=== PATIENT | male | born 1940 | race Caucasian/White ===

== ENCOUNTER 2018-07-31 12:07 | Emergency (ER) | payer MEDICARE, MEDICAID, SELFPAY ==
[2018-07-31 12:08] VITALS: BP 94/57; PULSE 74; RESP 18; TEMP 36.8; O2SAT 95; BMI 22.5
[2018-07-31 12:51] LABS: Bacteria 0 SEEN /hpf (None Seen); Mucous, Urine 0 SEEN /hpf (<or=2+); Red Blood Cells-Urine 0 SEEN /hpf (0-5); Squamous Epithelial Cells - UA 0 SEEN /hpf (0-5); White Blood Cells 0 SEEN /hpf (0-5)
[2018-07-31 12:56] LABS: Color, Urine Yellow (Yellow); Glucose, Dipstick Normal (Normal); Ketone-Dipstick Negative (Negative); Leukocyte Esterase-Dipstick Negative /ul (Negative); Nitrite-Dipstick Negative (Negative); Occult Blood-Urine Negative /ul (Negative); Protein-Dipstick Negative (Negative); Specific Gravity, Urine 1.015 (1.002-1.030); Urine Bilirubin Dipstick Negative (Negative); Urine Clarity Clear (Clear); Urine Urobilinogen Normal (Normal); Urine pH 6.5 (5.0 - 8.0)
[2018-07-31 13:08] LABS: Absolute Lymphocyte Count 0.74 X10^3/ul (0.83-4.51); Absolute Neutrophil Count 8.4 X10^3/uL (2.0-7.7); Basophil# 0.01 X10^3/uL; Basophil% 0.1 % (0-1); Eosinophil# 0.02 X10^3/uL; Eosinophils% 0.2 % (0-5); Hemoglobin 13.3 g/dl (13.0-16.5); Lymphocyte # 0.74 X10^3/ul (4.0); Lymphocyte % 7.5 % (19-41); Mean Corp Hgb Conc 31.7 g/gl (32-36); Mean Corpuscular Hgb 29.4 pg (27.0-32.0); Mean Corpuscular Volume 92.7 fL (80-94); Mean Platelet Vol. 8.6 fl (6.2-12.0); Monocyte# 0.67 X10^3/uL; Monocyte% 6.8 % (0-10); Neutrophil # 8.43 X10^3/uL (2.7-7.7); Platelet Count 140 K/mm3 (150-450); RBC Distribution Width CV 13.4 % (11.6-14.6); RBC Distribution Width SD 45.4 fl (35.1-43.9); Red Blood Count 4.53 M/mm3 (4.6-6.2); White Blood Count 9.9 K/mm3 (4.4-11.0)
[2018-07-31 13:09] LABS: POSITIVE COUNT NO; POSITIVE DIFFERENTIAL NO; POSITIVE MORPHOLOGY NO
[2018-07-31 13:18] LABS: Anion Gap 7 (5-15); BUN 21 mg/dL (7-18); BUN/Creat Ratio 27.6 RATIO (10-20); Calcium,Total 8.6 mg/dL (8.5-10.1); Chloride 108 mmol/L (98-107); Creatinine, Serum 0.76 mg/dL (0.70-1.30); EST Glomerular Filtration Rate 105 mL/min (>60); Est Glom Filt Rate - Afr Amer 127 mL/min (>60); Estimated Creatinine Clearance 58.71 ml/min; Glucose 101 mg/dL (74-106); Potassium 3.3 mmol/L (3.5-5.1); Sodium Level 143 mmol/L (136-145)
--- NOTE | 2018-07-31 14:17 | ED.DCSUM_ITS ---
- ER Visit Summary Date of Service: 07/31/18 Chief Complaint: Urinary retention History of Present Illness: The patient is a 77 M resents with urinary retention that became worse again today. Patient was seen at a different hospital last night and had a straight cath placed. Patient has not been able to urinate since the catheter was placed and removed. Patient has a history of dementia and is a poor historian. Patient was referred to Dr. Lal for follow-up.. Physical Examination: Vital signs are stable. Patient is afebrile. Patient is in no acute distress. Oral mucosa is pink and moist. Neck is supple. Trachea is midline. There is no JVD noted. Heart was regular rate and rhythm. Lungs are clear and equal bilateral. Abdomen is soft. There is some mild suprapubic tenderness. There is some distention of the urinary bladder. There is no rebound or guarding noted. Cranial nerves II through XII are grossly intact. There are no focal motor or sensory deficits noted. The remaining physical exam is within normal limits. Test Results: Urinalysis does not show any evidence of urinary tract infection. CBC and basic metabolic profile was essentially within normal limits. Emergency Department Course and Treatment: Mullen catheter was placed and 750 cc of urine was returned. Mullen catheter was left in place. Patient was given a leg bag. Patient was instructed to follow-up with Dr. Lal in 2-3 days. Patient and family understood and were agreeable with the plan. All questions were answered. Disposition: Discharged to extended care facility Impression: Urinary retention This note was generated with [employer] dictation software. It may contain incorrect words, spelling, and punctuation that were not noted in review of the chart prior to signing ED Disposition - Plan for ED Patient: Disposition: Nursing Home Facility Chief Complaint: Complaint Diagnosis: Urinary retention Instructions: ED Retention Urinary Male Referrals: Emanuel Nelson MD [Primary Care Provider] -
--- OUTSIDE RECORDS SUMMARY | 2018-10-05 09:49 | XMS RPT_ITS ---
:1940 Author Organization [facility] Care Team Providers Name Role Phone JAZMINE ROUSSEAU Attending Unavailable FABRIZIO BURT, DR. DILLON Mccauley Primary Care Unavailable SANJAY BURT, DR. CARRANZA Attending Unavailable FABRIZIO BURT, DR. DILLON Mccauley Primary Care Unavailable FABRIZIO BURT, DR. DILLON Mccauley Primary Care Unavailable NATALIE BURT MD. EVANGELINA Davis Consulting Unavailable MD. EVANGELINA ESTRADA MD. Admitting Unavailable MD. EVANGELINA ESTRADA MD. Attending Unavailable Luigi Curry Attending Unavailable DILLON NELSON Primary Care Unavailable DILLON NELSON Primary Care Unavailable Marcia Arciniega Attending Unavailable DILLON NELSON Primary Care Unavailable Marcia Arciniega Attending Unavailable PROBLEMS PROBLEMS No Problem Records FoundPROCEDURES PROCEDURES No Procedure Records FoundRESULTS RESULTS EMERGENCY DEPARTMENT Observed: 08/09/2018 Status: F Source: [place] 5:08 PM [facility] [place] [place] [facility] Medical Records Department [address] [place] [address] Emergency Department Summary 08/09/18 1511 MR#: [id number] Acct: [id number] Name: BASIL MACKAY Rep #: [id number] : 1940 77 From: Marcia Arciniega MD PCP: Dillon Nelson MD Status: DEP ER - ER Visit Summary Date of Service: 08/09/18 Chief Complaint: Mullen problems History of Present Illness: The patient is a 77 M sent in from [facility] because his Mullen is not draining. Patient was seen in the ER on August 05 for Mullen not draining and then by nurse practitioner for Dr. Lal yesterday. Patient is to continue Cipro. Plan is to have the Mullen removed Sunday morning and then follow-up in the office on Sunday afternoon. Patient was noted to not have the Mullen draining today. ECF reports that they could flush fluid in but not get any return. states the patient's been sleeping more and she is concerned there is more going on. Physical Examination: Vital signs unremarkable. Patient sleeping comfortably. Head neck examination reveals no trauma. Heart is regular rate and rhythm with a 3/6 murmur. Lung sounds are clear. Abdomen is soft and nontender. examination reveals white bloody urine in the leg bag. Mullen had already been advanced and flushed per nursing prior to my eval. Test Results: CBC was normal white count with 12.3 hemoglobin. Chemistry studies significant only for a BUN of 32. Urinalysis reveals 250 of blood and 25-50 RBCs. 10-25 white cells with 1+ bacteria. CT flank shows marked enlargement of the prostate with indentation at the base of the bladder. The catheter is in the bladder and bladder is empty. There is a small noncalcified nodule in the left lower lobe. Emergency Department Course and Treatment: After seeing the patient I spoke with our ER nurse. She states when she went in to see the patient the Mullen seemed to be advanced out further than it should be. It sounds that the patient does get up and walk a lot and they have not been using the secure calf to his leg. With ambulating the Mullen is getting pulled out somewhat. They can then flushed fluid into the catheter, but because the balloon is dislodged it closes over the end of the tube and does not allow anything to be drawn back. When given report back to ECF nurse is sure to advise staff at the [facility] they must use the secure cath and make sure there is no stress on the catheter. Treatment Plan: [] Disposition: Discharge Impression: Mullen dislodgment, resolved This note was generated with [employer] dictation software. It may contain incorrect words, spelling, and punctuation that were not noted in review of the chart prior to signing ED Disposition - Plan for ED Patient: Chief Complaint: Mullen C/O Referrals: Dillon Nelson MD [Primary Care Provider] - What to do if you have Problems For any increased pain, shortness of breath, bleeding, nausea or vomiting, chest pain, or any unexpected problems, contact your Primary Care Provider. Call [facility] ([phone]) or report to the closest Emergency Room. Call 911 if necessary. 08/09/18 1708 <Electronically signed by Marcia Arcinigea MD> Date Marcia Arciniega MD Cosigner Signature (If Indicated): Date CC: Dillon Nelson MD DISCHARGE INSTRUCTION Observed: 08/09/2018 Status: F Source: [place] 3:17 PM [facility] [place] [facility] Medical Records Department [address] [place] [address] Discharge Instruction 08/09/18 1516 MR#: [id number] Acct: [id number] Name: BASIL MACKAY Rep #: [id number] : 1940 77 From: Marcia Arciniega MD PCP: Dillon Nelson MD Status: REG ER ED Disposition - Plan for ED Patient: Disposition: Home or Assisted Living Chief Complaint: Mullen C/O Instructions: ED Catheter Care Mullen Referrals: Saurav Lal MD [STAFF PHYSICIAN] - Keep Teddy appointment What to do if you have Problems For any increased pain, shortness of breath, bleeding, nausea or vomiting, chest pain, or any unexpected problems, contact your Primary Care Provider. Call [facility] ([phone]) or report to the closest Emergency Room. Call 911 if necessary. 08/09/18 1517 <Electronically signed by Marcia Arciniega MD> Date Marcia Arciniega MD Cosigner Signature (If Indicated): Date CC: Dillon Nelson MD URINALYSIS, COMPLETE Collected: 08/09/2018 Status: F Source: [place] 1:40 PM [facility] [place] Order Comment: COLOR OF URINE MAY AFFECT DIPSTICK RESULTS. How was Urine Obtained? CATHETER SPECIMEN TYPE CODE TESTS RESULT OUT OF RANGE REFERENCE UNITS LAB L400.3000 Yellow COLOR Normal Brown LAB L400.3050 Clear Normal CLARITY Cloudy LAB L400.3200 Normal mg/dl Normal GLUCOSE, UR Normal LAB L400.3300 Negative mg/dL Normal BILIRUBIN URINE Negative LAB L400.3400 Negative mg/dl High 5 KETONE UR LAB L400.3465 1.002-1.030 Normal SP.GR. DIPSTX 1.015 LAB L400.3550 5.0 - 8.0 pH UR Normal 6.5 LAB L400.3600 Negative mg/dl High PROT DIPSTX 100 LAB L400.3700 Normal mg/dl Normal UROBILI Normal LAB L400.3750 Negative Normal NITRITE UR Negative LAB L400.3780 Negative /ul High OCCULT BLOOD-UR 250 LAB L400.3800 Negative /ul High LEUK ESTERASE 100 LAB L400.4050 0-5 /hpf WBC Normal 10-25 SEEN LAB L400.4100 0-5 /hpf Normal RBC-UA 25-50 SEEN LAB L400.4150 0-5 /hpf SQUAM Normal EPI 0-5 SEEN LAB L400.4300 None Seen /hpf 1+ Normal BACTERIA LAB L400.4350 <or=2+ /hpf 0 Normal MUCUS, URINE SEEN Performed By: #### L400.0001 #### [facility] [place], [address] CBC W/DIFF, AUTOMATED Collected: 08/09/2018 Status: F Source: [place] 1:40 PM [facility] [place] TYPE CODE TESTS RESULT OUT OF RANGE REFERENCE UNITS LAB L100.1000 4.4-11.0 K/mm3 Normal WBC 9.4 LAB L100.1200 4.6-6.2 M/mm3 Low RBC 4.30 LAB L100.1300 13.0-16.5 g/dl Low HGB 12.3 LAB L100.1400 40-54 % Low HCT 39.9 LAB L100.1500 80-94 fL Normal MCV 92.8 LAB L100.1600 27.0-32.0 pg Normal MCH 28.6 LAB L100.1700 32-36 g/gl Low MCHC 30.8 LAB L100.1810 11.6-14.6 % Normal RDW CV 13.1 LAB L100.1820 35.1-43.9 fl High RDW SD 44.0 LAB L100.1900 150-450 K/mm3 Normal PLT 204 LAB L100.2000 6.2-12.0 fl Normal MPV 8.3 LAB L100.2100 47-70 % High NEUT% 86.6 LAB L100.2200 19-41 % Low LY% 6.5 LAB L100.2300 0-10 % Normal MONO% 5.5 LAB L100.2400 0-5 % Normal EO% 0.3 LAB L100.2500 0-1 % Normal BASO% 0.2 LAB L100.2550 0.0-0.9 % Normal IM GRAN % 0.900 Result Comment: IG% - Immature Granulocytes (promyelocytes, myelocytes and metamyelocytes) > 1% indicates that a LEFT SHIFT is Present. LAB L100.2620 2.0-7.7 X10 3/uL High Absolute Neut 8.1 LAB L100.2720 0.83-4.51 X10 3/ul Low Absolute Lymph 0.61 Performed By: #### L100.0100 #### [facility] [address] [place], [place], [address] BASIC METABOLIC Collected: 08/09/2018 Status: F Source: [place] PROFILE (BMP) 1:40 PM [facility] [place] TYPE CODE TESTS RESULT OUT OF RANGE REFERENCE UNITS LAB L501.0100 74-106 mg/dL Normal GLU 98 Result Comment: Please note revised GLUCOSE reference range effective 2017. LAB L501.1000 7-18 mg/dL High BUN 32 LAB L501.1100 0.70-1.30 mg/dL Normal CREAT,SERUM 0.82 Result Comment: The validity of the calculated GFR AND GFRAA in patients over 70 years has not been determined. Clinical correlation is essential. LAB L501.1110 >60 mL/min Normal EST GFR 96 Result Comment: Non- GFR Calc LAB L501.1115 >60 mL/min Normal EST GFR - AA 117 Result Comment: GFR Calc LAB L501.1255 ml/min Normal Estimated CRCL 73.05 LAB L501.1300 10-20 RATIO High BUN/CRE 39.1 LAB L501.2200 8.5-10 mg/dL Normal .1 CA 8.9 LAB L501.5300 136-14 mmol/L Normal 5 NA 143 LAB L501.5600 3.5-5. mmol/L Normal 1 K 4.0 LAB L501.5900 98-107 mmol/L High CL 109 LAB L501.6100 21.0-3 mmol/L Normal 2.0 CO2 26.0 LAB L501.6200 5-15 Normal GAP 8 Performed By: #### L500.2500 #### [facility] [address] [place], [place], [address] ABDOMEN/PELVIS WITHOUT Observed: 08/09/2018 Status: F Source: [place] CONT 1:25 PM [facility] [place] [facility] Imaging Services [address] [place] [address] Abdomen/Pelvis without Cont MR#: [id number] Acct: [id number] Name: BASIL MACKAY Rep #: [id number] : 1940 M 77 From: J Carlos Oliva MD PCP: Dillon Nelson MD Status: REG ER Study: Abdomen/Pelvis without Cont Date of Exam: 08/09/18 Exam# [id number] Ordering Dr: Marcia Arciniega MD STUDY: CT ABDOMEN AND PELVIS WITHOUT CONTRAST REASON FOR EXAM: Male, 77 years old. Urinary retention. Unable to drain by a Mullen catheter. RADIATION DOSAGE (If Supplied By Facility): CTDIvol = ( 7.73 ) mGy, DLP = ( 442.45 ) mGycm TECHNIQUE: Transaxial images were obtained from the dome of the diaphragm to the symphysis pubis without oral contrast, and without intravenous contrast. Sagittal and coronal images were reconstructed. Individualized dose optimization techniques were used for this CT. COMPARISON: None. FINDINGS: Mild degree of increased markings at the lung bases suggestive of linear atelectasis and/or scarring. Focal bronchiectasis and soft tissue density in the posterior segment of the left lower lobe most likely secondary to scarring. There is a 7.5 mm x 7.4 mm noncalcified nodule in the posterior medial segment of the left lower lobe. Coronary artery calcification. Normal liver. Normal gallbladder and extrahepatic biliary system. Normal spleen. Normal pancreas. Normal bilateral adrenal glands. Tiny bilateral nonobstructive intrarenal calculi. Normal visualized stomach. Normal small intestine. There are multiple colonic diverticula consistent with diverticulosis. The appendix is visualized and appears normal. There is diffuse atherosclerotic calcification of the abdominal aorta, without a demonstrated aneurysm. Normal inferior vena cava. Normal retroperitoneum. A Mullen catheter is seen within the urinary bladder. Thickening of the bladder wall. The urinary bladder is empty. There is marked degree of the enlargement of the prostate measuring 8 cm x 6.7 cm. This causes indentation at the bladder base. Normal abdominal wall. There are mild degenerative changes of the visualized lumbar spine. CT/Abdomen/Pelvis without Cont IMPRESSION: Marked enlargement of the prostate with indentation at the bladder base. A Mullen catheter is seen within the urinary bladder. Urinary bladder is empty. Sigmoid diverticulosis. 7.5 mm x 7.4 mm noncalcified nodule in the posteromedial segment of the left lower lobe. Findings suggestive of a scarring with bronchiectasis in the posterior medial segment of the left lower lobe. Electronically Signed: J Carlos Oliva MD at 14:36 EST , Service support , CC: Dillon Nelson MD; Marcia Arciniega MD Rn Radiology: Signed EMERGENCY DEPARTMENT Observed: 08/05/2018 Status: F Source: [place] SUMMARY 10:11 PM [facility] [place] [facility] Medical Records Department [address] [place] [address] Emergency Department Summary 08/05/18 1646 MR#: [id number] Acct: [id number] Name: BASIL MACKAY Rep #: [id number] : 1940 77 From: Marcia Arciniega MD PCP: Dillon Nelson MD Status: DEP ER - ER Visit Summary Date of Service: 08/05/18 Chief Complaint: Urinary retention History of Present Illness: The patient is a 77 M with history of Alzheimer dementia. He had Mullen catheter placed on July 31 for urinary retention. Reportedly it was not draining at the F this morning and they removed it, but were unable to place a new catheter. Patient currently is on Flomax 0.8 mg daily. is concerned about lack of sterile technique when they were attempted to place catheter and is concerned that he has an infection. Physical Examination: Vital signs unremarkable. Patient sitting upright in bed no acute distress. Heart is regular rate and rhythm. Lung sounds are clear. Abdomen is soft and nontender. Mullen catheter is in place. No blood at the meatus. Test Results: Urinalysis does reveal 10-25 white cells, greater than 100 RBCs, 4+ bacteria. Urine culture is sent. Emergency Department Course and Treatment: Mullen catheter was placed just prior to my evaluation. Dark yellow urine was draining. 1400 cc of urine was noted as output. When I went back to update on the urinalysis findings, she stated that the patient had had a moist sounding cough for the past couple of days. Portal chest x-ray is obtained and does not reveal focal infiltrate. Patient will be treated with a 3- day course of Cipro. Treatment Plan: [] Disposition: Discharge Impression: 1. Urinary retention status post Mullen placement 2. Cystitis This note was generated with [employer] software. It may contain incorrect words, spelling, and punctuation that were not noted in review of the chart prior to signing ED Disposition - Plan for ED Patient: Chief Complaint: Complaint Referrals: Dillon Nelson MD [Primary Care Provider] - What to do if you have Problems For any increased pain, shortness of breath, bleeding, nausea or vomiting, chest pain, or any unexpected problems, contact your Primary Care Provider. Call [facility] ([phone]) or report to the closest Emergency Room. Call 911 if necessary. 08/05/18 2211 <Electronically signed by Marcia Arciniega MD> Date Marcia Arciniega MD Cosigner Signature (If Indicated): Date CC: Dillon Nelson MD DISCHARGE INSTRUCTION Observed: 08/05/2018 Status: F Source: [place] 5:52 PM [facility] [place] [facility] Medical Records Department [address] [place] [address] Discharge Instruction 08/05/18 1751 MR#: [id number] Acct: [id number] Name: BASIL MACKAY Rep #: [id number] : 1940 77 From: Marcia Arciniega MD PCP: Dillon Nelson MD Status: REG ER ED Disposition - Plan for ED Patient: Disposition: Home or Assisted Living Chief Complaint: Complaint Instructions: ED UTI Cystitis Male, ED Retention Urinary Male Prescriptions: Ciprofloxacin [Cipro] 500 mg PO BID #6 tablet Referrals: Dillon Nelson MD [Primary Care Provider] - 3-5 Days What to do if you have Problems For any increased pain, shortness of breath, bleeding, nausea or vomiting, chest pain, or any unexpected problems, contact your Primary Care Provider. Call [facility] ([phone]) or report to the closest Emergency Room. Call 911 if necessary. 08/05/18 1752 <Electronically signed by Marcia Arciniega MD> Date Marcia Arciniega MD Cosigner Signature (If Indicated): Date CC: Dillon Nelson MD CHEST 1 VIEW Observed: 08/05/2018 Status: F Source: [place] (PORTABLE) 5:42 PM [facility] [place] [facility] Imaging Services [address] [place] [id number] Chest 1 View (Portable) MR#: [id number] Acct: [id number] Name: BASIL MACKAY Rep #: [id number] : 1940 M 77 From: [facility] PCP: Dillon Nelson MD Status: REG ER Study: Chest 1 View (Portable) Date of Exam: 08/05/18 Exam# [id number] Ordering Dr: Marcia Arciniega MD STUDY: X-RAY CHEST REASON FOR EXAM: Male, 77 years old. Urinary retention TECHNIQUE: Single AP portable view of the chest. COMPARISON: None. FINDINGS: The lungs are clear and expanded. There is no demonstrated pleural abnormality. Normal size heart. Normal mediastinum and audelia. Normal visualized pulmonary arteries. Normal visualized aortic arch and descending thoracic aorta. Normal visualized thoracic spine. Normal visualized ribs, clavicles, and shoulders. There is no demonstrated abnormality of the visualized soft tissue structures of the upper abdomen. RAD/Chest 1 View (Portable) IMPRESSION: Normal x-ray examination of the chest. Electronically Signed: Raj MirandaDO at 17:56 EST Tel , Service support , CC: Dillon Nelson MD; Marcia Arciniega MD Rn Radiology: Signed URINALYSIS, COMPLETE Collected: 08/05/2018 Status: F Source: [place] 4:40 PM [facility] Order Comment: How was Urine Obtained? RAILWAYS ASSISTANT TO SPECIFY TYPE CODE TESTS RESULT OUT OF RANGE REFERENCE UNITS LAB L400.3000 Yellow COLOR Normal Yellow LAB L400.3050 Clear Normal CLARITY Cloudy LAB L400.3200 Normal mg/dl Normal GLUCOSE, UR Normal LAB L400.3300 Negative mg/dL Normal BILIRUBIN URINE Negative LAB L400.3400 Negative mg/dl High 5 KETONE UR LAB L400.3465 1.002-1.030 Normal SP.GR. DIPSTX 1.010 LAB L400.3550 5.0 - 8.0 pH UR Normal 8.0 LAB L400.3600 Negative mg/dl High PROT 30 DIPSTX LAB L400.3700 Normal mg/dl High 1 UROBILI LAB L400.3750 Negative Normal NITRITE UR Negative LAB L400.3780 Negative /ul High OCCULT BLOOD-UR 250 LAB L400.3800 Negative /ul High LEUK 25 ESTERASE LAB L400.4050 0-5 /hpf WBC Normal 10-25 SEEN LAB L400.4100 0-5 /hpf > Normal RBC-UA 100 SEEN LAB L400.4150 0-5 /hpf SQUAM 0 Normal EPI SEEN LAB L400.4300 None Seen /hpf 4+ Normal BACTERIA LAB L400.4350 <or=2+ /hpf 1+ Normal MUCUS, URINE LAB L400.4900 3+ Normal AMORPHOUS Performed By: #### L400.0001 #### [facility] [address] [place], [address] Observed: 08/05/2018 Status: F Source: [place] CULTURE, URINE 4:40 PM [facility] Urine Culture There are no CLSI standards for interpretation of this Drug/Organism combination. ORGANISM 1: Aerococcus viridans. Clawson Count >100,000 Performed By: #### M100.0650 #### [facility] [address] [place], [address] EMERGENCY DEPARTMENT Observed: 07/31/2018 Status: F Source: [place] SUMMARY 2:18 PM [facility] Medical Records Department [address] [place] [address] Emergency Department Summary 07/31/18 1413 MR#: [id number] Acct: [id number] Name: BASIL MACKAY Rep #: [id number] : 1940 77 From: Luigi Curry DO PCP: Dillon Nelson MD Status: REG ER - ER Visit Summary Date of Service: 07/31/18 Chief Complaint: Urinary retention History of Present Illness: The patient is a 77 M resents with urinary retention that became worse again today. Patient was seen at a different hospital last night and had a straight cath placed. Patient has not been able to urinate since the catheter was placed and removed. Patient has a history of dementia and is a poor historian. Patient was referred to Dr. Lal for follow-up.. Physical Examination: Vital signs are stable. Patient is afebrile. Patient is in no acute distress. Oral mucosa is pink and moist. Neck is supple. Trachea is midline. There is no JVD noted. Heart was regular rate and rhythm. Lungs are clear and equal bilateral. Abdomen is soft. There is some mild suprapubic tenderness. There is some distention of the urinary bladder. There is no rebound or guarding noted. Cranial nerves II through XII are grossly intact. There are no focal motor or sensory deficits noted. The remaining physical exam is within normal limits. Test Results: Urinalysis does not show any evidence of urinary tract infection. CBC and basic metabolic profile was essentially within normal limits. Emergency Department Course and Treatment: Mullen catheter was placed and 750 cc of urine was returned. Mullen catheter was left in place. Patient was given a leg bag. Patient was instructed to follow-up with Dr. Lal in 2-3 days. Patient and family understood and were agreeable with the plan. All questions were answered. Disposition: Discharged to extended care facility Impression: Urinary retention This note was generated with [employer] dictation software. It may contain incorrect words, spelling, and punctuation that were not noted in review of the chart prior to signing ED Disposition - Plan for ED Patient: Disposition: Halfway Facility Chief Complaint: Complaint Diagnosis: Urinary retention Instructions: ED Retention Urinary Male Referrals: Dillon Nelson MD [Primary Care Provider] - What to do if you have Problems For any increased pain, shortness of breath, bleeding, nausea or vomiting, chest pain, or any unexpected problems, contact your Primary Care Provider. Call [facility] ([phone]) or report to the closest Emergency Room. Call 911 if necessary. 07/31/18 1418 <Electronically signed by Luigi Curry DO> Date Luigi Curry DO Cosigner Signature (If Indicated): Date CC: Dillon Nelson MD CBC W/DIFF, AUTOMATED Collected: 07/31/2018 Status: F Source: [place] 12:58 PM [facility] [place] TYPE CODE TESTS RESULT OUT OF RANGE REFERENCE UNITS LAB L100.1000 4.4-11.0 K/mm3 Normal WBC 9.9 LAB L100.1200 4.6-6.2 M/mm3 Low RBC 4.53 LAB L100.1300 13.0-16.5 g/dl Normal HGB 13.3 LAB L100.1400 40-54 % Normal HCT 42.0 LAB L100.1500 80-94 fL Normal MCV 92.7 LAB L100.1600 27.0-32.0 pg Normal MCH 29.4 LAB L100.1700 32-36 g/gl Low MCHC 31.7 LAB L100.1810 11.6-14.6 % Normal RDW CV 13.4 LAB L100.1820 35.1-43.9 fl High RDW SD 45.4 LAB L100.1900 150-450 K/mm3 Low PLT 140 LAB L100.2000 6.2-12.0 fl Normal MPV 8.6 LAB L100.2100 47-70 % High NEUT% 85.0 LAB L100.2200 19-41 % Low LY% 7.5 LAB L100.2300 0-10 % Normal MONO% 6.8 LAB L100.2400 0-5 % Normal EO% 0.2 LAB L100.2500 0-1 % Normal BASO% 0.1 LAB L100.2550 0.0-0.9 % Normal IM GRAN % 0.400 Result Comment: IG% - Immature Granulocytes (promyelocytes, myelocytes and metamyelocytes) > 1% indicates that a LEFT SHIFT is Present. LAB L100.2620 2.0-7.7 X10 3/uL High Absolute Neut 8.4 LAB L100.2720 0.83-4.51 X10 3/ul Low Absolute Lymph 0.74 Performed By: #### L100.0100 #### [facility] [address] [place], [address] BASIC METABOLIC Collected: 07/31/2018 Status: F Source: [place] PROFILE (BMP) 12:58 PM [facility] [place] TYPE CODE TESTS RESULT OUT OF RANGE REFERENCE UNITS LAB L501.0100 74-106 mg/dL Normal GLU 101 Result Comment: Fasting Glucose result from 100 to 125 mg/dL suggests IMPAIRED HOMEOSTASIS per A.D.A. criteria. Please note revised GLUCOSE reference range effective 2017. LAB L501.1000 7-18 mg/dL High BUN 21 LAB L501.1100 0.70-1.30 mg/dL Normal CREAT,SERUM 0.76 Result Comment: The validity of the calculated GFR AND GFRAA in patients over 70 years has not been determined. Clinical correlation is essential. LAB L501.1110 >60 mL/min Normal EST GFR 105 Result Comment: Non- GFR Calc LAB L501.1115 >60 mL/min Normal EST GFR - AA 127 Result Comment: GFR Calc LAB L501.1255 ml/min Normal Estimated CRCL 58.71 LAB L501.1300 10-20 RATIO High BUN/CRE 27.6 LAB L501.2200 8.5-10 mg/dL Normal .1 CA 8.6 LAB L501.5300 136-14 mmol/L Normal 5 NA 143 LAB L501.5600 3.5-5. mmol/L Low 1 K 3.3 LAB L501.5900 98-107 mmol/L High CL 108 LAB L501.6100 21.0-3 mmol/L Normal 2.0 CO2 28.0 LAB L501.6200 5-15 Normal GAP 7 Performed By: #### L500.2500 #### [facility] [address] [place], [address] URINALYSIS, COMPLETE Collected: 07/31/2018 Status: F Source: [place] 12:46 PM [facility] [place] Order Comment: Has pt arrived? Y How was Urine Obtained? CATHETER SPECIMEN TYPE CODE TESTS RESULT OUT OF RANGE REFERENCE UNITS LAB L400.3000 Yellow COLOR Normal Yellow LAB L400.3050 Clear Normal CLARITY Clear LAB L400.3200 Normal mg/dl Normal GLUCOSE, UR Normal LAB L400.3300 Negative mg/dL Normal BILIRUBIN URINE Negative LAB L400.3400 Negative mg/dl Normal KETONE UR Negative LAB L400.3465 1.002-1.030 Normal SP.GR. DIPSTX 1.015 LAB L400.3550 5.0 - 8.0 pH UR Normal 6.5 LAB L400.3600 Negative mg/dl PROT Normal DIPSTX Negative LAB L400.3700 Normal mg/dl Normal UROBILI Normal LAB L400.3750 Negative Normal NITRITE UR Negative LAB L400.3780 Negative /ul Normal OCCULT BLOOD-UR Negative LAB L400.3800 Negative /ul LEUK Normal ESTERASE Negative LAB L400.4050 0-5 /hpf WBC 0 Normal SEEN LAB L400.4100 0-5 /hpf 0 Normal RBC-UA SEEN LAB L400.4150 0-5 /hpf SQUAM 0 Normal EPI SEEN LAB L400.4300 None Seen /hpf 0 Normal BACTERIA SEEN LAB L400.4350 <or=2+ /hpf 0 Normal MUCUS, URINE SEEN Performed By: #### L400.0001 #### [facility] [address] [place], [address] Observed: 04/11/2018 Status: F Source: [facility] 5:31 PM [facility] REPOSITORY . MICRO - Microbiology PROCEDURE: Urine Culture [*1] SOURCE: Urine BODY SITE: COLLECTED DATE/TIME: 04/11/2018 17:31 EDT RECEIVED DATE/TIME: 04/12/2018 15:37 EDT START DATE/TIME: 04/12/2018 15:37 EDT FREE TEXT SOURCE: FINAL REPORTS Final Report [] Verified Date/Time/Personnel: 04/15/2018 09:59 EDT >100,000 organisms per mL Staphylococcus epidermidis PRELIMINARY REPORTS Preliminary Report [] Verified Date/Time/Personnel: 04/14/2018 07:34 EDT >100,000 organisms per mL Staphylococcus coagulase negative Final identification and CANDACE to follow. Preliminary Report [] Verified Date/Time/Personnel: 04/13/2018 12:15 EDT Culture results pending. SUSCEPTIBILITY RESULTS Staphylococcus epidermidis Antibiotic CANDACE Dilutn CANDCAE Interp Ampicillin <=2 Beta Lactamase Positive Nitrofurantoin <=32 Susceptible Oxacillin <=0.25 Susceptible Penicillin 2 Beta Lactamase Positive Trimethoprim/ <=0.5/9.5 Susceptible Sulfa Vancomycin 2 Susceptible Performing Locations *1: This test was performed at: [facility], [address] [place] [address], [address] [place] [address] Performed By: #### CUR #### [place] [address] XR CHEST 2 VIEWS Observed: 04/11/2018 Status: F Source: [facility] 5:04 PM [facility] REPOSITORY ORIGINAL XR CHEST 2 VIEWS CLINICAL STATEMENT: Altered mental status. COMPARISON: None FINDINGS: The cardiac and mediastinal contours are within normal limits. Atherosclerotic calcification is seen at the aortic arch. No pulmonary vascular congestion, focal consolidation, pleural effusion , or pneumothorax is identified. Streaky opacities in the lung bases favor airspace disease/atelectasis, most pronounced in the medial LEFT lower lobe. No acute osseous mallet. IMPRESSION: Mild bibasilar airspace disease or atelectasis, most pronounced in the LEFT lower lobe. I have personally reviewed the images of this examination and agree with the resident's findings and interpretation Interpreted By: Grabiel Tariq MD Preliminary Report By: Reinaldo Self MD Electronically Signed By: Grabiel Tariq MD Dictated Date: 04/11/2018 5:25:19 PM Prelim Date: 04/11/2018 5:27:02 PM Sign Date: 04/11/2018 5:46:30 PM CBC Collected: 04/11/2018 Status: F Source: [facility] 4:46 PM [facility] REPOSITORY TYPE CODE TESTS RESULT OUT OF REFERENCE UNITS RANGE LAB WBC(LOINC) 4.60-10.80 10 3/mcL WBC 8.10 LAB RBCCT(LOINC 4.04-6.13 10 6/mcL ) RBC 4.63 LAB HGB(LOINC) 14.0-18.0 G/dL Low Hgb 13.4 LAB HCT(LOINC) 42.0-52.0 % Low Hct 40.5 LAB MCV(LOINC) 80.0-94.0 fL MCV 87.4 LAB MCH(LOINC) 27.0-31.2 pg MCH 29.0 LAB MCHC(LOINC) 31.8-35.4 G/dL MCHC 33.2 LAB RDW(LOINC) 11.5-14.5 % RDW 12.5 LAB PLT(LOINC) 130-400 10 3/mcL Platelet 192 LAB MPV(LOINC) 7.4-10.4 fL Low MPV 6.2 Performed By: #### CBC, ADIFF, ANEU #### [address] [address] #### TROP, CMP, GFR #### [address] [address] .AUTO DIFF Collected: 04/11/2018 Status: F Source: [facility] 4:46 PM [facility] REPOSITORY TYPE CODE TESTS RESULT OUT OF REFERENCE UNITS RANGE LAB DAVIS(LOINC) 37.0-80.0 % High Neutrophil % 80.3 LAB LYM(LOINC) 10.0-50.0 % Lymphocyte % 12.3 LAB MON(LOINC) 1.7-13.0 % Monocyte % 5.7 LAB EO(LOINC) 0.0-7.0 % Eosinophil % 1.0 LAB BAS(LOINC) 0.0-2.5 % Basophil % 0.7 LAB ABLYM(LOIN 0.77-3.85 10 3/mcL C) Lymphocyte, 1.00 Absolute LAB SUE(LOINC 0.15-1.00 10 3/mcL ) Monocyte, 0.50 Absolute LAB AEOS(LOINC 0.00-0.40 10 3/mcL ) Eosinophil, 0.10 Absolute LAB ABAS(LOINC 0.00-0.19 10 3/mcL ) Basophil, 0.10 Absolute Performed By: #### CBC, ADIFF, ANEU #### [address] [address] #### TROP, CMP, GFR #### [address] [address] .NEUABS Collected: 04/11/2018 Status: F Source: [facility] 4:46 [facility] REPOSITORY TYPE CODE TESTS RESULT OUT OF REFERENCE UNITS RANGE LAB ANEU(LOINC) 2.85-6.16 10 3/mcL High Neutrophil, 6.50 Absolute Performed By: #### CBC, ADIFF, ANEU #### [address] [address] #### TROP, CMP, GFR #### [address] [address] TROP Collected: 04/11/2018 Status: F Source: [facility] 4:46 [facility] REPOSITORY TYPE CODE TESTS RESULT OUT OF REFERENCE UNITS RANGE LAB TROP(LOINC) 0.000-0.040 ng/mL Troponin <0.020 Result Comment: Troponin I reference range: 0.00-0.040 ng/mL Negative and non-diagnostic. >0.040 ng/mL Consistent with cardiac damage, increased clinical risk and possibility of myocardial infarction. Serial measurements, a rise & fall in test results, clinical history, appropriate symptoms and/or ECG changes may help assess possibility of OR. *Other non-acute coronary syndrome conditions such as CHF, myocarditis, pulmonary emboli, sepsis and cardiac surgery could result in myocardial damage and increased troponin levels. Performed By: #### CBC, ADIFF, ANEU #### [address] [address] #### TROP, CMP, GFR #### [place] [address] CMP Collected: 04/11/2018 Status: F Source: [facility] 4:46 PM [facility] REPOSITORY TYPE CODE TESTS RESULT OUT OF REFERENCE UNITS RANGE LAB GLU(LOINC) 83-110 mg/dL Glucose Level 106 LAB NA(LOINC) 136-145 mmol/L Sodium Level 141 LAB K(LOINC) 3.5-5.1 mmol/L Potassium Level 3.9 LAB CL(LOINC) 98-107 mmol/L Chloride 102 LAB CO2(LOINC) 23-31 mmol/L CO2 30 LAB EBAL(LOINC mEq/L ) Electrolyte Balance 9.0 LAB BUN(LOINC) 7-18 mg/dL BUN High 31 LAB CRE(LOINC) 0.70-1.30 mg/dL Creatinine Lvl (s) 0.99 LAB BC(LOINC) 7-27 ratio High BUN/Creatinine 31 Ratio LAB CA(LOINC) 8.4-10.2 mg/dL Calcium Lvl 9.5 LAB PROT(LOINC 6.4-8.2 G/dL ) Total Protein 7.4 LAB ALB(LOINC) 3.4-4.8 G/dL Low Albumin Level 3.3 LAB GLB(LOINC) G/dL Globulin 4.1 LAB AG(LOINC) 1.1-2.5 ratio Low A/G Ratio 0.8 LAB BILT(LOINC 0.2-1.0 mg/dL ) Bili Total 0.7 LAB AP(LOINC) 40-135 U/L Alk Phos 58 LAB AST(LOINC) 10-40 U/L AST/SGOT 14 LAB ALT(LOINC) 10-35 U/L ALT/SGPT 22 Performed By: #### CBC, ADIFF, ANEU #### [address] [address] #### TROP, CMP, GFR #### [place] [address] .GFR Collected: 04/11/2018 Status: F Source: [facility] 4:46 PM [facility] REPOSITORY TYPE CODE TESTS RESULT OUT OF REFERENCE UNITS RANGE LAB GFRAA(LOINC ml/min/1.73 ) sqm GFR 88 [place] Result Comment: GFR Population mean for , Non- Americans Ages 20-29 = 116 mL/min/1.73 sq.m. Ages 30-39 = 107 mL/min/1.73 sq.m. Ages 40-49 = 99 mL/min/1.73 sq.m. Ages 50-59 = 93 mL/min/1.73 sq.m. Ages 60-69 = 85 mL/min/1.73 sq.m. Ages 70+ = 75 mL/min/1.73 sq.m. Chronic Kidney Disease: Less than 60 mL/min/1.73 square meters End Stage Renal Disease: Less than 15 mL/min/1.73 square meters LAB GFRNO(LOINC) ml/min/1.73sqm GFR Non- 73 Result Comment: GFR Population mean for , Non- Americans Ages 20-29 = 116 mL/min/1.73 sq.m. Ages 30-39 = 107 mL/min/1.73 sq.m. Ages 40-49 = 99 mL/min/1.73 sq.m. Ages 50-59 = 93 mL/min/1.73 sq.m. Ages 60-69 = 85 mL/min/1.73 sq.m. Ages 70+ = 75 mL/min/1.73 sq.m. Chronic Kidney Disease: Less than 60 mL/min/1.73 square meters End Stage Renal Disease: Less than 15 mL/min/1.73 square meters Performed By: #### CBC, ADIFF, ANEU #### [address] [address] #### TROP, CMP, GFR #### [address] [address] UA Collected: 04/11/2018 Status: F Source: [facility] 4:46 PM [facility] REPOSITORY TYPE CODE TESTS RESULT OUT OF RANGE REFERENCE UNITS LAB SPCUA(YANIRA NC) UA Specimen Type Void LAB CLRUA(YANIRA NC) UA Color Yellow LAB APPUA(YANIRA Clear NC) UA Appear Clear LAB SGUA(LOIN C) UA Spec Unknown Grav >=1.030 LAB GLUA(LOIN Negative mg/dL C) UA Glucose Negative LAB BILUA(YANIRA Negative NC) UA Bili Negative LAB KETUA(YANIRA Negative mg/dL NC) UA Ketones Negative LAB BLDUA(YANIRA Negative NC) UA Blood Unknown Small LAB PHUA(LOIN C) UA pH 6.0 LAB PROUA(YANIRA Negative mg/dL NC) UA Protein 30 LAB UROUA(YANIRA E.U./dL NC) UA Urobilinogen 0.2 LAB NITUA(YANIRA Negative NC) UA Nitrite Unknown Positive LAB LEUUA(YANIRA Negative NC) UA Leuk Est Negative Performed By: #### UA, UAMICAO #### [place] [id number] .URINALYSIS MICROSCOPIC Collected: 04/11/2018 Status: F Source: [facility] P2i) 4:46 PM [facility] REPOSITORY TYPE CODE TESTS RESULT OUT OF RANGE REFERENCE UNITS LAB WBCUA(LOIN None Seen /hpf C) UA WBC None Seen LAB RBCUA(LOIN None Seen /hpf C) Unknown UA RBC 10-15 LAB EPIUA(LOIN None Seen /hpf C) Unknown UA Squam Epithelial 0-5 LAB BACUA(LOIN /hpf C) Unknown UA Bacteria 2+ Performed By: #### UA, UAMICAO #### [address] [address] UA Collected: 03/25/2018 Status: F Source: [facility] 3:22 AM [facility] REPOSITORY TYPE CODE TESTS RESULT OUT OF RANGE REFERENCE UNITS LAB SPCUA(YANIRA NC) UA Specimen Type Clean Catch LAB CLRUA(YANIRA NC) UA Color Yellow LAB APPUA(YANIRA Clear NC) UA Appear Clear LAB SGUA(LOIN C) UA Spec Unknown Grav 1.010 LAB GLUA(LOIN Negative mg/dL C) UA Glucose Negative LAB BILUA(YANIRA Negative NC) UA Bili Negative LAB KETUA(YANIRA Negative mg/dL NC) UA Ketones Unknown 5 LAB BLDUA(YANIRA Negative NC) UA Blood Negative LAB PHUA(LOIN C) UA pH 6.0 LAB PROUA(YANIRA Negative mg/dL NC) UA Protein Negative LAB UROUA(YANIRA E.U./dL NC) UA Urobilinogen 0.2 LAB NITUA(YANIRA Negative NC) UA Nitrite Negative LAB LEUUA(YANIRA Negative NC) UA Leuk Est Negative Performed By: #### UA, UAMICAO #### [place] [id number] .URINALYSIS MICROSCOPIC Collected: 03/25/2018 Status: F Source: [facility] ([place]) 3:22 AM [facility] REPOS[facility] TYPE CODE TESTS RESULT OUT OF REFERENCE UNITS RANGE LAB WBCUA(LOIN None Seen /hpf C) UA WBC None Seen LAB RBCUA(LOIN None Seen /hpf C) UA RBC None Seen LAB EPIUA(LOIN None Seen /hpf C) UA Squam Epithelial None Seen Performed By: #### UA, UAMICAO #### [place] [address] [place], [place] [address] ALLERGIES ALLERGIES DATE TYPE / CODE NAME / CODE REACTION SEVERITY SOURCE 08/05/2018 Drug Penicillins/ Unknown Unknown [facility] Allergy/4160 [id number]( Hospital [address](SNOMED XNORM) Repository CT) ENCOUNTERS ENCOUNTERS ADMIT/DISCHARGE ACCOUNT NUMBER ADMITTING ENCOUNTER LOCATION SOURCE CLASS 08/09/2018/08/09/19 [id number] Emergency [address] ding:ED Repository 08/05/2018/08/05/19 [id number] Emergency [address] ding:ED Repository 07/31/2018/07/31/19 [id number] Emergency [address] ding:ED Repository 04/11/2018/04/12/20 [id number] NATALIE JANSEN., Ambulatory BBuilding:MS Domenica Pleitez MD. EVANGELINA Davis URRoom: Health [address]221Bed: [facility] Repository 03/25/2018/03/25/20 [id number] Emergency BBuilding:ER Domenica [address] [facility] Repository 03/25/2018/03/25/20 [id number] Emergency BBuilding:PRITI Metzger [address] [facility] Repository PAYERS PAYERS ENCOUNTER GUARANTOR PAYER SUBSCRIBER SOURCE 08/09/2018 BASIL Ricci Primary BASIL Gifford [id number] Charity Insurance:MEDICARE RODGERSDOB: [facility] BPolic [id number] Hospital [place] Number: Repository [facility] [id number] [place], [place] Date:2018-08-09 [id number]: () 08/09/2018 Secondary BASIL Ricci [place] Insurance:MEDICAIDPol RODGERSDOB: Community icy Number: [id number] [facility] [id number] Repository Date:2018-08-09 08/09/2018 Tertiary NOT GIVENUNK [place] Insurance:SELF PAY [facility]: Effective Repository Date:2018-08-09 08/05/2018 BASIL [id number] Primary BASIL DIMAS, Insurance:MEDICARE RODGERSDOB: [facility] [address]Nzf: (330) PART A [facility] [id number] Hospital [phone] () Number: Repository [id number] Date:2018-08-05 08/05/2018 Secondary BASIL Keiry [place] Insurance:MEDICAIDPol RODGERSDOB: [facility] icy Number: [id number] Hospital [id number] Repository Date:2018-08-05 08/05/2018 Tertiary NOT GIVENUNK [place] Insurance:SELF PAY [facility] Number: Effective Repository Date:2018-08-05 07/31/2018 BASIL Ricci [id number] Primary BASIL [facility] S [facility], Insurance:MEDICARE RODGERSDOB: [facility] [address]Afc: (330) PART A [facility] [id number] Hospital [phone] () Number: Repository [id number] Date:2018-07-31 07/31/2018 Secondary BASIL Keiry [place] Insurance:MEDICAIDPol RODGERSDOB: [facility] icy Number: [id number] Hospital [id number] Repository Date:2018-07-31 07/31/2018 Tertiary NOT GIVENUNK [place] Insurance:SELF PAY [facility] Number: Effective Repository Date:2018-07-31 04/11/2018 BASIL Ricci Primary [facility]: Insurance:MEDICARE RODGERSDOB: [facility] [id number] S PART BPolicy Number: [id number] Repository [place] [id number] [address] [place] [address]Fwz: (330) Date:2018-04-11 [place], [place] [phone] (HP)Tel: [id number] [phone]: ([phone]) Name:[place] [address] () Administrators LLCPO (HP)Tel: (000) [address] [address]Dnzpvrlbn, 000-0000 ([place]) [place] [address]VB: 04/11/[address] [facility] Insurance:FIRST RODGERSDOB: [facility] [id number] Repository Number: Donnell ARROYO [id number] [place], [place] Date:2018-04-11 [id number]: [id number] [phone] Name:MOLDER OFFBEARER Box ()Tel: [phone]) [phone] 000-0000 ([place]) [place] [address]CT: 03/25/2018 [facility] RODGERSDOB: Insurance:MEDICARE RODGERSDOB: [facility] S PART BPolicy Number: [id number] Repository [place], [id number] [place] [address]Onk: ([phone]) Date:2018-03-25 - [place], [place] [phone] (HP)Tel: [phone] [phone]: ([phone]) Name:[facility] [id number] () Administrators LLCPO (HP)Tel: (000) [address] [address]Dyzquxoyw, 000-0000 ([place]) [place] [address]YR: 03/25/[address] [facility] Insurance:FIRST RODGERSDOB: [facility] [id number] Repository Number: Donnell ARROYO [id number] [place], [place] Date:2018-03-25 - [address]Tmo: [phone] [phone] Name:MOLDER OFFBEARER Box (HP)Tel: (000) [facility], 000-0000 ([place]) [place] [address]SW: 03/25/2018 [facility] Primary [facility] RODGERSDOB: Insurance:MEDICARE RODGERSDOB: [facility] S PART B INSCOPolicy [id number] Repository [place] D[place], Number: Donnell MONTERO [phone]: [phone] [id number] [place], [place] [phone] (HP)Tel: Date:2018-03-25 [address]Ivj: [phone] [id number] [phone] (WP) Name:PCGS ()Tel: ([phone]) Administrators LLCPO 000-0000 ([place]) [address] [address]woso, [place] [address]XS: 03/25/[address] [facility] Insurance:CENTER RODGERSDOB: [facility] [id number] Repository INSCOPolicy Number: Donnell [place]ROYO [id number] [place], [place] Date:2017-01-27 [address]Ddk: [phone] [id number] [phone] Name:MOLDER OFFBEARER BOX ()Tel: 000 [address], [place] 000[address]0000 ([place]) [id number]:
== END 2018-07-31 15:11 | disposition skilled nursing facility (03) ==
PROVIDERS: Emergency Provider Emergency Medicine; Family Provider Family Medicine; PCP Family Medicine
DX: N40.1 Benign prostatic hyperplasia with lower urinary tract symptoms (principal); R33.8 Other retention of urine; I10 Essential (primary) hypertension; F03.90 Unspecified dementia, unspecified severity, without behavioral disturbance, psychotic disturbance, mood disturbance, and anxiety; Z85.828 Personal history of other malignant neoplasm of skin
CPT/HCPCS: 51702; 80048; 81001; 85025; 99284; A4216

== ENCOUNTER 2018-08-05 16:29 | Emergency (ER) | payer MEDICARE, MEDICAID, SELFPAY ==
[2018-08-05 16:31] VITALS: BP 118/68; PULSE 86; RESP 18; TEMP 36.8; O2SAT 96; BMI 23.4
[2018-08-05 16:46] LABS: Squamous Epithelial Cells - UA 0 SEEN /hpf (0-5)
--- NOTE | 2018-08-05 16:46 | ED.VISSUMM ---
- ER Visit Summary Date of Service: 08/05/18 Chief Complaint: Urinary retention History of Present Illness: The patient is a 77 M with history of Alzheimer dementia. He had Mullen catheter placed on July 31 for urinary retention. Reportedly it was not draining at the F this morning and they removed it, but were unable to place a new catheter. Patient currently is on Flomax 0.8 mg daily. is concerned about lack of sterile technique when they were attempted to place catheter and is concerned that he has an infection. Physical Examination: Vital signs unremarkable. Patient sitting upright in bed no acute distress. Heart is regular rate and rhythm. Lung sounds are clear. Abdomen is soft and nontender. Mullen catheter is in place. No blood at the meatus. Test Results: Urinalysis does reveal 10-25 white cells, greater than 100 RBCs, 4+ bacteria. Urine culture is sent. Emergency Department Course and Treatment: Mullen catheter was placed just prior to my evaluation. Dark yellow urine was draining. 1400 cc of urine was noted as output. When I went back to update on the urinalysis findings, she stated that the patient had had a moist sounding cough for the past couple of days. Portal chest x-ray is obtained and does not reveal focal infiltrate. Patient will be treated with a 3-day course of Cipro. Treatment Plan: [] Disposition: Discharge Impression: 1. Urinary retention status post Mullen placement 2. Cystitis This note was generated with [employer] dictation software. It may contain incorrect words, spelling, and punctuation that were not noted in review of the chart prior to signing ED Disposition - Plan for ED Patient: Chief Complaint: Complaint Referrals: Emanuel Nelson MD [Primary Care Provider] -
[2018-08-05 17:27] LABS: Color, Urine Yellow (Yellow); Glucose, Dipstick Normal (Normal); Ketone-Dipstick 5 mg/dl (Negative); Leukocyte Esterase-Dipstick 25 /ul (Negative); Nitrite-Dipstick Negative (Negative); Occult Blood-Urine 250 /ul (Negative); Protein-Dipstick 30 mg/dl (Negative); Urine Bilirubin Dipstick Negative (Negative); Urine Clarity Cloudy (Clear); Urine Urobilinogen 1 mg/dl (Normal)
[2018-08-05 17:35] LABS: Amorphous Sediment 3+; Bacteria 4+ /hpf (None Seen); Mucous, Urine 1+ /hpf (<or=2+); Red Blood Cells-Urine > 100 SEEN /hpf (0-5); White Blood Cells 10-25 SEEN /hpf (0-5)
--- NOTE | 2018-08-05 17:45 | RAD_ITS ---
STUDY: X-RAY CHEST REASON FOR EXAM: Male, 77 years old. Urinary retention TECHNIQUE: Single AP portable view of the chest. COMPARISON: None. FINDINGS: The lungs are clear and expanded. There is no demonstrated pleural abnormality. Normal size heart. Normal mediastinum and audelia. Normal visualized pulmonary arteries. Normal visualized aortic arch and descending thoracic aorta. Normal visualized thoracic spine. Normal visualized ribs, clavicles, and shoulders. There is no demonstrated abnormality of the visualized soft tissue structures of the upper abdomen. RAD/Chest 1 View (Portable) IMPRESSION: Normal x-ray examination of the chest. Electronically Signed: Raj Miranda DO at 17:56 EST Tel , Service support ,
--- NOTE | 2018-08-05 17:51 | ED.DEP ---
ED Disposition - Plan for ED Patient: Disposition: Home or Assisted Living Chief Complaint: Complaint Instructions: ED UTI Cystitis Male, ED Retention Urinary Male Prescriptions: Ciprofloxacin [Cipro] 500 mg PO BID #6 tablet Referrals: Emanuel Nelson MD [Primary Care Provider] - 3-5 Days
[2018-08-05] MEDS: Ciprofloxacin 500 MG Tablet PO (18:01)
[2018-08-05 18:27] VITALS: BP 106/49; PULSE 63; RESP 17; O2SAT 97
--- NOTE | 2018-08-05 18:33 | ED.RN ---
report called to [facility]. nurse voices no futher questions in report.
--- OUTSIDE RECORDS SUMMARY | 2018-10-08 04:39 | XMS RPT_ITS ---
[...] Status: F Source: [place] SUMMARY 5:08 PM [facility] REPOSITORY [facility] Medical Records Department [address] [place] [address] Emergency Department Summary 08/09/18 1511 MR#: [id number] Acct: [id number] Name: BASIL MACKAY Rep #: [id number] : 1940 77 From: Marcia Arciniega MD PCP: Dillon Nelson MD Status: DEP ER - ER Visit Summary Date of Service: 08/09/18 Chief Complaint: Mullen problems History of Present Illness: The patient is a 77 M sent in from [facility] because his Mullen is not draining. Patient [...] to advise staff at the [facility] they must use the secure cath and make sure there is no stress on the catheter. Treatment Plan: [] Disposition: Discharge Impression: Mullen dislodgment, resolved This note was generated with [employer] dictation software. It may contain incorrect words, [...] problems, contact your Primary Care Provider. Call [facility] ([phone]) or report to the closest Emergency Room. Call 911 if necessary. 08/09/18 1708 <Electronically signed by Marcia Arciniega MD> Date Marcia Arciniega MD Cosigner Signature (If Indicated): Date CC: Dillon Nelson MD DISCHARGE INSTRUCTION Observed: 08/09/2018 Status: F Source: [place] 3:17 PM [facility] REPOSITORY [facility] Medical Records Department [address] [place] [address] Discharge Instruction 08/09/18 1516 MR#: [id number] Acct: [id number] Name: BASIL MACKAY Rep #: [id number] : 1940 77 From: Marcia Arciniega MD [...] your Primary Care Provider. Call [facility] ([phone]) or report to the closest Emergency Room. Call 911 if necessary. 08/09/18 1517 <Electronically signed by Marcia Arciniega MD> Date Marcia Arciniega MD Cosigner Signature (If Indicated): Date CC: Dillon Nelson MD URINALYSIS, COMPLETE Collected: 08/09/2018 Status: F Source: [place] 1:40 PM [facility] REPOSITORY Order Comment: COLOR OF URINE MAY [...] URINE SEEN Performed By: #### L400.0001 #### [facility] [place], [address] CBC W/DIFF, AUTOMATED Collected: 08/09/2018 Status: F Source: [place] 1:40 PM [facility] REPOSITORY TYPE CODE TESTS RESULT OUT OF [...] Lymph 0.61 Performed By: #### L100.0100 #### [facility] [address] [place], [place], [address] BASIC METABOLIC Collected: 08/09/2018 Status: F Source: [place] PROFILE (BMP) 1:40 PM [facility] REPOSITORY TYPE CODE TESTS RESULT OUT OF [...] GAP 8 Performed By: #### L500.2500 #### [facility] [address] [place], [place], [address] ABDOMEN/PELVIS WITHOUT Observed: 08/09/2018 Status: F Source: [place] CONT 1:25 PM [facility] REPOSITORY [facility] Imaging Services [address] [place] [address] Abdomen/Pelvis without Cont MR#: [id number] Acct: [id number] Name: BASIL MACKAY Rep #: [id number] : 1940 M 77 From: J Carlos Oliva MD PCP: Dillon Nelson MD Status: REG ER Study: Abdomen/Pelvis without Cont Date of Exam: 08/09/18 Exam# [id number] Ordering Dr: Marcia Arciniega MD STUDY: CT [...] CC: Dillon Nelson MD; Marcia Arciniega MD Worm Raiser: Signed EMERGENCY DEPARTMENT Observed: 08/05/2018 Status: F Source: [place] SUMMARY 10:11 PM [facility] REPOSITORY [facility] Medical Records Department [address] [place] [address] Emergency Department Summary 08/05/18 1646 MR#: [id number] Acct: [id number] Name: BASIL MACKAY Rep #: [id number] : 1940 77 From: Marcia Arciniega MD [...] 2. Cystitis This note was generated with [employer] software. It may contain incorrect words, spelling, [...] problems, contact your Primary Care Provider. Call [facility] ([phone]) or report to the closest Emergency Room. Call 911 if necessary. 08/05/18 2211 <Electronically signed by Marcia Arciniega MD> Date Marcia Arciniega MD Cosigner Signature (If Indicated): Date CC: Dillon Nelson MD DISCHARGE INSTRUCTION Observed: 08/05/2018 Status: F Source: [place] 5:52 PM [facility] REPOSITORY [facility] Medical Records Department [address] [place] [address] Discharge Instruction 08/05/18 1751 MR#: [id number] Acct: [id number] Name: BASIL MACKAY Rep #: [id number] : 1940 77 From: Marcia Arciniega MD [...] your Primary Care Provider. Call [facility] ([phone]) or report to the closest Emergency Room. Call 911 if necessary. 08/05/18 1752 <Electronically signed by Marcia Arciniega MD> Date Marcia Arciniega MD Cosigner Signature (If Indicated): Date CC: Dillon Nelson MD CHEST 1 VIEW Observed: 08/05/2018 Status: F Source: [place] (PORTABLE) 5:42 PM [facility] REPOSITORY [facility] Imaging Services [address] [place] [address] Chest 1 View (Portable) MR#: [id number] Acct: [id number] Name: BASIL MACKAY Rep #: [id number] : 1940 M 77 From: [facility] PCP: Dillon Nelson MD Status: REG ER Study: Chest 1 View (Portable) Date of Exam: 08/05/18 Exam# [id number] Ordering Dr: Marcia Arciniega MD STUDY: X-RAY [...] CC: Dillon Nelson MD; Marcia Arciniega MD Worm Raiser: Signed URINALYSIS, COMPLETE Collected: 08/05/2018 Status: F Source: [place] 4:40 PM [facility] REPOSITORY Order Comment: How was Urine Obtained? [employer] TO SPECIFY TYPE CODE TESTS RESULT OUT [...] Normal AMORPHOUS Performed By: #### L400.0001 #### [facility] [address] [place], [address] Observed: 08/05/2018 Status: F Source: [place] CULTURE, URINE 4:40 PM [facility] REPOSITORY Urine Culture There are no CLSI standards for interpretation of this Drug/Organism combination. ORGANISM 1: Aerococcus viridans. [place] Count >100,000 Performed By: #### M100.0650 #### [facility] [address] [place], [address] EMERGENCY DEPARTMENT Observed: 07/31/2018 Status: F Source: [place] SUMMARY 2:18 PM [facility] REPOSITORY [facility] Medical Records Department [address] [place] [address] Emergency Department Summary 07/31/18 1413 MR#: [id number] Acct: [id number] Name: BASIL MACKAY Rep #: [id number] : 1940 77 From: Luigi Curry DO [...] Urinary retention This note was generated with [employer] dictation software. It may contain incorrect words, spelling, and punctuation that were not noted in review of the chart prior to signing ED Disposition - Plan for ED Patient: Disposition: Assisted Facility Chief Complaint: Complaint Diagnosis: Urinary retention Instructions: ED Retention Urinary Male Referrals: Dillon Nelson MD [Primary Care Provider] - What to do if you have Problems For any increased pain, shortness of breath, bleeding, nausea or vomiting, chest pain, or any unexpected problems, contact your Primary Care Provider. Call [facility] ([phone]) or report to the closest Emergency Room. Call 911 if necessary. 07/31/18 1418 <Electronically signed by Luigi Curry DO> Date Luigi Curry DO Cosigner Signature (If Indicated): Date CC: Dillon Nelson MD CBC W/DIFF, AUTOMATED Collected: 07/31/2018 Status: F Source: [place] 12:58 PM [facility] REPOSITORY TYPE CODE TESTS RESULT OUT OF [...] Lymph 0.74 Performed By: #### L100.0100 #### [facility] [address] [place], [address] BASIC METABOLIC Collected: 07/31/2018 Status: F Source: [place] PROFILE (BMP) 12:58 PM [facility] REPOSITORY TYPE CODE TESTS RESULT OUT OF [...] GAP 7 Performed By: #### L500.2500 #### [facility] [address] [place], [address] URINALYSIS, COMPLETE Collected: 07/31/2018 Status: F Source: [place] 12:46 PM [facility] REPOSITORY Order Comment: Has pt arrived? Y [...] URINE SEEN Performed By: #### L400.0001 #### [facility] [address] [place], [address] Observed: 04/11/2018 Status: F Source: [facility] 5:31 PM [facility] REPOSITORY . MICRO - Microbiology PROCEDURE: Urine [...] SUSCEPTIBILITY RESULTS Staphylococcus epidermidis Antibiotic CANDACE Dilutn CANDACE Interp Ampicillin <=2 Beta Lactamase Positive Nitrofurantoin <=32 Susceptible Oxacillin <=0.25 Susceptible Penicillin 2 Beta Lactamase Positive Trimethoprim/ <=0.5/9.5 Susceptible Sulfa Vancomycin 2 Susceptible Performing Locations *1: This test was performed at: [facility], [address] [place] [address], [address] [place] [address] Performed By: #### CUR #### [place] [address] XR CHEST 2 VIEWS Observed: 04/11/2018 Status: F Source: [facility] 5:04 PM [facility] REPOSITORY ORIGINAL XR CHEST 2 VIEWS CLINICAL [...] PM CBC Collected: 04/11/2018 Status: F Source: [facility] 4:46 PM [facility] REPOSITORY TYPE CODE TESTS RESULT OUT OF [...] Performed By: #### CBC, ADIFF, ANEU #### [address] [address] #### TROP, CMP, GFR #### [address] [address] .AUTO DIFF Collected: 04/11/2018 Status: F Source: [facility] 4:46 PM [facility] REPOSITORY TYPE CODE TESTS RESULT OUT OF [...] Performed By: #### CBC, ADIFF, ANEU #### [address] [address] #### TROP, CMP, GFR #### [address] [address] .NEUABS Collected: 04/11/2018 Status: F Source: [facility] 4:46 [facility] REPOSITORY TYPE CODE TESTS RESULT OUT OF REFERENCE UNITS RANGE LAB ANEU(LOINC) 2.85-6.16 10 3/mcL High Neutrophil, 6.50 Absolute Performed By: #### CBC, ADIFF, ANEU #### [address] [address] #### TROP, CMP, GFR #### [address] [address] TROP Collected: 04/11/2018 Status: F Source: [facility] 4:46 [facility] REPOSITORY TYPE CODE TESTS RESULT OUT OF REFERENCE UNITS RANGE LAB TROP(LOINC) 0.000-0.040 ng/mL Troponin <0.020 Result Comment: Troponin I reference range: 0.00-0.040 ng/mL Negative and non-diagnostic. >0.040 ng/mL Consistent with cardiac damage, increased clinical risk and possibility of myocardial infarction. Serial measurements, a rise & fall in test results, clinical history, appropriate symptoms and/or ECG changes may help assess possibility of DE. *Other non-acute coronary syndrome conditions such as CHF, myocarditis, pulmonary emboli, sepsis and cardiac surgery could result in myocardial damage and increased troponin levels. Performed By: #### CBC, ADIFF, ANEU #### [address] [address] #### TROP, CMP, GFR #### [place] [address] CMP Collected: 04/11/2018 Status: F Source: [facility] 4:46 PM [facility] REPOSITORY TYPE CODE TESTS RESULT OUT OF [...] Performed By: #### CBC, ADIFF, ANEU #### [address] [address] #### TROP, CMP, GFR #### [place] [address] .GFR Collected: 04/11/2018 Status: F Source: [facility] 4:46 PM [facility] REPOSITORY TYPE CODE TESTS RESULT OUT OF REFERENCE UNITS RANGE LAB GFRAA(LOINC ml/min/1.73 ) sqm GFR 88 Erit[place]an Result Comment: GFR Population mean for , [...] Performed By: #### CBC, ADIFF, ANEU #### [address] [address] #### TROP, CMP, GFR #### [address] [address] UA Collected: 04/11/2018 Status: F Source: [facility] 4:46 [facility] REPOSIT[facility] TYPE CODE TESTS [...] Negative Performed By: #### UA, UAMICAO #### [place] [id number] .URINALYSIS MICROSCOPIC Collected: 04/11/2018 Status: F Source: [place] SeamBLiSS) 4:46 PM [facility] REPOSITORY TYPE CODE TESTS RESULT OUT OF RANGE REFERENCE UNITS LAB WBCUA(LOIN None Seen /hpf C) UA WBC None Seen LAB RBCUA(LOIN None Seen /hpf C) Unknown UA RBC 10-15 LAB EPIUA(LOIN None Seen /hpf C) Unknown UA Squam Epithelial 0-5 LAB BACUA(LOIN /hpf C) Unknown UA Bacteria 2+ Performed By: #### UA, UAMICAO #### [address] [address] UA Collected: 03/25/2018 Status: F Source: [facility] 3:22 AM [facility] REPOSITORY TYPE CODE TESTS RESULT OUT OF [...] Negative Performed By: #### UA, UAMICAO #### [place] [id number] .URINALYSIS MICROSCOPIC Collected: 03/25/2018 Status: F Source: [place] [facility] 3:22 [facility] RE[facility] TYPE CODE TESTS RESULT OUT OF REFERENCE UNITS RANGE LAB WBCUA(LOIN None Seen /hpf C) UA WBC None Seen LAB RBCUA(LOIN None Seen /hpf C) UA RBC None Seen LAB EPIUA(LOIN None Seen /hpf C) UA Squam Epithelial None Seen Performed By: #### UA, UAMICAO #### Domenica [place] [address] [place], [place] [address] ALLERGIES ALLERGIES DATE TYPE / CODE NAME / CODE REACTION SEVERITY SOURCE 08/05/2018 Drug Penicillins/ Unknown Unknown [facility] Allergy/4160 [id number]( Hospital [address]63(SNOMED XNORM) Repository CT) ENCOUNTERS ENCOUNTERS ADMIT/DISCHARGE ACCOUNT NUMBER ADMITTING ENCOUNTER LOCATION SOURCE CLASS 08/09/2018/08/09/19 [id number] Emergency [address] ding:ED Repository 08/05/2018/08/05/19 [id number] Emergency [address] ding:ED Repository 07/31/2018/07/31/19 [id number] Emergency [address] ding:ED Repository 04/11/2018/04/12/20 [id number] NATALIE JANSEN., Ambulatory BBuilding:MS Domenica Pleitez MD. EVANGELINA Davis URRoom: Health 0221Bed: [facility] Repository 03/25/2018/03/25/20 [id number] Emergency BBuilding:ER Domenica [address] [facility] Repository 03/25/2018/03/25/20 [id number] Emergency BBuilding:PRITI Metzger [address] [facility] Repository PAYERS PAYERS ENCOUNTER GUARANTOR PAYER SUBSCRIBER SOURCE 08/09/2018 BASIL Ricci Primary BASIL [place] [id number] Charity Insurance:MEDICARE RODGERSDOB: [facility] BPolic [id number] Hospital [place] Number: Repository [facility] [id number] [place], [place] Date:2018-08-09 32586Lef: () 08/09/2018 Secondary BASIL Ricci [place] Insurance:MEDICAIDPol RODGERSDOB: Community icy Number: [id number] Hospital [id number] Repository Date:2018-08-09 08/09/2018 Tertiary NOT GIVENUNK [place] Insurance:SELF PAY [facility] Number: Effective Repository Date:2018-08-09 08/05/2018 BASIL MACKAY833 Primary BASIL DIM[place], Insurance:MEDICARE RODGERSDOB: [facility] [id number]: (330) PART A [facility] [id number] Hospital [phone] () Number: Repository [id number] Date:2018-08-05 08/05/2018 Secondary BASIL Keiry [place] Insurance:MEDICAIDPol RODGERSDOB: [facility] icy Number: [id number] Hospital [id number] Repository Date:2018-08-05 08/05/2018 Tertiary NOT GIVENUNK [place] Insurance:SELF PAY [facility] Number: Effective Repository Date:2018-08-05 07/31/2018 BASIL Ricci [id number] Primary BASIL [place] [facility], Insurance:MEDICARE RODGERSDOB: [facility] [address]Poh: (330) PART A [facility] [id number] Hospital [phone] () Number: Repository [id number] Date:2018-07-31 07/31/2018 Secondary BASIL Keiry [place] Insurance:MEDICAIDPol RODGERSDOB: [facility] icy Number: [id number] Hospital [id number] Repository Date:2018-07-31 07/31/2018 Tertiary NOT GIVENUNK [place] Insurance:SELF PAY [facility] Number: Effective Repository Date:2018-07-31 04/11/2018 BASIL Ricci Primary [facility] RODGER[facility]: Insurance:MEDICARE RODGERSDOB: [facility] [id number] S PART BPolicy Number: [id number] Repository [address] [id number] [address] [place] [address]Uhf: (330) Date:2018-04-11 [place], [place] [phone] (HP)Tel: [id number] [phone]: ([phone]) Name:[place] [id number] () Administrators LLCPO (HP)Tel: (000) [address] [address]Nzuzvwqjo, 000-0000 ([place]) [place] [address]LN: 04/11/2018 Secondary [facility] Insurance:FIRST RODGERSDOB: [facility] [id number] Repository Number: [address]nell [place]ROY[address] [id number] [place], [place] Date:2018-04-11 [address]Ohb: [id number] [phone] Name:LOCUM TENENS Box ()Tel: (000) [facility], 000-0000 ([place]) [place] [address]RK: 03/25/2018 [facility] RODGERSDOB: Insurance:MEDICARE RODGERSDOB: [facility] S PART BPolicy Number: [id number] Repository [place] D[place], [id number] [address] [place] [address]Qei: (330) Date:2018-03-25 - [place], [place] [phone] (HP)Tel: [id number] [phone]: ([phone]) Name:[facility] [id number] () Administrators LLCPO (HP)Tel: (000) [address] [address]Chpbnjxqo, 000-0000 ([place]) [place] [address]CH: 03/25/2018 Secondary [facility] Insurance:FIRST RODGERSDOB: [facility] [id number] Repository Number: [address] [place]Y[address] [id number] [place], [place] Date:2018-03-25 - [address]Kgm: [phone] [id number] [phone] Name:LOCUM TENENS Box (HP)Tel: (000) [facility], 000-0000 ([place]) [place] [address]AW: 03/25/2018 [facility] Primary [facility] RODGERSDOB: Insurance:MEDICARE RODGERSDOB: [facility] S PART B [employer] [id number] Repository [place]INA DIM[place], Number: [address] [place] [address]Zju: [phone] [id number] [place], [place] [phone] (HP)Tel: Date:2018-03-25 [address]Pwa: [id number] [phone] (WP) Name:PCGS ()Tel: ([phone]) Administrators LLCPO 000-0000 (WP) [address] [address], [place] [address]MH: 03/25/2018 Secondary [facility] Insurance:[employer] RODGERSDOB: [facility] [id number] Repository [employer]SC[employer] Number: [address] [id number] [place], [place] Date:2017-01-27 [address]Zzr: [phone] [phone] Name:LOCUM TENENS BOX ()Tel: 000 [place], [place] 000[address] ([place]) [id number]:
== END 2018-08-05 18:34 | disposition skilled nursing facility (03) ==
PROVIDERS: Emergency Provider Emergency Medicine; Family Provider Family Medicine; PCP Family Medicine
DX: R33.9 Retention of urine, unspecified (principal); N30.90 Cystitis, unspecified without hematuria; I10 Essential (primary) hypertension; G30.9 Alzheimer's disease, unspecified; F02.80 Dementia in other diseases classified elsewhere, unspecified severity, without behavioral disturbance, psychotic disturbance, mood disturbance, and anxiety; Z79.899 Other long term (current) drug therapy
CPT/HCPCS: 51702; 71045; 81001; 87077; 87086; 87088; 99285

== ENCOUNTER 2018-08-09 12:29 | Emergency (ER) | payer MEDICARE, MEDICAID, SELFPAY ==
[2018-08-09 12:30] VITALS: BP 105/57; PULSE 83; RESP 16; TEMP 36.7; O2SAT 94; BMI 26.6
--- NOTE | 2018-08-09 13:24 | CT_ITS ---
STUDY: CT ABDOMEN AND PELVIS WITHOUT CONTRAST REASON FOR EXAM: Male, 77 years old. Urinary retention. Unable to drain by a Mullen catheter. RADIATION DOSAGE (If Supplied By Facility): CTDIvol = ( 7.73 ) mGy, DLP = ( 442.45 ) mGycm TECHNIQUE: Transaxial images were obtained from the dome of the diaphragm to the symphysis pubis without oral contrast, and without intravenous contrast. Sagittal and coronal images were reconstructed. Individualized dose optimization techniques were used for this CT. COMPARISON: None. FINDINGS: Mild degree of increased markings at the lung bases suggestive of linear atelectasis and/or scarring. Focal bronchiectasis and soft tissue density in the posterior segment of the left lower lobe most likely secondary to scarring. There is a 7.5 mm x 7.4 mm noncalcified nodule in the posterior medial segment of the left lower lobe. Coronary artery calcification. Normal liver. Normal gallbladder and extrahepatic biliary system. Normal spleen. Normal pancreas. Normal bilateral adrenal glands. Tiny bilateral nonobstructive intrarenal calculi. Normal visualized stomach. Normal small intestine. There are multiple colonic diverticula consistent with diverticulosis. The appendix is visualized and appears normal. There is diffuse atherosclerotic calcification of the abdominal aorta, without a demonstrated aneurysm. Normal inferior vena cava. Normal retroperitoneum. A Mullen catheter is seen within the urinary bladder. Thickening of the bladder wall. The urinary bladder is empty. There is marked degree of the enlargement of the prostate measuring 8 cm x 6.7 cm. This causes indentation at the bladder base. Normal abdominal wall. There are mild degenerative changes of the visualized lumbar spine. CT/Abdomen/Pelvis without Cont IMPRESSION: Marked enlargement of the prostate with indentation at the bladder base. A Mullen catheter is seen within the urinary bladder. Urinary bladder is empty. Sigmoid diverticulosis. 7.5 mm x 7.4 mm noncalcified nodule in the posteromedial segment of the left lower lobe. Findings suggestive of a scarring with bronchiectasis in the posterior medial segment of the left lower lobe. Electronically Signed: J Carlos Oliva MD at 14:36 EST , Service support ,
[2018-08-09 13:33] VITALS: BP 109/59; PULSE 71; RESP 14; TEMP 36.3; O2SAT 96
[2018-08-09 13:50] LABS: Mucous, Urine 0 SEEN /hpf (<or=2+)
[2018-08-09 14:00] VITALS: BP 107/61; PULSE 74; RESP 14; TEMP 36.4; O2SAT 97
[2018-08-09 14:01] LABS: Absolute Lymphocyte Count 0.61 X10^3/ul (0.83-4.51); Absolute Neutrophil Count 8.1 X10^3/uL (2.0-7.7); Basophil# 0.02 X10^3/uL; Basophil% 0.2 % (0-1); Color, Urine Brown (Yellow); Eosinophil# 0.03 X10^3/uL; Eosinophils% 0.3 % (0-5); Glucose, Dipstick Normal (Normal); Hematocrit 39.9 % (40-54); Hemoglobin 12.3 g/dl (13.0-16.5); Ketone-Dipstick 5 mg/dl (Negative); Leukocyte Esterase-Dipstick 100 /ul (Negative); Lymphocyte # 0.61 X10^3/ul (4.0); Lymphocyte % 6.5 % (19-41); Mean Corp Hgb Conc 30.8 g/gl (32-36); Mean Corpuscular Hgb 28.6 pg (27.0-32.0); Mean Corpuscular Volume 92.8 fL (80-94); Mean Platelet Vol. 8.3 fl (6.2-12.0); Monocyte# 0.51 X10^3/uL; Monocyte% 5.5 % (0-10); Neutrophil % 86.6 % (47-70); Nitrite-Dipstick Negative (Negative); Occult Blood-Urine 250 /ul (Negative); Platelet Count 204 K/mm3 (150-450); Protein-Dipstick 100 mg/dl (Negative); RBC Distribution Width CV 13.1 % (11.6-14.6); Specific Gravity, Urine 1.015 (1.002-1.030); Urine Bilirubin Dipstick Negative (Negative); Urine Clarity Cloudy (Clear); Urine Urobilinogen Normal (Normal); Urine pH 6.5 (5.0 - 8.0); White Blood Count 9.4 K/mm3 (4.4-11.0)
[2018-08-09 14:05] LABS: Anion Gap 8 (5-15); BUN 32 mg/dL (7-18); BUN/Creat Ratio 39.1 RATIO (10-20); Bacteria 1+ /hpf (None Seen); Calcium,Total 8.9 mg/dL (8.5-10.1); Chloride 109 mmol/L (98-107); Creatinine, Serum 0.82 mg/dL (0.70-1.30); EST Glomerular Filtration Rate 96 mL/min (>60); Est Glom Filt Rate - Afr Amer 117 mL/min (>60); Estimated Creatinine Clearance 73.05 ml/min; Glucose 98 mg/dL (74-106); POSITIVE COUNT NO; POSITIVE DIFFERENTIAL NO; POSITIVE MORPHOLOGY NO; Red Blood Cells-Urine 25-50 SEEN /hpf (0-5); Sodium Level 143 mmol/L (136-145); Squamous Epithelial Cells - UA 0-5 SEEN /hpf (0-5); White Blood Cells 10-25 SEEN /hpf (0-5)
[2018-08-09] MEDS: 0.9% Normal Saline 1,000 ML 150 ML IV (14:10)
--- NOTE | 2018-08-09 15:11 | ED.VISSUMM ---
- ER Visit Summary Date of Service: 08/09/18 Chief Complaint: Mullen problems History of Present Illness: The patient is a 77 M sent in from [facility] because his Mullen is not draining. Patient was seen in the ER on August 05 for Mullen not draining and then by nurse practitioner for Dr. Lal yesterday. Patient is to continue Cipro. Plan is to have the Mullen removed Sunday morning and then follow-up in the office on Sunday afternoon. Patient was noted to not have the Mullen draining today. [facility] reports that they could flush fluid in but not get any return. states the patient's been sleeping more and she is concerned there is more going on. Physical Examination: Vital signs unremarkable. Patient sleeping comfortably. Head neck examination reveals no trauma. Heart is regular rate and rhythm with a 3/6 murmur. Lung sounds are clear. Abdomen is soft and nontender. examination reveals white bloody urine in the leg bag. Mullen had already been advanced and flushed per nursing prior to my eval. Test Results: CBC was normal white count with 12.3 hemoglobin. Chemistry studies significant only for a BUN of 32. Urinalysis reveals 250 of blood and 25-50 RBCs. 10-25 white cells with 1+ bacteria. CT flank shows marked enlargement of the prostate with indentation at the base of the bladder. The catheter is in the bladder and bladder is empty. There is a small noncalcified nodule in the left lower lobe. Emergency Department Course and Treatment: After seeing the patient I spoke with our ER nurse. She states when she went in to see the patient the Mullen seemed to be advanced out further than it should be. It sounds that the patient does get up and walk a lot and they have not been using the secure calf to his leg. With ambulating the Mullen is getting pulled out somewhat. They can then flushed fluid into the catheter, but because the balloon is dislodged it closes over the end of the tube and does not allow anything to be drawn back. When given report back to [facility] nurse is sure to advise staff at the [facility] they must use the secure cath and make sure there is no stress on the catheter. Treatment Plan: [] Disposition: Discharge Impression: Mullen dislodgment, resolved This note was generated with [employer] software. It may contain incorrect words, spelling, and punctuation that were not noted in review of the chart prior to signing ED Disposition - Plan for ED Patient: Chief Complaint: Mullen C/O Referrals: Emanuel Nelson MD [Primary Care Provider] -
--- NOTE | 2018-08-09 15:16 | ED.DCSUM_ITS ---
- ER Visit Summary Date of Service: 08/09/18 Chief Complaint: Mullen problems History of Present Illness: The patient is a 77 M sent in from [facility] because his Mullen is not draining. Patient was seen in the ER on August 05 for Mullen not draining and then by nurse practitioner for Dr. Lal yesterday. Patient is to continue Cipro. Plan is to have the Mullen removed Sunday morning and then follow-up in the office on Sunday afternoon. Patient was noted to not have the Mullen draining today. [facility] reports that they could flush fluid in but not get any return. states the patient's been sleeping more and she is concerned there is more going on. Physical Examination: Vital signs unremarkable. Patient sleeping comfortably. Head neck examination reveals no trauma. Heart is regular rate and rhythm with a 3/6 murmur. Lung sounds are clear. Abdomen is soft and nontender. examination reveals white bloody urine in the leg bag. Mullen had already been advanced and flushed per nursing prior to my eval. Test Results: CBC was normal white count with 12.3 hemoglobin. Chemistry studies significant only for a BUN of 32. Urinalysis reveals 250 of blood and 25-50 RBCs. 10-25 white cells with 1+ bacteria. CT flank shows marked enlargement of the prostate with indentation at the base of the bladder. The catheter is in the bladder and bladder is empty. There is a small noncalcified nodule in the left lower lobe. Emergency Department Course and Treatment: After seeing the patient I spoke with our ER nurse. She states when she went in to see the patient the Mullen seemed to be advanced out further than it should be. It sounds that the patient does get up and walk a lot and they have not been using the secure calf to his leg. With ambulating the Mullen is getting pulled out somewhat. They can then flushed fluid into the catheter, but because the balloon is dislodged it closes over the end of the tube and does not allow anything to be drawn back. When given report back to [facility] nurse is sure to advise staff at the [facility] they must use the secure cath and make sure there is no stress on the catheter. Treatment Plan: [] Disposition: Discharge Impression: Mullen dislodgment, resolved This note was generated with [employer] software. It may contain incorrect words, spelling, and punctuation that were not noted in review of the chart prior to signing ED Disposition - Plan for ED Patient: Chief Complaint: Mullen C/O Referrals: Emanuel Nelson MD [Primary Care Provider] -
--- NOTE | 2018-08-09 15:16 | ED.DEP ---
ED Disposition - Plan for ED Patient: Disposition: Home or Assisted Living Chief Complaint: Mullen C/O Instructions: ED Catheter Care Mullen Referrals: Saurav Lal MD [STAFF PHYSICIAN] - Keep Teddy appointment
--- NOTE | 2018-08-09 16:16 | ED.RN ---
CALLED REPORT TO JOSE FRANCISCO AT [facility], PT'S NURSE. STRESSED NEED FOR CATH SECURE IN PLACE AND FUNCTIONAL AT TIMES. NURSE VOICED UNDERSTANDING. RELAYED TO NURSE THAT CATH SECURE WAS BROKEN AND VITALE PARTIALLY PULLED OUT UPON PT ARRIVAL. SHE STATES SHE WILL RELAY INSTRUCTIONS TO OTHER STAFF
[2018-08-09 16:19] VITALS: BP 110/61; PULSE 74; RESP 16; O2SAT 96
== END 2018-08-09 16:20 | disposition home or self-care (01) ==
PROVIDERS: Emergency Provider Emergency Medicine; Family Provider Family Medicine; PCP Family Medicine
DX: T83.028A Displacement of other urinary catheter, initial encounter (principal); R31.9 Hematuria, unspecified; N40.1 Benign prostatic hyperplasia with lower urinary tract symptoms; R33.8 Other retention of urine; I10 Essential (primary) hypertension; F32.9 Major depressive disorder, single episode, unspecified; F41.9 Anxiety disorder, unspecified; Z79.899 Other long term (current) drug therapy; Z87.891 Personal history of nicotine dependence
CPT/HCPCS: 74176; 80048; 81001; 85025; 99285

== ENCOUNTER 2018-09-07 21:29 | Inpatient (IN) | payer MEDICARE, MEDICAID, SELFPAY ==
[2018-09-07] VITALS (7 sets, daily range): BP systolic 126–133; BP diastolic 60–74; PULSE 80–92; RESP 12–18; TEMP 36.3–37.2; O2SAT 90–100; BMI 24.3
--- NOTE | 2018-09-07 21:38 | EKG12_ITS ---
Test Reason : FALL Blood Pressure : / mmHG Vent. Rate : 092 BPM Atrial Rate : 092 BPM P-R Int : 176 ms QRS Dur : 088 ms QT Int : 360 ms P-R-T Axes : 045 032 058 degrees QTc Int : 445 ms Normal sinus rhythm Minimal voltage criteria for LVH, may be normal variant Borderline ECG Confirmed by KELLI JANSEN, TALI ([id number]), photographic editor MARTELL WISE ([id number]) on 09/10/2018 4:55:53 PM Referred By: Ryan Yu Confirmed By:TALI PEREIRA MD
--- NOTE | 2018-09-07 21:39 | CT_ITS ---
STUDY: CT CERVICAL SPINE WITHOUT CONTRAST REASON FOR EXAM: Male, 77 years old. Falling injury of the head and neck. RADIATION DOSAGE (If Supplied By Facility): CTDIvol = ( 18.86 ) mGy, DLP = ( 432.12 ) mGycm TECHNIQUE: High resolution transaxial imaging was performed without contrast material. Sagittal and coronal images were reconstructed. Individualized dose optimization techniques were used for this CT. COMPARISON: None FINDINGS: Normal craniovertebral junction. Normal C1, C2 and odontoid alignment. Negative for acute fracture of the odontoid process. Normal cervical lordosis. Normal vertebral bodies and posterior osseous elements. C2-3: Disc narrowing and mild uncovertebral arthrosis. Bilateral facet arthrosis left greater than right. Negative for central stenosis or substantial foraminal narrowing. Mild foraminal narrowing on the left. C3-4: Degenerative disc narrowing and uncovertebral arthrosis greater on the right than the left. Bilateral facet arthrosis. Negative for central stenosis. Moderately severe foraminal narrowing on the right. Mild foraminal narrowing on the left. C4-5: Degenerative disc narrowing and uncovertebral arthrosis. Facet arthrosis primarily on the right. Negative for central stenosis. Severe foraminal narrowing on the right. Mild foraminal narrowing on the left. C5-6: Disc narrowing uncovertebral arthrosis and facet arthrosis on the right. Negative for central stenosis. Moderate foraminal narrowing on the right mild foraminal narrowing on the left. C6-7: Disc narrowing, uncovertebral arthrosis and facet arthrosis primarily on the right. Negative for central stenosis. Negative for substantial foraminal narrowing. C7-T1: Mild degenerative disc and joint changes without central stenosis or substantial foraminal narrowing. Bilateral carotid artery calcifications. CT/Spine Cervical without Contras IMPRESSION: Normal alignment of the cervical spine without acute fracture deformity. Degenerative disc and joint changes as stated above. Bilateral carotid artery calcifications. Electronically Signed: Mavis Peña MD at 23:40 EST , Service support ,
--- NOTE | 2018-09-07 21:39 | CT_ITS ---
STUDY: CT BRAIN WITHOUT CONTRAST REASON FOR EXAM: Male, 77 years old. Fell, injury. RADIATION DOSAGE (If Supplied By Facility): CTDIvol = ( 44.99 ) mGy, DLP = ( 846.73 ) mGycm TECHNIQUE: Transaxial CT imaging of the brain was performed without administration of intravenous contrast material. Individualized dose optimization techniques were used for this CT. COMPARISON: None. FINDINGS: Normal soft tissue structures. Normal calvarium. There is no intracranial mass, hemorrhage, or acute territorial infarct. There is a chronic right basal ganglia lacunar infarct. There is moderate cerebral atrophy with widening of the extra-axial spaces and ventricular dilatation. There are areas of decreased attenuation within the white matter tracts of the supratentorial brain, consistent with microvascular disease changes. Normal basal ganglia and thalami. Normal brainstem. Normal cerebellum. There is no intracranial hemorrhage. There are no findings of an acute ischemic infarction. There is complete opacification of the right maxillary sinus with marked widening of the meatus and soft tissue extending into the nasal airway. There is displacement of the middle meatus. Paranasal sinuses are otherwise clear. CT/Brain/Head without Contrast IMPRESSION: 1. Chronic right basal ganglia lacunar infarct. 2. Microvascular ischemia. Atrophy. 3. 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 ENT evaluation is advised. Electronically Signed: Ruth Barrios MD at 23:01 EST Tel , Service support ,
--- NOTE | 2018-09-07 21:47 | RAD_ITS ---
STUDY: X-RAY CHEST REASON FOR EXAM: Male, 77 years old. Shortness of breath after a fall. TECHNIQUE: Single AP portable view of the chest. COMPARISON: Prior chest radiograph of August 05, 2018 FINDINGS: The lungs are clear and expanded. There is no demonstrated pleural abnormality. Normal size heart. Normal mediastinum and audelia. Normal visualized pulmonary arteries. There is atherosclerotic calcification of the aortic arch with tortuosity. Normal visualized thoracic spine. Normal visualized ribs, clavicles, and shoulders. There is no demonstrated abnormality of the visualized soft tissue structures of the upper abdomen. RAD/Chest 1 View (Portable) IMPRESSION: No acute cardiopulmonary findings or changes. Negative for major consolidation, focal atelectasis, cardiomegaly or pleural effusion. Electronically Signed: Mavis Peña MD at 23:26 EST , Service support ,
[2018-09-07 21:53] LABS: Absolute Lymphocyte Count 0.54 X10^3/ul (0.83-4.51); Absolute Neutrophil Count 8.3 X10^3/uL (2.0-7.7); Basophil# 0.02 X10^3/uL; Basophil% 0.2 % (0-1); Eosinophil# 0.02 X10^3/uL; Eosinophils% 0.2 % (0-5); Hematocrit 38.1 % (40-54); Hemoglobin 11.9 g/dl (13.0-16.5); Lymphocyte # 0.54 X10^3/ul (4.0); Lymphocyte % 5.6 % (19-41); Mean Corp Hgb Conc 31.2 g/gl (32-36); Mean Corpuscular Hgb 29.2 pg (27.0-32.0); Mean Corpuscular Volume 93.4 fL (80-94); Mean Platelet Vol. 8.2 fl (6.2-12.0); Monocyte# 0.65 X10^3/uL; Monocyte% 6.7 % (0-10); Neutrophil # 8.34 X10^3/uL (2.7-7.7); Neutrophil % 86.5 % (47-70); Platelet Count 179 K/mm3 (150-450); RBC Distribution Width CV 13.2 % (11.6-14.6); RBC Distribution Width SD 43.7 fl (35.1-43.9); Red Blood Count 4.08 M/mm3 (4.6-6.2); White Blood Count 9.7 K/mm3 (4.4-11.0)
[2018-09-07 21:54] LABS: Differential Indicated SCAN CRITERIA MET; POSITIVE COUNT NO; POSITIVE DIFFERENTIAL YES; POSITIVE MORPHOLOGY NO
[2018-09-07 21:55] LABS: International Normalized Ratio 1.2
[2018-09-07 21:56] LABS: Partial Thromboplast Time 33.6 Seconds (24.1-36.2)
[2018-09-07 22:03] LABS: Differential Comment SCANNED
--- NOTE | 2018-09-07 22:10 | ED.VISSUMM ---
- ER Visit Summary Date of Service: 09/07/18 Chief Complaint: Fall History of Present Illness: The patient is a 77 M who was brought from his ECF after a fall and then he pulled the table on top of his head. However when he arrived he immediately recognized that the problem was more complex, he was having some difficulty breathing, and had quite a few secretions. He has dementia he is at an ECF apparently he gets sedatives quite often. He has an indwelling Mullen catheter for chronic urinary obstruction. Physical Examination: Patient is c-collar and backboarded, he does not appear in severe distress but is obviously hypoxic on the monitor with quite a few secretions. He has a c-collar but no C-spine tenderness his chest and abdomen are nontender with no signs of trauma he has no lumbar or thoracic spine tenderness no signs of trauma. His lungs however are quite rhonchorous bilaterally with wheezing also. He has no trauma on his lower upper extremities. Emergency Department Course and Treatment: Clinically patient aspirated, I will start antibiotics. I had a long discussion with the he is DNR CC, they do not wish for any mechanical ventilation or central lines. Antibiotics and fluids are okay. Patient will be admitted to the hospital for further management, he does appear ill he may lose his airway but again he is DNR and there is no wish for intubation. He will be treated with Zosyn since he has evidence of a UTI also. I will admit him to the hospital. Impression: Fall Aspiration pneumonia This note was generated with [employer] dictation software. It may contain incorrect words, spelling, and punctuation that were not noted in review of the chart prior to signing ED Disposition - Plan for ED Patient: Referrals: Emanuel Nelson MD [Primary Care Provider] -
[2018-09-07 22:12] LABS: ALB/GLOB Ratio 0.5 RATIO (0.9-2.4); AST(SGOT) 43 U/L (15-37); Alanine Aminotransfer ALT/SGPT 31 U/L (16-61); Albumin, Serum 2.7 g/dL (3.2-5.0); Alkaline Phosphatase 62 U/L (45-117); Anion Gap 7 (5-15); BUN 44 mg/dL (7-18); BUN/Creat Ratio 39.6 RATIO (10-20); Calcium,Total 9.1 mg/dL (8.5-10.1); Chloride 103 mmol/L (98-107); Creatinine, Serum 1.11 mg/dL (0.70-1.30); EST Glomerular Filtration Rate 68 mL/min (>60); Est Glom Filt Rate - Afr Amer 82 mL/min (>60); Estimated Creatinine Clearance 50.45 ml/min; Glucose 126 mg/dL (74-106); Potassium 3.9 mmol/L (3.5-5.1); Protein, Total 7.7 g/dL (6.4-8.2); Sodium Level 138 mmol/L (136-145)
[2018-09-07 22:13] LABS: Lactic Acid 1.5 mmol/L (0.4-2.0)
[2018-09-07 22:14] LABS: Bacteria 0 SEEN /hpf (None Seen); Mucous, Urine 0 SEEN /hpf (<or=2+); Squamous Epithelial Cells - UA 0 SEEN /hpf (0-5)
--- NOTE | 2018-09-07 22:14 | ED.DCSUM_ITS ---
- ER Visit Summary Date of Service: 09/07/18 Chief Complaint: Fall History of Present Illness: The patient is a 77 M who was brought from his ECF after a fall and then he pulled the table on top of his head. However when he arrived he immediately recognized that the problem was more complex, he was having some difficulty breathing, and had quite a few secretions. He has dementia he is at an ECF apparently he gets sedatives quite often. He has an indwelling Mullen catheter for chronic urinary obstruction. Physical Examination: Patient is c-collar and backboarded, he does not appear in severe distress but is obviously hypoxic on the monitor with quite a few secretions. He has a c- collar but no C-spine tenderness his chest and abdomen are nontender with no signs of trauma he has no lumbar or thoracic spine tenderness no signs of trauma. His lungs however are quite rhonchorous bilaterally with wheezing also. He has no trauma on his lower upper extremities. Emergency Department Course and Treatment: Clinically patient aspirated, I will start antibiotics. I had a long discussion with the he is DNR CC, they do not wish for any mechanical ventilation or central lines. Antibiotics and fluids are okay. Patient will be admitted to the hospital for further management, he does appear ill he may lose his airway but again he is DNR and there is no wish for intubation. He will be treated with Zosyn since he has evidence of a UTI also. I will admit him to the hospital. Impression: Fall Aspiration pneumonia This note was generated with [employer] dictation software. It may contain incorrect words, spelling, and punctuation that were not noted in review of the chart prior to signing ED Disposition - Plan for ED Patient: Referrals: Emanuel Nelson MD [Primary Care Provider] -
[2018-09-07 22:16] LABS: Color, Urine Yellow (Yellow); Glucose, Dipstick Normal (Normal); Ketone-Dipstick 15 mg/dl (Negative); Leukocyte Esterase-Dipstick 500 /ul (Negative); Nitrite-Dipstick Negative (Negative); Occult Blood-Urine 150 /ul (Negative); Protein-Dipstick 30 mg/dl (Negative); Urine Bilirubin Dipstick Negative (Negative); Urine Clarity Sl. Cloudy (Clear); Urine Urobilinogen 1 mg/dl (Normal)
--- NOTE | 2018-09-07 22:18 | ED.RN ---
PT ARRIVED TO ED WITH URINARY CATHETER IN PLACE FROM ECF FOR URINARY RETENTION. PER ASSISTED CATHETER WAS DUE TO BE CHANGED LAST SUNDAY BUT WAS NOT COMPLETED. VERBAL ORDERS FROM DR. WOLFF TO REPLACE URINARY CATHETER. PT TOLERATED WELL.
[2018-09-07 22:25] LABS: Red Blood Cells-Urine 0-5 SEEN /hpf (0-5); White Blood Cells 5-10 SEEN /hpf (0-5)
--- NOTE | 2018-09-07 23:32 | ED.RN ---
ANNY KING FROM [facility] CALLED FOR AN UPDATE ON THE PATIENT. I TOLD HER THAT HE IS BEING ADMITTED FOR POSSIBLE ASPIRATION PNEUMONIA.
--- NOTE | 2018-09-07 23:45 | HP.PCM_ITS ---
Problem List (1) Aspiration pneumonia Status: Acute (2) UTI (urinary tract infection) Status: Acute History of Present Illness Date of Admission: 09/07/18 Chief Complaint: FALL The patient is a 77 year old M with a significant history of hypertension; BPH with an indwelling catheter; and dementia who lives at a locked psychiatric unit at a residential ([facility]) presented because of a fall. Patient was found on the floor in a manual room with a table on him. His reported that patient's has been pacing and typically moves a table. Also his reported that after an indwelling catheter was put in in June 2018 patient have had multiple bouts of UTI. The catheter was supposed to be in place for 4 weeks and then Command A. fib by 2018. Because patient had a temperature of 102 and a cloudy urine two days ago he was diagnosed with UTI and was started on Macrobid. At emergency department patient was found gurgling and also was found to have abnormal urinalysis for which Zosyn was started for probable aspiration pneumonia and for his UTI. Emergency department doctor reported that on room air patient oxygen saturation was 84-85% and with nasal cannula oxygen his oxygen saturation improved to 95%. Reportedly because of agitation patient receives sedative medication at the psych unit. Because patient fell CT brain and neck was obtained but he did not show any acute changes. Chest x-ray was unremarkable. Past Medical History Medical History: Medical History (Last Updated 09/07/18 @ 23:57 by Ryan Yu MD) Dementia F03.90 HTN (hypertension) I10 Allergies Penicillins Allergy (Verified 09/07/18 21:36) Unknown Home Medications: Ambulatory Orders Medication Instructions Recorded Acetaminophen 1 - 2 tab PO Q4H PRN 08/05/18 Bisacodyl 10 mg RC PRN PRN 08/05/18 Divalproex Sodium [Depakote] 125 mg PO BID 08/05/18 Hydrocortisone Acetate Cream 1 applic RECTAL DAILY PRN PRN 08/05/18 [Anusol Hc] Lisinopril 2.5 mg PO DAILY 08/05/18 Lorazepam [Ativan] 0.5 mg PO Q6H PRN 08/05/18 Mag Hydrox/Aluminum Hyd/Simeth 355 ml PO Q4H PRN 08/05/18 [Antacid Suspension] Risperidone [Risperdal] 0.5 mg PO QHS 08/05/18 Tamsulosin HCl [Flomax] 0.8 mg PO DAILY 08/05/18 traZODone [Desyrel] 100 mg PO QHS 08/05/18 Finasteride [Proscar] 5 mg PO DAILY 09/07/18 Nitrofurantoin Macrocrystals 100 mg PO Q12 09/07/18 [Macrobid] Sennosides/Docusate Sodium 1 each PO DINNER 09/08/18 [Senna-Docusate Sodium Tablet] Surgical History: - - Surgical excision of the face for a consult with reconstruction with skin graft Smoking Status: Former smoker Alcohol: None - *Family History Maternal History Items: Dementia Paternal History Items: Heart Disease - Pertinent medical history of heart disease also one brother from a complication of aortic valve replacement. Review of Systems Unable to obtain accurate/complete ROS d/t: Dementia VTE Information - Inpt Only VTE Present on Admission: No VTE Mechan Device Prophylaxis: None VTE Pharm Prophylaxis ordered?: Yes Patient Problems: Active and Suspected Problems (Last Updated 09/07/18 @ 23:57 by Ryan Yu MD) Aspiration pneumonia (Acute) UTI (urinary tract infection) (Acute) - Physical Exam General: Confused, Lethargic, - - Gurgling HEENT: Atraumatic, Normocephalic Oral: Dry Mucosa Neck: - - Was in c-collar at the time of examination Lungs: Diminished Cardiovascular: Regular rate, No murmurs Abdomen: Bowel Sounds Present, Soft, Non Tender Extremities: No edema, Capillary Refill Less than 3 Seconds Skin: No rashes, No breakdown Musculoskeletal: No Tenderness to Palpation of Joints or Extremities Neurological: - - Confused and not following commands. Psych/Mental Status: - - Lethargic Vital Signs Temp Pulse Resp BP Pulse Ox 98.9 F 83 13 126/60 H 100 09/07/18 21:41 09/07/18 22:59 09/07/18 22:57 09/07/18 22:57 09/07/18 22:57 Oxygen Flow Rate (L/min) 2 Oxygen Delivery Method Room Air Weight: 70.3 kg Body Mass Index (BMI) 24.3 Laboratory Tests Past 24 Hrs 09/07/18 09/07/18 09/07/18 21:40 21:40 21:40 WBC 9.7 RBC 4.08 L Hgb 11.9 L Hct 38.1 L MCV 93.4 MCH 29.2 MCHC 31.2 L RDW 13.2 RDW Differential 43.7 Plt Count 179 MPV 8.2 Immature Gran % (Auto) 0.800 Neut % (Auto) 86.5 H Lymph % (Auto) 5.6 L [place] % (Auto) 6.7 Eos % (Auto) 0.2 Baso % (Auto) 0.2 Absolute Neuts (auto) 8.3 H Absolute Lymphs (auto) 0.54 L Total Counted Not Reportable Differential Comment SCANNED PT 15.0 H INR 1.2 APTT 33.6 Sodium 138 Potassium 3.9 Chloride 103 Carbon Dioxide 28.0 Anion Gap 7 BUN 44 H Creatinine 1.11 Estim Creat Clear Calc 50.45 Est GFR (MDRD) Af Amer 82 Est GFR (MDRD) Non-Af 68 BUN/Creatinine Ratio 39.6 H Glucose 126 H Lactic Acid Calcium 9.1 Total Bilirubin 0.70 AST 43 H ALT 31 Alkaline Phosphatase 62 Total Protein 7.7 Albumin 2.7 L Globulin 5.0 H Albumin/Globulin Ratio 0.5 L Urine Color Urine Clarity Urine pH Ur Specific Becker Urine Protein Urine Glucose (UA) Urine Ketones Urine Occult Blood Urine Nitrite Urine Bilirubin Urine Urobilinogen Ur Leukocyte Esterase Urine RBC Urine WBC Ur Squamous Epith Cells Urine Bacteria Urine Mucus 09/07/18 09/07/18 21:40 22:10 WBC RBC Hgb Hct MCV MCH MCHC RDW RDW Differential Plt Count MPV Immature Gran % (Auto) Neut % (Auto) Lymph % (Auto) [place] % (Auto) Eos % (Auto) Baso % (Auto) Absolute Neuts (auto) Absolute Lymphs (auto) Total Counted Differential Comment PT INR APTT Sodium Potassium Chloride Carbon Dioxide Anion Gap BUN Creatinine Estim Creat Clear Calc Est GFR (MDRD) Af Amer Est GFR (MDRD) Non-Af BUN/Creatinine Ratio Glucose Lactic Acid 1.5 Calcium Total Bilirubin AST ALT Alkaline Phosphatase Total Protein Albumin Globulin Albumin/Globulin Ratio Urine Color Yellow Urine Clarity Sl. Cloudy Urine pH 6.0 Ur Specific Becker 1.010 Urine Protein 30 H Urine Glucose (UA) Normal Urine Ketones 15 H Urine Occult Blood 150 H Urine Nitrite Negative Urine Bilirubin Negative Urine Urobilinogen 1 H Ur Leukocyte Esterase 500 H Urine RBC 0-5 SEEN Urine WBC 5-10 SEEN Ur Squamous Epith Cells 0 SEEN Urine Bacteria 0 SEEN Urine Mucus 0 SEEN Assessment/Plan All Active Problems (Last Updated 09/07/18 @ 23:57 by Ryan Yu MD) Aspiration pneumonia (Acute) UTI (urinary tract infection) (Acute) The patient is a 77 year old M with a significant history of hypertension; BPH with an indwelling catheter; and dementia who lives at a locked psychiatric unit at a residential presented because of a fall and was found to be gurgling and also had abnormal urinalysis in the setting of indwelling cardiac and was on outpatient antibiotics. Probable aspiration pneumonia Patient is on risperidone and trazodone caused him to be sedated. Patient noted to be gurgling We will continue Zosyn for aspiration pneumonia. Blood cultures are pending Sputum cultures ordered Legionella antigen, Streptococcus pneumonia antigen and MRSA of the nares. We will hold p.o. medication until speech eval. Patient is on Depakote but his reported that his behavior issues no for seizures. Trend CBC Acute cystitis secondary to probable indwelling catheter Review of labs shows normal lactic acid with abnormal urinalysis. Was on home Macrobid. We will continue patient on Zosyn started for the emergency department. Urine cultures and blood cultures are pending. Acute dehydration Patient noted to have elevated BUN and dry mucous membrane. His BUN was 44. His BUN about a month ago was 32. Gentle fluid hydration. Trend BMP Fall Likely mechanical superimposed with sedation CT brain and neck unremarkable. Okay to remove cervical collar. Dementia We will hold all p.o. medication at this time. If patient becomes agitated consider IV Haldol. Hypertension On admission his blood pressure was within goal. Trend blood pressures. DVT prophylaxis Subcutaneous heparin. Code Visit Inpatient E&M: 23068 Init Hosp L3
[2018-09-08] VITALS (9 sets, daily range): BP systolic 112–123; BP diastolic 51–68; PULSE 62–94; RESP 16–18; TEMP 36.8–37.4; O2SAT 94–99
[2018-09-08] MEDS: Ipratropium/Albuterol Sulfate 3 ML AMPUL.NEB INHALATION ×4 (00:32→19:00)
--- NOTE | 2018-09-08 00:47 | CPS ---
Pt. unable to follow commands. Instruction and information on aerosol tx discussed with significant other. Understands benefits and information on tx. Aerosol tx given via blow-by to reduce agitation of pt. and for exp wheeze. Improved B.S. after treatment via this method.
[2018-09-08] MEDS: 0.9% Normal Saline 1,000 ML 1000 ML IV (01:18)
[2018-09-08 05:53] LABS: Probe Check PASS
[2018-09-08 05:54] LABS: M R Staph aureus DNA By PCR POSITIVE (Negative)
[2018-09-08] MEDS: Heparin Injection (Vial) 5,000 UNIT/ML VIAL 5000 UNIT SC ×3 (06:26→21:57)
--- NOTE | 2018-09-08 06:32 | NURSING ---
Pharmacist Zoe aware pt has PCN allergy/adverse reaction and ordered Zosyn, states ok to give as pt has had before and tolerated well.
[2018-09-08 07:21] LABS: Anion Gap 10 (5-15); BUN 36 mg/dL (7-18); BUN/Creat Ratio 48.3 RATIO (10-20); Calcium,Total 8.6 mg/dL (8.5-10.1); Chloride 111 mmol/L (98-107); Creatinine, Serum 0.75 mg/dL (0.70-1.30); EST Glomerular Filtration Rate 107 mL/min (>60); Est Glom Filt Rate - Afr Amer 130 mL/min (>60); Glucose 89 mg/dL (74-106); Potassium 3.9 mmol/L (3.5-5.1); Sodium Level 144 mmol/L (136-145)
[2018-09-08 10:16] LABS: Absolute Neutrophil Count 6.4 X10^3/uL (2.0-7.7); Basophil% 0.2 % (0-1); Eosinophils% 3.5 % (0-5); Hematocrit 35.1 % (40-54); Hemoglobin 11.1 g/dl (13.0-16.5); Lymphocyte % 7.8 % (19-41); Mean Corp Hgb Conc 31.6 g/gl (32-36); Mean Corpuscular Hgb 29.1 pg (27.0-32.0); Mean Corpuscular Volume 92.1 fL (80-94); Mean Platelet Vol. 8.6 fl (6.2-12.0); Monocyte% 8.2 % (0-10); Neutrophil # 6.39 X10^3/uL (2.7-7.7); Neutrophil % 79.4 % (47-70); POSITIVE COUNT NO; POSITIVE DIFFERENTIAL NO; POSITIVE MORPHOLOGY NO; Platelet Count 148 K/mm3 (150-450); RBC Distribution Width CV 13.7 % (11.6-14.6); RBC Distribution Width SD 45.8 fl (35.1-43.9); Red Blood Count 3.81 M/mm3 (4.6-6.2); White Blood Count 7.9 K/mm3 (4.4-11.0)
[2018-09-08 10:17] LABS: Absolute Lymphocyte Count 0.63 X10^3/ul (0.83-4.51); Basophil# 0.02 X10^3/uL; Eosinophil# 0.28 X10^3/uL; Lymphocyte # 0.63 X10^3/ul (4.0); Monocyte# 0.66 X10^3/uL
--- NOTE | 2018-09-08 10:55 | PCM.PN.HOSP ---
Patient Problems: Active and Suspected Problems (Last Updated 09/07/18 @ 23:57 by Ryan Yu MD) Aspiration pneumonia (Acute) UTI (urinary tract infection) (Acute) Subjective: Patient was seen and examined in the company of the . He was sleeping. Denied any new complains. Appears confused. Alert oriented x1. Off oxygen Vitals/I&O's: Vital Signs Temp Pulse Resp BP Pulse Ox 99.0 F 83 18 119/59 L 94 09/08/18 10:07 09/08/18 10:07 09/08/18 10:07 09/08/18 10:07 09/08/18 10:07 Oxygen Flow Rate (L/min) 3 Oxygen Delivery Method Room Air Weight: 61.377 kg Body Mass Index (BMI) 20.0 Intake and Output for Last 24 Hours 09/06/18 09/07/18 09/08/18 23:59 23:59 23:59 Intake Total 962 / 962 Output Total 750 / 750 Balance 212 / 212 General: Alert, Cooperative, Confused - alert, oriented x 1 HEENT: Atraumatic, PERRLA, EOMI, Normocephalic Oral: Dry Mucosa Neck: Supple Lungs: Clear to auscultation, Normal air movement Cardiovascular: Regular rate, Regular Rhythm, Normal S1, Normal S2, No murmurs Abdomen: Bowel Sounds Present, Soft, Non Tender, Non-Distended, No Hepato-splenomegaly Extremities: No edema Skin: No rashes, No breakdown Musculoskeletal: No Tenderness to Palpation of Joints or Extremities Lymphatic: No Cervical, Supraclavicular, or Inguinal Adenopathy Neurological: Cranial nerves II-XII grossly intact Psych/Mental Status: Normal Affect, Appropriate Microbiology Past 72 Hours 09/07/18 22:10 Urine Catheter - Catheter Streptococcus pneumoniae Antigen (M - Final 09/07/18 22:10 Urine Catheter - Catheter Legionella Antigen - Final Laboratory Results 09/07/18 21:40: WBC 9.7, RBC 4.08 L, Hgb 11.9 L, Hct 38.1 L, MCV 93.4, MCH 29.2, MCHC 31.2 L, RDW 13.2, RDW Differential 43.7, Plt Count 179, MPV 8.2, Immature Gran % (Auto) 0.800, Neut % (Auto) 86.5 H, Lymph % (Auto) 5.6 L, [place] % (Auto) 6.7, Eos % (Auto) 0.2, Baso % (Auto) 0.2, Absolute Neuts (auto) 8.3 H, Absolute Lymphs (auto) 0.54 L, Total Counted Not Reportable, Differential Comment SCANNED 09/07/18 21:40: PT 15.0 H, INR 1.2, APTT 33.6 09/07/18 21:40: Sodium 138, Potassium 3.9, Chloride 103, Carbon Dioxide 28.0, Anion Gap 7, BUN 44 H, Creatinine 1.11, Estim Creat Clear Calc 50.45, Est GFR (MDRD) Af Amer 82, Est GFR (MDRD) Non-Af 68, BUN/Creatinine Ratio 39.6 H, Glucose 126 H, Calcium 9.1, Total Bilirubin 0.70, AST 43 H, ALT 31, Alkaline Phosphatase 62, Total Protein 7.7, Albumin 2.7 L, Globulin 5.0 H, Albumin/Globulin Ratio 0.5 L 09/07/18 21:40: Lactic Acid 1.5 09/07/18 22:10: Urine Color Yellow, Urine Clarity Sl. Cloudy, Urine pH 6.0, Ur Specific [place] 1.010, Urine Protein 30 H, Urine Glucose (UA) Normal, Urine Ketones 15 H, Urine Occult Blood 150 H, Urine Nitrite Negative, Urine Bilirubin Negative, Urine Urobilinogen 1 H, Ur Leukocyte Esterase 500 H, Urine RBC 0-5 SEEN, Urine WBC 5-10 SEEN, Ur Squamous Epith Cells 0 SEEN, Urine Bacteria 0 SEEN, Urine Mucus 0 SEEN 09/08/18 01:30: MRSA (PCR) POSITIVE H 09/08/18 05:35: WBC 7.9, RBC 3.81 L, Hgb 11.1 L, Hct 35.1 L, MCV 92.1, MCH 29.1, MCHC 31.6 L, RDW 13.7, RDW Differential 45.8 H, Plt Count 148 L, MPV 8.6, Immature Gran % (Auto) 0.900, Neut % (Auto) 79.4 H, Lymph % (Auto) 7.8 L, [place] % (Auto) 8.2, Eos % (Auto) 3.5, Baso % (Auto) 0.2, Absolute Neuts (auto) 6.4, Absolute Lymphs (auto) 0.63 L, Total Counted Not Reportable 09/08/18 05:35: Sodium 144, Potassium 3.9, Chloride 111 H, Carbon Dioxide 23.0, Anion Gap 10, BUN 36 H, Creatinine 0.75, Estim Creat Clear Calc 52.00, Est GFR (MDRD) Af Amer 130, Est GFR (MDRD) Non-Af 107, BUN/Creatinine Ratio 48.3 H, Glucose 89, Calcium 8.6 Current Medications Acetaminophen (Tylenol) 650 mg RECTAL Q6H PRN PRN PRN Reason: FEVER OF 100.4 OR HEADACHE Albuterol Sulfate (Ventolin Aerosols) 2.5 mg INHALATION Q2H PRN PRN PRN Reason: SHORTNESS OF BREATH Albuterol/Ipratropium (Duoneb) 3 ml INHALATION Q6H.RT [facility] Last Admin: 09/08/18 07:30 Dose: 3 ml Bisacodyl (Dulcolax) 5 mg PO DAILY PRN PRN PRN Reason: Constipation Heparin Sodium (Porcine) (Heparin Na) 5,000 unit SC Q8 [facility] Last Admin: 09/08/18 06:26 Dose: 5,000 unit Piperacillin Sod/Tazobactam (Sod 3.375 gm/ Sodium Chloride) 50 mls @ 12.5 mls/hr IV Q8 [facility] Last Admin: 09/08/18 06:21 Dose: 12.5 mls/hr Sodium Chloride () 250 mls @ 15 mls/hr IV .[id number] PRN PRN Reason: SALINE FLUSH Vancomycin IV Pharmacy to Dose (1,500 ea/ Sodium Chloride) 500 mls @ 250 mls/hr IV PRN PRN; Protocol PRN Reason: PHARMACY TO DOSE Vancomycin HCl 1,500 mg/ (Sodium Chloride) 530 mls @ 250 mls/hr IV X1 ONE Stop: 09/08/18 12:07 Last Admin: 09/08/18 10:46 Dose: 250 mls/hr Magnesium Hydroxide (Milk Of Magnesia) 30 ml PO DAILY PRN PRN PRN Reason: Constipation Nutritional Formula (Lactose Free) (Ensure Enlive) 120 ml PO 4X/DAY [facility] Last Admin: 09/08/18 10:09 Dose: Not Given Ondansetron HCl (Zofran) 4 mg IV Q8H PRN PRN PRN Reason: NAUSEA Sodium Chloride () 5 - 15 ml IV UD PRN PRN Reason: SALINE FLUSH Medical Necessity - Tobacco Use Smoking Status: Former smoker Assessment/Plan All Active Problems (Last Updated 09/07/18 @ 23:57 by Ryan Yu MD) Aspiration pneumonia (Acute) UTI (urinary tract infection) (Acute) 77-year-old male with past medical history of hypertension, BPH with an indwelling Mullen catheter, dementia, resident in the locked psychiatric unit at the care home, who comes in after a fall. Patient had recently been treated for UTI and is currently being admitted for hypoxia and abnormal blood work. 1. Acute metabolic encephalopathy in a patient with baseline dementia with behavioral disturbances, patient appears to be at his baseline now On treatment for UTI, continue to monitor 2. Acute hypoxic respiratory failure, resolved, patient was saturating 84-85% on room air on admission, secondary to aspiration pneumonia, appears to have improved remarkably, not on oxygen at the moment, continue with breathing treatments as needed 3. Possible aspiration pneumonia, chest x-ray is negative for any infiltrates, repeat chest x-ray in a.m., continue on IV Zosyn 4. Acute complicated UTI, history of long-standing Mullen catheter, has recently been treated with Macrobid, UA on admission was slightly cloudy, nitrite negative, leukocyte esterase 500, WBC 5-10 Unclear how much of this is from colonization with his Mullen catheter Urine cultures are pending, blood cultures are pending, continue to monitor 5. BPH status post Mullen catheter, on Proscar and Flomax, continue the same 6. Dementia improved with behavioral disturbance, resident in a dementia locked unit, continue on Depakote, Risperdal, trazodone Patient's home med list shows Ativan 0.5mg every 6 hours but review of care home records shows that he was being given only at night Will decrease Ativan to 0.25 nightly, will need to be weaned off over the next couple of days 7. ANNE on CKD stage III, likely secondary to dehydration, back to baseline, will continue to trend BMP 8. DVT PPx- Heparin SC Code Visit Inpatient E&M: 32585 Subs Hosp L2
--- NOTE | 2018-09-08 11:41 | PCM.RX.CS ---
Consult Pharmacy has been consulted to manage selected antiobiotic: Vancomycin Type of Consult: New start Suspected Infection: Pneumonia Prior Doses of Antibiotics Received/Current Regimen: Patient received 1500mg iv (~24mg/kg) x 1 on 09.08.18 @1046. Labs: Sodium 144 mmol/L (136-145) 09/08/18 05:35 Potassium 3.9 mmol/L (3.5-5.1) 09/08/18 05:35 Chloride 111 mmol/L (98-107) H 09/08/18 05:35 Carbon Dioxide 23.0 mmol/L (21.0-32.0) 09/08/18 05:35 Anion Gap 10 (5-15) 09/08/18 05:35 BUN 36 mg/dL (7-18) H 09/08/18 05:35 Creatinine 0.75 mg/dL (0.70-1.30) 09/08/18 05:35 Est GFR (MDRD) Af Amer 130 mL/min (>60) 09/08/18 05:35 Est GFR (MDRD) Non-Af 107 mL/min (>60) 09/08/18 05:35 BUN/Creatinine Ratio 48.3 RATIO (10-20) H 09/08/18 05:35 Glucose 89 mg/dL (74-106) 09/08/18 05:35 Microbiology: Microbiology 09/07/18 22:10 Urine Catheter - Catheter Streptococcus pneumoniae Antigen (M - Final 09/07/18 22:10 Urine Catheter - Catheter Legionella Antigen - Final Weight used for dosin.4 kg Estimated Creatinine Clearance: 52 ml/min Goal Trough: 15-20 mcg/mL Pharmacy Plan for Drug Dosing: Will begin 1250mg iv q24h starting 24hrs after 1500mg dose. Trough level ordered for 09.10.18 before 3rd dose with goal of 15-20mcg/ml. Pharmacy Service will continue to monitor and adjust dosing as required. Follow-Up Labs: Trough Vancomycin - 2..19 @1030 before 1100 dose
[2018-09-08] MEDS: Finasteride 5 MG Tablet PO (14:25)
[2018-09-08] MEDS: Lisinopril 2.5 MG Tablet PO (14:25)
[2018-09-08] MEDS: Tamsulosin HCl 0.4 MG Capsule 0.8 MG PO (19:06)
[2018-09-08] MEDS: RisperiDONE 0.5 MG Tablet PO (21:57)
[2018-09-08] MEDS: LORazepam 0.5 MG Tablet 0.25 MG PO (21:58)
[2018-09-08] MEDS: traZODone 100 MG Tablet PO (21:58)
[2018-09-09 03:39] VITALS: BP 128/66; PULSE 84; RESP 18; TEMP 36.5; O2SAT 96
[2018-09-09] MEDS: Acetaminophen 325 MG Tablet 650 MG PO (04:41)
[2018-09-09] MEDS: Heparin Injection (Vial) 5,000 UNIT/ML VIAL 5000 UNIT SC ×3 (05:42→22:00)
--- NOTE | 2018-09-09 05:55 | EKG12_ITS ---
Test Reason : AM EKG Blood Pressure : / mmHG Vent. Rate : 056 BPM Atrial Rate : 056 BPM P-R Int : 190 ms QRS Dur : 090 ms QT Int : 410 ms P-R-T Axes : 057 030 045 degrees QTc Int : 395 ms Sinus bradycardia with sinus arrhythmia Otherwise normal ECG Confirmed by AZRA JANSEN, DYLAN ([id number]), general expeditor MARTELL WISE ([id number] on 09/11/2018 10:41:15 AM Referred By: Ryan Yu Confirmed By:DYLAN OQUENDO MD
--- NOTE | 2018-09-09 05:55 | RAD_ITS ---
STUDY: X-RAY CHEST REASON FOR EXAM: Male, 77 years old. Dyspnea and shortness of breath. TECHNIQUE: Single AP portable view of the chest. COMPARISON: Comparison is made with prior study dated September 07, 2018. FINDINGS: Mild increased markings at the lung bases suggest bibasilar atelectasis and/or early infiltrates more prominent on the right side. There is no demonstrated pleural abnormality. Normal size heart. Normal mediastinum and audelia. Normal visualized pulmonary arteries. There is atherosclerotic calcification of the aortic arch with tortuosity. Normal visualized thoracic spine. Normal visualized ribs, clavicles, and shoulders. There is no demonstrated abnormality of the visualized soft tissue structures of the upper abdomen. RAD/Chest 1 View (Portable) IMPRESSION: Increased markings at the lung bases suggesting bibasilar atelectasis and/or early infiltrates worse on the right base. Electronically Signed: J Carlos Oliva MD at 11:27 EST , Service support ,
[2018-09-09 07:05] VITALS: PULSE 77; RESP 16; O2SAT 94
[2018-09-09] MEDS: Ipratropium/Albuterol Sulfate 3 ML AMPUL.NEB INHALATION (07:05)
--- NOTE | 2018-09-09 07:05 | CPS ---
DUONEB AEROSOL GIVEN PRIOR TO MED BEING DC'D, PT FRANDY FAIR
[2018-09-09] MEDS: Lisinopril 2.5 MG Tablet PO (08:02)
[2018-09-09] MEDS: Haloperidol Lactate 5 MG/ML Vial 1 MG IV (08:02)
[2018-09-09] MEDS: Finasteride 5 MG Tablet PO (08:02)
[2018-09-09] MEDS: 0.9% NaCl Peripheral Flush Adult/Peds IV (08:03)
[2018-09-09 08:05] VITALS: BP 119/54; PULSE 73; RESP 18; TEMP 36.9; O2SAT 98
[2018-09-09] MEDS: Mupirocin Ointment 22gm Tube 1 APPLIC NASAL ×2 (08:53→21:49)
--- NOTE | 2018-09-09 09:21 | CASEMGMT ---
Addendum entered by Liz Do 09/09/18 10:17: MARITZA received call from pt's Maribel confirming that pt is from dementia unit at [facility] and the plan is for pt to return there at discharge. Original Note: Addendum entered by Liz Do 09/09/18 10:07: MARITZA attempted to call pt's (both home and cell phone numbers) but no answer. MARITZA left message for Maribel to give this worker a call to confirm discharge plans. Original Note: Social Work Note Pt is listed as being in dementia unit at [facility]. MARITZA placed a call to Livier at [facility] who confirms pt is from dementia unit at [facility]. Livier states pt can return when medically cleared. MARITZA faxed updated clinicals to [facility]. Plan: Return to [facility] dementia unit once medically cleared Liz Do DIRECTOR OF REHABILITATION, [employer]
--- NOTE | 2018-09-09 11:13 | PCM.PN.HOSP ---
Patient Problems: Active and Suspected Problems (Last Updated 09/07/18 @ 23:57 by Ryan Yu MD) Aspiration pneumonia (Acute) UTI (urinary tract infection) (Acute) Subjective: Patient seen and examined. He was alert but quite confused and answered some questions and ignored the others. Unable to do comprehensive review of systems o/a of confusion. Vitals/I&O's: Vital Signs Temp Pulse Resp BP Pulse Ox 98.4 F 73 18 119/54 L 98 09/09/18 08:05 09/09/18 08:05 09/09/18 08:05 09/09/18 08:05 09/09/18 08:05 Oxygen Flow Rate (L/min) 3 Oxygen Delivery Method Room Air Weight: 135 lb 5.01 oz Body Mass Index (BMI) 20.0 Intake and Output for Last 24 Hours 09/07/18 09/08/18 09/09/18 23:59 23:59 23:59 Intake Total 1944 / 1944 1522 / 1522 Output Total 2049 / 2049 1100 / 1100 Balance -106 / -106 422 / 422 General: Alert, Cooperative, Confused HEENT: Atraumatic, PERRLA, EOMI, Normocephalic Oral: Dry Mucosa Neck: Supple, No JVD, Negative Carotid Bruits Lungs: Clear to auscultation, Normal air movement, No rhonchi, No wheeze, No rales Cardiovascular: Regular rate, Regular Rhythm, Normal S1, Normal S2, No murmurs Abdomen: Bowel Sounds Present, Soft, Non Tender, Non-Distended, No Hepato-splenomegaly Extremities: No clubbing, No cyanosis, No edema, Capillary Refill Less than 3 Seconds Skin: No rashes, No breakdown Musculoskeletal: No Tenderness to Palpation of Joints or Extremities Lymphatic: No Cervical, Supraclavicular, or Inguinal Adenopathy Neurological: Cranial nerves II-XII grossly intact, Neuro grossly intact Psych/Mental Status: Normal Affect, Appropriate Microbiology Past 72 Hours 09/07/18 21:55 Blood Culture (Wb) - Anticubital Right Blood Culture - Preliminary Staphylococcus aureus 09/07/18 21:50 Blood Culture (Wb) - Anticubital Left Blood Culture - Preliminary Staphylococcus aureus 09/07/18 22:10 Urine Catheter - Mullen Urine Culture - Final Staphylococcus aureus Mixed Gram Positive Organisms 09/07/18 22:10 Urine Catheter - Catheter Streptococcus pneumoniae Antigen (M - Final 09/07/18 22:10 Urine Catheter - Catheter Legionella Antigen - Final Diagnostic Data Brain CT 09/07/18 21:39 IMPRESSION: 1. Chronic right basal ganglia lacunar infarct. 2. Microvascular ischemia. Atrophy. 3. 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 ENT evaluation is advised. Electronically Signed: Ruth Barrios MD at 23:01 EST Tel , Service support , Cervical Spine CT 09/07/18 21:39 IMPRESSION: Normal alignment of the cervical spine without acute fracture deformity. Degenerative disc and joint changes as stated above. Bilateral carotid artery calcifications. Electronically Signed: Mavis Peña MD at 23:40 EST , Service support , Current Medications Acetaminophen (Tylenol) 650 mg PO Q6H PRN PRN PRN Reason: FEVER OF 100.4 OR HEADACHE Last Admin: 09/09/18 04:41 Dose: 650 mg Albuterol Sulfate (Ventolin Aerosols) 2.5 mg INHALATION Q2H PRN PRN PRN Reason: SHORTNESS OF BREATH Bisacodyl (Dulcolax) 5 mg PO DAILY PRN PRN PRN Reason: Constipation Finasteride (Proscar) 5 mg PO DAILY [facility] Last Admin: 09/09/18 08:02 Dose: 5 mg Haloperidol Lactate (Haldol) 1 mg IV Q6H PRN PRN PRN Reason: AGITATION Last Admin: 09/09/18 08:02 Dose: 1 mg Heparin Sodium (Porcine) (Heparin Na) 5,000 unit SC Q8 [facility] Last Admin: 09/09/18 05:42 Dose: 5,000 unit Piperacillin Sod/Tazobactam (Sod 3.375 gm/ Sodium Chloride) 50 mls @ 12.5 mls/hr IV Q8 [facility] Last Admin: 09/09/18 05:40 Dose: 12.5 mls/hr Sodium Chloride () 250 mls @ 15 mls/hr IV .[id number] PRN PRN Reason: SALINE FLUSH Vancomycin IV Pharmacy to Dose (1,500 ea/ Sodium Chloride) 500 mls @ 250 mls/hr IV PRN PRN; Protocol PRN Reason: PHARMACY TO DOSE Vancomycin HCl 1,250 mg/ (Sodium Chloride) 275 mls @ 183 mls/hr IV Q24H [facility] Lisinopril (Zestril) 2.5 mg PO DAILY [facility] Last Admin: 09/09/18 08:02 Dose: 2.5 mg Lorazepam (Ativan) 0.25 mg PO QHS [facility] Last Admin: 09/08/18 21:58 Dose: 0.25 mg Magnesium Hydroxide (Milk Of Magnesia) 30 ml PO DAILY PRN PRN PRN Reason: Constipation Mupirocin (Bactroban) 1 applic NASAL BID [facility]; Protocol Stop: 09/13/18 22:01 Last Admin: 09/09/18 08:53 Dose: 1 applicatio Nutritional Formula (Lactose Free) (Ensure Enlive) 120 ml PO 4X/DAY [facility] Last Admin: 09/09/18 08:58 Dose: 120 ml Ondansetron HCl (Zofran) 4 mg IV Q8H PRN PRN PRN Reason: NAUSEA Risperidone (Risperdal) 0.5 mg PO QHS [facility] Last Admin: 09/08/18 21:57 Dose: 0.5 mg Sodium Chloride () 5 - 15 ml IV UD PRN PRN Reason: SALINE FLUSH Last Admin: 09/09/18 08:03 Dose: 10 ml Tamsulosin HCl (Flomax) 0.8 mg PO DAILY@1730 [facility] Last Admin: 09/08/18 19:06 Dose: 0.8 mg Trazodone HCl (Desyrel) 100 mg PO QHS [facility] Last Admin: 09/08/18 21:58 Dose: 100 mg Valproic Acid (Depakene) 125 mg PO BID [facility] Last Admin: 09/09/18 08:01 Dose: 125 mg Medical Necessity - Tobacco Use Smoking Status: Former smoker Assessment/Plan All Active Problems (Last Updated 09/07/18 @ 23:57 by Ryan Yu MD) Aspiration pneumonia (Acute) UTI (urinary tract infection) (Acute) 1. Acute metabolic encephalopathy due to UTI Resolving. Patient still remains confused but he does have dementia and so he is back to his baseline. Currently on treatment for UTI. 2. Acute hypoxic respiratory failure due to aspiration pneumonia Resolved. He is now off oxygen. On breathing treatments and antibiotics. 3. Aspiration pneumonia: CXR was negative. On IV zosyn. has remained afebrile. Will monitor 4. Acute complicated UTI has history of Mullen catheter usage chronically. Had recently been treated on outpatient basis with Macrobid. Was positive for UTI on admission. Urine cultures pending blood cultures also pending. 5. BPH: Status post Mullen catheter. On Proscar and Flomax 6. Dementia with behavioral disturbance Is a resident in the dementia locked unit. On Depakote, Risperdal and trazodone. Ativan was decreased to 0.5 mg nightly from 0.5 mg every 6 hours as seen on his [facility] records. To wean off of Ativan on account of it worsening behavioral disturbance in elderly patients. 7. ANNE: resolved. DVT prophylaxis: heparin Code Visit Inpatient E&M: 80939 Subs Hosp L2
--- NOTE | 2018-09-09 11:21 | PN_ITS ---
Patient Problems: Active and Suspected Problems (Last Updated 09/07/18 @ 23:57 by Ryan Yu MD) Aspiration pneumonia (Acute) UTI (urinary tract infection) (Acute) Subjective: Patient seen and examined. He was alert but quite confused and answered some questions and ignored the others. Unable to do comprehensive review of systems o/a of confusion. Vitals/I&O's: Vital Signs Temp Pulse Resp BP Pulse Ox 98.4 F 73 18 119/54 L 98 09/09/18 08:05 09/09/18 08:05 09/09/18 08:05 09/09/18 08:05 09/09/18 08:05 Oxygen Flow Rate (L/min) 3 Oxygen Delivery Method Room Air Weight: 135 lb 5.01 oz Body Mass Index (BMI) 20.0 Intake and Output for Last 24 Hours 09/07/18 09/08/18 09/09/18 23:59 23:59 23:59 Intake Total 1944 / 1944 1522 / 1522 Output Total 2049 / 2049 1100 / 1100 Balance -106 / -106 422 / 422 General: Alert, Cooperative, Confused HEENT: Atraumatic, PERRLA, EOMI, Normocephalic Oral: Dry Mucosa Neck: Supple, No JVD, Negative Carotid Bruits Lungs: Clear to auscultation, Normal air movement, No rhonchi, No wheeze, No rales Cardiovascular: Regular rate, Regular Rhythm, Normal S1, Normal S2, No murmurs Abdomen: Bowel Sounds Present, Soft, Non Tender, Non-Distended, No Hepato- splenomegaly Extremities: No clubbing, No cyanosis, No edema, Capillary Refill Less than 3 Seconds Skin: No rashes, No breakdown Musculoskeletal: No Tenderness to Palpation of Joints or Extremities Lymphatic: No Cervical, Supraclavicular, or Inguinal Adenopathy Neurological: Cranial nerves II-XII grossly intact, Neuro grossly intact Psych/Mental Status: Normal Affect, Appropriate Microbiology Past 72 Hours 09/07/18 21:55 Blood Culture (Wb) - Anticubital Right Blood Culture - Preliminary Staphylococcus aureus 09/07/18 21:50 Blood Culture (Wb) - Anticubital Left Blood Culture - Preliminary Staphylococcus aureus 09/07/18 22:10 Urine Catheter - Mullen Urine Culture - Final Staphylococcus aureus Mixed Gram Positive Organisms 09/07/18 22:10 Urine Catheter - Catheter Streptococcus pneumoniae Antigen (M - Final 09/07/18 22:10 Urine Catheter - Catheter Legionella Antigen - Final Diagnostic Data Brain CT 09/07/18 21:39 IMPRESSION: 1. Chronic right basal ganglia lacunar infarct. 2. Microvascular ischemia. Atrophy. 3. 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 ENT evaluation is advised. Electronically Signed: Ruth Barrios MD at 23:01 EST Tel , Service support , Cervical Spine CT 09/07/18 21:39 IMPRESSION: Normal alignment of the cervical spine without acute fracture deformity. Degenerative disc and joint changes as stated above. Bilateral carotid artery calcifications. Electronically Signed: Mavis Peña MD at 23:40 EST , Service support , Current Medications Acetaminophen (Tylenol) 650 mg PO Q6H PRN PRN PRN Reason: FEVER OF 100.4 OR HEADACHE Last Admin: 09/09/18 04:41 Dose: 650 mg Albuterol Sulfate (Ventolin Aerosols) 2.5 mg INHALATION Q2H PRN PRN PRN Reason: SHORTNESS OF BREATH Bisacodyl (Dulcolax) 5 mg PO DAILY PRN PRN PRN Reason: Constipation Finasteride (Proscar) 5 mg PO DAILY [facility] Last Admin: 09/09/18 08:02 Dose: 5 mg Haloperidol Lactate (Haldol) 1 mg IV Q6H PRN PRN PRN Reason: AGITATION Last Admin: 09/09/18 08:02 Dose: 1 mg Heparin Sodium (Porcine) (Heparin Na) 5,000 unit SC Q8 [facility] Last Admin: 09/09/18 05:42 Dose: 5,000 unit Piperacillin Sod/Tazobactam (Sod 3.375 gm/ Sodium Chloride) 50 mls @ 12.5 mls/hr IV Q8 [facility] Last Admin: 09/09/18 05:40 Dose: 12.5 mls/hr Sodium Chloride () 250 mls @ 15 mls/hr IV .[id number] PRN PRN Reason: SALINE FLUSH Vancomycin IV Pharmacy to Dose (1,500 ea/ Sodium Chloride) 500 mls @ 250 mls/hr IV PRN PRN; Protocol PRN Reason: PHARMACY TO DOSE Vancomycin HCl 1,250 mg/ (Sodium Chloride) 275 mls @ 183 mls/hr IV Q24H [facility] Lisinopril (Zestril) 2.5 mg PO DAILY [facility] Last Admin: 09/09/18 08:02 Dose: 2.5 mg Lorazepam (Ativan) 0.25 mg PO QHS [facility] Last Admin: 09/08/18 21:58 Dose: 0.25 mg Magnesium Hydroxide (Milk Of Magnesia) 30 ml PO DAILY PRN PRN PRN Reason: Constipation Mupirocin (Bactroban) 1 applic NASAL BID [facility]; Protocol Stop: 09/13/18 22:01 Last Admin: 09/09/18 08:53 Dose: 1 applicatio Nutritional Formula (Lactose Free) (Ensure Enlive) 120 ml PO 4X/DAY [facility] Last Admin: 09/09/18 08:58 Dose: 120 ml Ondansetron HCl (Zofran) 4 mg IV Q8H PRN PRN PRN Reason: NAUSEA Risperidone (Risperdal) 0.5 mg PO QHS [facility] Last Admin: 09/08/18 21:57 Dose: 0.5 mg Sodium Chloride () 5 - 15 ml IV UD PRN PRN Reason: SALINE FLUSH Last Admin: 09/09/18 08:03 Dose: 10 ml Tamsulosin HCl (Flomax) 0.8 mg PO DAILY@1730 [facility] Last Admin: 09/08/18 19:06 Dose: 0.8 mg Trazodone HCl (Desyrel) 100 mg PO QHS [facility] Last Admin: 09/08/18 21:58 Dose: 100 mg Valproic Acid (Depakene) 125 mg PO BID [facility] Last Admin: 09/09/18 08:01 Dose: 125 mg Medical Necessity - Tobacco Use Smoking Status: Former smoker Assessment/Plan All Active Problems (Last Updated 09/07/18 @ 23:57 by Ryan Yu MD) Aspiration pneumonia (Acute) UTI (urinary tract infection) (Acute) 1. Acute metabolic encephalopathy due to UTI * Resolving. Patient still remains confused but he does have dementia and so he is back to his baseline. * Currently on treatment for UTI. * 2. Acute hypoxic respiratory failure due to aspiration pneumonia * Resolved. He is now off oxygen. * On breathing treatments and antibiotics. 3. Aspiration pneumonia: CXR was negative. On IV zosyn. has remained afebrile. Will monitor 4. Acute complicated UTI * has history of Mullen catheter usage chronically. Had recently been treated on outpatient basis with Macrobid. * Was positive for UTI on admission. Urine cultures pending blood cultures also pending. * 5. BPH: Status post Mullen catheter. On Proscar and Flomax 6. Dementia with behavioral disturbance * Is a resident in the dementia locked unit. On Depakote, Risperdal and trazodone. * Ativan was decreased to 0.5 mg nightly from 0.5 mg every 6 hours as seen on his intermediate records. To wean off of Ativan on account of it worsening behavioral disturbance in elderly patients. * 7. ANNE: resolved. DVT prophylaxis: heparin Code Visit Inpatient E&M: 75081 Subs Hosp L2
--- NOTE | 2018-09-09 11:22 | CASEMGMT ---
Addendum entered by Liz Do 09/09/18 11:25: MARITZA received call from Livier at [facility]. Livier states that pt can come back whenever and doesn't have to be Haldol free for 24 hours. MARITZA informed Livier once physician updates this worker when pt is able to discharge this worker will update her. Original Note: Social Work Note Pt had dose of Haldol this morning at 8:00am. MARITZA placed a call to Livier at [facility] and asked her if pt has to be at [facility] for 24 hours since pt had dose of Haldol or if pt can come back when medically cleared as pt is in dementia unit at [facility]. Livier states she will ask DON and give this worker a call back. Liz Do MIXER ATTENDANT, TRUCK BRACER
--- NOTE | 2018-09-09 11:42 | CASEMGMT ---
Social Work Note Physician updated this worker that pt is likely to discharge tomorrow. Livier at [facility] updated on this. Plan: Discharge to [facility] tomorrow Liz Do MSW, PORTABLE POWER TOOL REPAIRER
[2018-09-09 14:00] VITALS: BP 142/64; PULSE 78; RESP 18; TEMP 36.8; O2SAT 99
[2018-09-09 21:36] VITALS: BP 153/79; PULSE 72; RESP 18; TEMP 37.1; O2SAT 99
[2018-09-09 21:45] VITALS: PULSE 72; RESP 18; O2SAT 99
[2018-09-09] MEDS: LORazepam 0.5 MG Tablet 0.25 MG PO (21:48)
[2018-09-09] MEDS: traZODone 100 MG Tablet PO (21:49)
[2018-09-09] MEDS: RisperiDONE 0.5 MG Tablet PO (21:52)
[2018-09-10 02:30] VITALS: BP 147/70; PULSE 70; RESP 18; TEMP 37.4; O2SAT 98
[2018-09-10] MEDS: 0.9% NaCl IVPB Med Flush (250 mL) 15 ML IV (05:25)
[2018-09-10] MEDS: Heparin Injection (Vial) 5,000 UNIT/ML VIAL 5000 UNIT SC ×3 (05:26→22:02)
[2018-09-10 06:12] LABS: Absolute Lymphocyte Count 0.81 X10^3/ul (0.83-4.51); Absolute Neutrophil Count 4.4 X10^3/uL (2.0-7.7); Basophil# 0.02 X10^3/uL; Basophil% 0.3 % (0-1); Eosinophil# 0.11 X10^3/uL; Eosinophils% 1.9 % (0-5); Hematocrit 37.6 % (40-54); Hemoglobin 11.7 g/dl (13.0-16.5); Lymphocyte # 0.81 X10^3/ul (4.0); Lymphocyte % 14.1 % (19-41); Mean Corp Hgb Conc 31.1 g/gl (32-36); Mean Corpuscular Hgb 28.7 pg (27.0-32.0); Mean Corpuscular Volume 92.2 fL (80-94); Mean Platelet Vol. 8.3 fl (6.2-12.0); Monocyte# 0.29 X10^3/uL; Monocyte% 5.1 % (0-10); Neutrophil % 76.9 % (47-70); Platelet Count 211 K/mm3 (150-450); RBC Distribution Width CV 12.7 % (11.6-14.6); RBC Distribution Width SD 42.1 fl (35.1-43.9); Red Blood Count 4.08 M/mm3 (4.6-6.2); White Blood Count 5.7 K/mm3 (4.4-11.0)
[2018-09-10 06:21] LABS: POSITIVE COUNT NO; POSITIVE DIFFERENTIAL NO; POSITIVE MORPHOLOGY NO
[2018-09-10 06:28] LABS: Anion Gap 8 (5-15); BUN 18 mg/dL (7-18); BUN/Creat Ratio 29.5 RATIO (10-20); Calcium,Total 8.4 mg/dL (8.5-10.1); Chloride 112 mmol/L (98-107); Creatinine, Serum 0.61 mg/dL (0.70-1.30); EST Glomerular Filtration Rate 135 mL/min (>60); Est Glom Filt Rate - Afr Amer 164 mL/min (>60); Glucose 86 mg/dL (74-106); Potassium 3.7 mmol/L (3.5-5.1); Sodium Level 145 mmol/L (136-145)
--- NOTE | 2018-09-10 08:11 | ECHOD_ITS ---
Reason For Study: EMBOLI, BACTEREMIA Procedure This was a 2D Doppler, Color Flow transthoracic echocardiogram. The exam was of adequate technical quality. Exam performed portable in patient room. Left Ventricle Normal LV size. Left ventricular systolic function is normal. The estimated ejection fraction is 65 %. No evidence for diastolic dysfunction. No regional wall motion abnormalities noted. Right Ventricle Normal RV size. Normal systolic function. Atria Normal left atrium. Normal right atrium. No doppler evidence for ASD. Mitral Valve There is no mitral annular calcification. Mild diffuse mitral valve thickening. Mild mitral valve prolapse, posterior leaflet. Mild (1+) eccentric mitral valve insufficiency. Tricuspid Valve Mild diffuse thickening of the tricuspid valve. Mild tricuspid valve insufficiency. Right ventricular systolic pressure estimated to be 29 mmHg. Aortic Valve Trisinus/trileaflet aortic valve. Mild diffuse aortic valve thickening. Moderate diffuse aortic valve calcification. Mild aortic stenosis. Trivial aortic valve insufficiency. Pulmonic Valve The pulmonic valve is not well visualized. Mild (1+) pulmonic valve insufficiency. Great Vessels Normal sized aortic root. Pericardium/Pleural Trivial pericardial effusion. There are no echocardiographic indications of cardiac tamponade. MMode/2D Measurements & Calculations LVIDd: 4.4 cm IVSd: 1.2 cm LVOT diam: 2.0 cm LVIDs: 2.9 cm LVPWd: 1.2 cm LVOT area: 3.0 cm2 RVDd: 3.6 cm FS: 34.5 % Ao root diam: 3.3 cm LAV(MOD-bp): 58.6 ml LVAd ap4: 34.9 cm2 LAV(MOD-bp) Indexed: 33.5 ml/m2 EDV(MOD-sp4): 118.1 ml LAV(MOD-sp2): 73.3 ml EDV(sp4-el): 121.0 ml LAV(MOD-sp4): 45.3 ml LVAs ap4: 19.5 cm2 ESV(MOD-sp4): 43.7 ml ESV(sp4-el): 44.1 ml EF(MOD-sp4): 62.9 % EF(sp4-el): 63.6 % SV(MOD-sp4): 74.3 ml SV(sp4-el): 76.9 ml LA A4 area: 15.8 cm2 LA dimension(2D): 3.6 cm RA A4 area: 12.2 cm2 Time Measurements MV dec time: 0.23 sec Doppler Measurements & Calculations MV E max brady: 82.0 cm/sec Lat Peak E' Brady: 11.8 cm/sec Med Peak E' Brady: 10.3 cm/sec MV A max brady: 102.4 cm/sec E/E' lat: 7.0 E/E' med: 8.0 MV E/A: 0.80 Ao V2 max: 179.5 cm/sec AI max brady: 441.4 cm/sec LV V1 max: 102.2 cm/sec Ao max P.9 mmHg AI max P.9 mmHg LV V1 max P.2 mmHg CAROLE(V,D): 1.7 cm2 AI dec slope: 293.8 cm/sec2 AI P1/2t: 440.1 msec PA V2 max: 96.7 cm/sec TR max brady: 254.7 cm/sec TR max P.9 mmHg Interpretation Summary Left ventricular systolic function is normal. The estimated ejection fraction is 65 %. Mild diffuse mitral valve thickening. Mild mitral valve prolapse, posterior leaflet Mild (1+) eccentric mitral valve insufficiency. Mild diffuse thickening of the tricuspid valve. Mild tricuspid valve insufficiency. Mild aortic stenosis. Trivial aortic valve insufficiency. Mild (1+) pulmonic valve insufficiency. Trivial pericardial effusion. There are no echocardiographic indications of cardiac tamponade. Right ventricular systolic pressure estimated to be 29 mmHg. No evidence for diastolic dysfunction. Ordering Physician: Valencia Alcala Referring Physician: Ryan Yu Performed By: Samantha Art RDCS
[2018-09-10] MEDS: Finasteride 5 MG Tablet PO (09:27)
[2018-09-10] MEDS: Lisinopril 2.5 MG Tablet PO (09:27)
[2018-09-10] MEDS: Mupirocin Ointment 22gm Tube 1 APPLIC NASAL ×2 (09:28→22:03)
[2018-09-10 09:37] VITALS: BP 127/68; PULSE 73; RESP 18; TEMP 36.2; O2SAT 98
--- NOTE | 2018-09-10 10:21 | PCM.PN.HOSP ---
Patient Problems: Active and Suspected Problems (Last Updated 09/07/18 @ 23:57 by Ryan Yu MD) Aspiration pneumonia (Acute) UTI (urinary tract infection) (Acute) MRSA bacteremia (Acute) Subjective: Patient seen and examined. He had no complaints and had an uneventful night. A sitter was by him at time of review. He denied any fever or chills, cough or chest pain, diarrhea vomiting. Review of systems otherwise negative. Labs and vitals reviewed. Blood culture MRSA and urine also cultured Staphylococcus aureus and mixed gram-positive organisms. Vitals/I&O's: Vital Signs Temp Pulse Resp BP Pulse Ox 97.2 F L 73 18 127/68 H 98 09/10/18 09:37 09/10/18 09:37 09/10/18 09:37 09/10/18 09:37 09/10/18 09:37 Oxygen Flow Rate (L/min) 3 Oxygen Delivery Method Room Air Weight: 135 lb 5.01 oz Body Mass Index (BMI) 20.0 Intake and Output for Last 24 Hours 09/08/18 09/09/18 09/10/18 23:59 23:59 23:59 Intake Total 194 / 4 3088 / 3088 564 / 564 Output Total 2049 / 2049 2400 / 2400 1050 / 1050 Balance -106 / -106 688 / 688 -486 / -486 General: Alert, Cooperative, still mildly confused but able to answer questions. HEENT: Atraumatic, PERRLA, EOMI, Normocephalic Oral: Dry Mucosa Neck: Supple, No JVD, Negative Carotid Bruits Lungs: Clear to auscultation, Normal air movement, No rhonchi, No wheeze, No rales Cardiovascular: Regular rate, Regular Rhythm, Normal S1, Normal S2, No murmurs Abdomen: Bowel Sounds Present, Soft, Non Tender, Non-Distended, No Hepato-splenomegaly Extremities: No clubbing, No cyanosis, No edema, Capillary Refill Less than 3 Seconds Skin: No rashes, No breakdown Musculoskeletal: No Tenderness to Palpation of Joints or Extremities Lymphatic: No Cervical, Supraclavicular, or Inguinal Adenopathy Neurological: Cranial nerves II-XII grossly intact, Neuro grossly intact Psych/Mental Status: Normal Affect, Appropriate Microbiology Past 72 Hours 09/07/18 21:50 Blood Culture (Wb) - Anticubital Left Blood Culture - Preliminary Meth. resistant Staph. aureus 09/07/18 21:55 Blood Culture (Wb) - Anticubital Right Blood Culture - Final Staphylococcus aureus 09/07/18 22:10 Urine Catheter - Mullen Urine Culture - Final Staphylococcus aureus Mixed Gram Positive Organisms 09/07/18 22:10 Urine Catheter - Catheter Streptococcus pneumoniae Antigen (M - Final 09/07/18 22:10 Urine Catheter - Catheter Legionella Antigen - Final Laboratory Results 09/10/18 05:30: WBC 5.7, RBC 4.08 L, Hgb 11.7 L, Hct 37.6 L, MCV 92.2, MCH 28.7, MCHC 31.1 L, RDW 12.7, RDW Differential 42.1, Plt Count 211, MPV 8.3, Immature Gran % (Auto) 1.700 H, Neut % (Auto) 76.9 H, Lymph % (Auto) 14.1 L, [place] % (Auto) 5.1, Eos % (Auto) 1.9, Baso % (Auto) 0.3, Absolute Neuts (auto) 4.4, Absolute Lymphs (auto) 0.81 L, Total Counted Not Reportable 09/10/18 05:30: Sodium 145, Potassium 3.7, Chloride 112 H, Carbon Dioxide 25.0, Anion Gap 8, BUN 18, Creatinine 0.61 L, Estim Creat Clear Calc 52.00, Est GFR (MDRD) Af Amer 164, Est GFR (MDRD) Non-Af 135, BUN/Creatinine Ratio 29.5 H, Glucose 86, Calcium 8.4 L Current Medications Acetaminophen (Tylenol) 650 mg PO Q6H PRN PRN PRN Reason: FEVER OF 100.4 OR HEADACHE Last Admin: 09/09/18 04:41 Dose: 650 mg Albuterol Sulfate (Ventolin Aerosols) 2.5 mg INHALATION Q2H PRN PRN PRN Reason: SHORTNESS OF BREATH Bisacodyl (Dulcolax) 5 mg PO DAILY PRN PRN PRN Reason: Constipation Finasteride (Proscar) 5 mg PO DAILY [facility] Last Admin: 09/10/18 09:27 Dose: 5 mg Haloperidol Lactate (Haldol) 1 mg IV Q6H PRN PRN PRN Reason: AGITATION Last Admin: 09/09/18 08:02 Dose: 1 mg Heparin Sodium (Porcine) (Heparin Na) 5,000 unit SC Q8 [facility] Last Admin: 09/10/18 05:26 Dose: 5,000 unit Sodium Chloride () 250 mls @ 15 mls/hr IV .[id number] PRN PRN Reason: SALINE FLUSH Last Admin: 09/10/18 05:25 Dose: 15 mls/hr Vancomycin IV Pharmacy to Dose (1,500 ea/ Sodium Chloride) 500 mls @ 250 mls/hr IV PRN PRN; Protocol PRN Reason: PHARMACY TO DOSE Vancomycin HCl 1,250 mg/ (Sodium Chloride) 275 mls @ 183 mls/hr IV Q24H [facility] Last Admin: 09/09/18 11:42 Dose: 183 mls/hr Lisinopril (Zestril) 2.5 mg PO DAILY [facility] Last Admin: 09/10/18 09:27 Dose: 2.5 mg Lorazepam (Ativan) 0.25 mg PO QHS [facility] Last Admin: 09/09/18 21:48 Dose: 0.25 mg Magnesium Hydroxide (Milk Of Magnesia) 30 ml PO DAILY PRN PRN PRN Reason: Constipation Mupirocin (Bactroban) 1 applic NASAL BID [facility]; Protocol Stop: 09/13/18 22:01 Last Admin: 09/10/18 09:28 Dose: 1 applicatio Nutritional Formula (Lactose Free) (Ensure Enlive) 120 ml PO 4X/DAY [facility] Last Admin: 09/10/18 09:28 Dose: 120 ml Ondansetron HCl (Zofran) 4 mg IV Q8H PRN PRN PRN Reason: NAUSEA Risperidone (Risperdal) 0.5 mg PO QHS [facility] Last Admin: 09/09/18 21:52 Dose: 0.5 mg Sodium Chloride () 5 - 15 ml IV UD PRN PRN Reason: SALINE FLUSH Last Admin: 09/09/18 08:03 Dose: 10 ml Tamsulosin HCl (Flomax) 0.8 mg PO DAILY@1730 [facility] Last Admin: 09/09/18 17:07 Dose: Not Given Trazodone HCl (Desyrel) 100 mg PO QHS [facility] Last Admin: 09/09/18 21:49 Dose: 100 mg Valproic Acid (Depakene) 125 mg PO BID [facility] Last Admin: 09/10/18 09:28 Dose: 125 mg Medical Necessity - Tobacco Use Smoking Status: Former smoker Assessment/Plan All Active Problems (Last Updated 09/07/18 @ 23:57 by Ryan Yu MD) Aspiration pneumonia (Acute) UTI (urinary tract infection) (Acute) MRSA bacteremia (Acute) 1. MRSA bacteremia due to UTI and aspiration pneumonia both sets of blood cultured on admission grew Staph, with one growing MRSA. Urine grew Staph aureus and mixed gram positive organisms. ID consult placed will dc zosyn and continue IV vancomycin will order 2D echo to assess for possible vegetations. 2. Acute metabolic encephalopathy due to UTI Resolving. Patient still remains confused but he does have dementia and so he is back to his baseline. will monitor 3. Acute hypoxic respiratory failure due to aspiration pneumonia Resolved. He is now off oxygen. On breathing treatments; zosyn stopped and now on IV vancomycin 4. Aspiration pneumonia: CXR was negative. now on IV vancomycin o/a of blood cultures. 5. Acute complicated UTI has history of Mullen catheter usage chronically. Had recently been treated on outpatient basis with Macrobid. urine cultured staph aureus and mixed gram-positive organisms. Cultured MRSA on IV Vancomycin. ID consulted. 6. BPH: Status post Mullen catheter. On Proscar and Flomax 7. Dementia with behavioral disturbance Is a resident in the dementia locked unit. On Depakote, Risperdal and trazodone. Ativan was decreased to 0.5 mg nightly from 0.5 mg every 6 hours as [facility]. To wean off of Ativan on account of it worsening behavioral disturbance in elderly patients. 8. ANNE: resolved. DVT prophylaxis: heparin Code Visit Inpatient E&M: 13327 Subs Hosp L3
--- NOTE | 2018-09-10 10:26 | PN_ITS ---
Patient Problems: Active and Suspected Problems (Last Updated 09/07/18 @ 23:57 by Ryan Yu MD) Aspiration pneumonia (Acute) UTI (urinary tract infection) (Acute) MRSA bacteremia (Acute) Subjective: Patient seen and examined. He had no complaints and had an uneventful night. A sitter was by him at time of review. He denied any fever or chills, cough or chest pain, diarrhea vomiting. Review of systems otherwise negative. Labs and vitals reviewed. Blood culture MRSA and urine also cultured Staphylococcus aureus and mixed gram-positive organisms. Vitals/I&O's: Vital Signs Temp Pulse Resp BP Pulse Ox 97.2 F L 73 18 127/68 H 98 09/10/18 09:37 09/10/18 09:37 09/10/18 09:37 09/10/18 09:37 09/10/18 09:37 Oxygen Flow Rate (L/min) 3 Oxygen Delivery Method Room Air Weight: 135 lb 5.01 oz Body Mass Index (BMI) 20.0 Intake and Output for Last 24 Hours 09/08/18 09/09/18 09/10/18 23:59 23:59 23:59 Intake Total 194 / 4 3088 / 3088 564 / 564 Output Total 2049 / 2049 2400 / 2400 1050 / 1050 Balance -106 / -106 688 / 688 -486 / -486 General: Alert, Cooperative, still mildly confused but able to answer questions. HEENT: Atraumatic, PERRLA, EOMI, Normocephalic Oral: Dry Mucosa Neck: Supple, No JVD, Negative Carotid Bruits Lungs: Clear to auscultation, Normal air movement, No rhonchi, No wheeze, No rales Cardiovascular: Regular rate, Regular Rhythm, Normal S1, Normal S2, No murmurs Abdomen: Bowel Sounds Present, Soft, Non Tender, Non-Distended, No Hepato- splenomegaly Extremities: No clubbing, No cyanosis, No edema, Capillary Refill Less than 3 Seconds Skin: No rashes, No breakdown Musculoskeletal: No Tenderness to Palpation of Joints or Extremities Lymphatic: No Cervical, Supraclavicular, or Inguinal Adenopathy Neurological: Cranial nerves II-XII grossly intact, Neuro grossly intact Psych/Mental Status: Normal Affect, Appropriate Microbiology Past 72 Hours 09/07/18 21:50 Blood Culture (Wb) - Anticubital Left Blood Culture - Preliminary Meth. resistant Staph. aureus 09/07/18 21:55 Blood Culture (Wb) - Anticubital Right Blood Culture - Final Staphylococcus aureus 09/07/18 22:10 Urine Catheter - Mullen Urine Culture - Final Staphylococcus aureus Mixed Gram Positive Organisms 09/07/18 22:10 Urine Catheter - Catheter Streptococcus pneumoniae Antigen (M - Final 09/07/18 22:10 Urine Catheter - Catheter Legionella Antigen - Final Laboratory Results 09/10/18 05:30: WBC 5.7, RBC 4.08 L, Hgb 11.7 L, Hct 37.6 L, MCV 92.2, MCH 28.7, MCHC 31.1 L, RDW 12.7, RDW Differential 42.1, Plt Count 211, MPV 8.3, Immature Gran % (Auto) 1.700 H, Neut % (Auto) 76.9 H, Lymph % (Auto) 14.1 L, Barrow % (Auto) 5.1, Eos % (Auto) 1.9, Baso % (Auto) 0.3, Absolute Neuts (auto) 4.4, Absolute Lymphs (auto) 0.81 L, Total Counted Not Reportable 09/10/18 05:30: Sodium 145, Potassium 3.7, Chloride 112 H, Carbon Dioxide 25.0, Anion Gap 8, BUN 18, Creatinine 0.61 L, Estim Creat Clear Calc 52.00, Est GFR (MDRD) Af Amer 164, Est GFR (MDRD) Non-Af 135, BUN/Creatinine Ratio 29.5 H, Glucose 86, Calcium 8.4 L Current Medications Acetaminophen (Tylenol) 650 mg PO Q6H PRN PRN PRN Reason: FEVER OF 100.4 OR HEADACHE Last Admin: 09/09/18 04:41 Dose: 650 mg Albuterol Sulfate (Ventolin Aerosols) 2.5 mg INHALATION Q2H PRN PRN PRN Reason: SHORTNESS OF BREATH Bisacodyl (Dulcolax) 5 mg PO DAILY PRN PRN PRN Reason: Constipation Finasteride (Proscar) 5 mg PO DAILY [facility] Last Admin: 09/10/18 09:27 Dose: 5 mg Haloperidol Lactate (Haldol) 1 mg IV Q6H PRN PRN PRN Reason: AGITATION Last Admin: 09/09/18 08:02 Dose: 1 mg Heparin Sodium (Porcine) (Heparin Na) 5,000 unit SC Q8 [facility] Last Admin: 09/10/18 05:26 Dose: 5,000 unit Sodium Chloride () 250 mls @ 15 mls/hr IV .[id number] PRN PRN Reason: SALINE FLUSH Last Admin: 09/10/18 05:25 Dose: 15 mls/hr Vancomycin IV Pharmacy to Dose (1,500 ea/ Sodium Chloride) 500 mls @ 250 mls/hr IV PRN PRN; Protocol PRN Reason: PHARMACY TO DOSE Vancomycin HCl 1,250 mg/ (Sodium Chloride) 275 mls @ 183 mls/hr IV Q24H [facility] Last Admin: 09/09/18 11:42 Dose: 183 mls/hr Lisinopril (Zestril) 2.5 mg PO DAILY [facility] Last Admin: 09/10/18 09:27 Dose: 2.5 mg Lorazepam (Ativan) 0.25 mg PO QHS [facility] Last Admin: 09/09/18 21:48 Dose: 0.25 mg Magnesium Hydroxide (Milk Of Magnesia) 30 ml PO DAILY PRN PRN PRN Reason: Constipation Mupirocin (Bactroban) 1 applic NASAL BID [facility]; Protocol Stop: 09/13/18 22:01 Last Admin: 09/10/18 09:28 Dose: 1 applicatio Nutritional Formula (Lactose Free) (Ensure Enlive) 120 ml PO 4X/DAY [facility] Last Admin: 09/10/18 09:28 Dose: 120 ml Ondansetron HCl (Zofran) 4 mg IV Q8H PRN PRN PRN Reason: NAUSEA Risperidone (Risperdal) 0.5 mg PO QHS [facility] Last Admin: 09/09/18 21:52 Dose: 0.5 mg Sodium Chloride () 5 - 15 ml IV UD PRN PRN Reason: SALINE FLUSH Last Admin: 09/09/18 08:03 Dose: 10 ml Tamsulosin HCl (Flomax) 0.8 mg PO DAILY@1730 [facility] Last Admin: 09/09/18 17:07 Dose: Not Given Trazodone HCl (Desyrel) 100 mg PO QHS [facility] Last Admin: 09/09/18 21:49 Dose: 100 mg Valproic Acid (Depakene) 125 mg PO BID [facility] Last Admin: 09/10/18 09:28 Dose: 125 mg Medical Necessity - Tobacco Use Smoking Status: Former smoker Assessment/Plan All Active Problems (Last Updated 09/07/18 @ 23:57 by Ryan Yu MD) Aspiration pneumonia (Acute) UTI (urinary tract infection) (Acute) MRSA bacteremia (Acute) 1. MRSA bacteremia due to UTI and aspiration pneumonia * both sets of blood cultured on admission grew Staph, with one growing MRSA. Urine grew Staph aureus and mixed gram positive organisms. * ID consult placed * will dc zosyn and continue IV vancomycin * will order 2D echo to assess for possible vegetations. 2. Acute metabolic encephalopathy due to UTI * Resolving. Patient still remains confused but he does have dementia and so he is back to his baseline. * will monitor * 3. Acute hypoxic respiratory failure due to aspiration pneumonia * Resolved. He is now off oxygen. * On breathing treatments; zosyn stopped and now on IV vancomycin 4. Aspiration pneumonia: CXR was negative. now on IV vancomycin o/a of blood cultures. 5. Acute complicated UTI * has history of Mullen catheter usage chronically. Had recently been treated on outpatient basis with Macrobid. * urine cultured staph aureus and mixed gram-positive organisms. * Cultured MRSA * on IV Vancomycin. ID consulted. 6. BPH: Status post Mullen catheter. On Proscar and Flomax 7. Dementia with behavioral disturbance * Is a resident in the dementia locked unit. On Depakote, Risperdal and trazodone. * Ativan was decreased to 0.5 mg nightly from 0.5 mg every 6 hours as seen on his alf records. To wean off of Ativan on account of it worsening behavioral disturbance in elderly patients. * 8. ANNE: resolved. DVT prophylaxis: heparin Code Visit Inpatient E&M: 17522 Subs Hosp L3
[2018-09-10] MEDS: Haloperidol Lactate 5 MG/ML Vial 1 MG IV (10:29)
[2018-09-10] MEDS: 0.9% NaCl Peripheral Flush Adult/Peds IV (10:31)
--- NOTE | 2018-09-10 11:28 | PCM.HP.ID ---
Problem List (1) MRSA bacteremia Status: Acute Reason for Consult: mrsa Consulted by: Dr. Alcala History of Present Illness: The patient is a 77 year old M with dementia, lives in [facility], presented after fall with bruising across his chest. Has chronic daly, some h/o aspiration. No fever, no recent rash, no h/o skin infection or boils per his . Admitted here, given zosyn initially, now bcx with MRSA. Abx changed to vanc. ROS unobtainable due to dementia - Medical History Surgical History: reviewed Allergies/Adverse Reactions: Allergies Penicillins Adverse Reaction (Verified 09/08/18 06:31) Unknown HTN, high heart rate, n/v Home Medications: Ambulatory Orders Medication Instructions Recorded Acetaminophen 1 - 2 tab PO Q4H PRN 08/05/18 Bisacodyl 10 mg RC PRN PRN 08/05/18 Divalproex Sodium [Depakote] 125 mg PO BID 08/05/18 Hydrocortisone Acetate Cream 1 applic RECTAL DAILY PRN PRN 08/05/18 [Anusol Hc] Lisinopril 2.5 mg PO DAILY 08/05/18 Lorazepam [Ativan] 0.5 mg PO Q6H PRN 08/05/18 Mag Hydrox/Aluminum Hyd/Simeth 355 ml PO Q4H PRN 08/05/18 [Antacid Suspension] Risperidone [Risperdal] 0.5 mg PO QHS 08/05/18 Tamsulosin HCl [Flomax] 0.8 mg PO DAILY 08/05/18 traZODone [Desyrel] 100 mg PO QHS 08/05/18 Finasteride [Proscar] 5 mg PO DAILY 09/07/18 Nitrofurantoin Macrocrystals 100 mg PO Q12 09/07/18 [Macrobid] Sennosides/Docusate Sodium 1 each PO DINNER 09/08/18 [Senna-Docusate Sodium Tablet] - Social History SMOKING STATUS:: Former smoker Vital Signs Temp Pulse Resp BP Pulse Ox 97.2 F L 73 18 127/68 H 98 09/10/18 09:37 09/10/18 09:37 09/10/18 09:37 09/10/18 09:37 09/10/18 09:37 Oxygen Flow Rate (L/min) 3 Oxygen Delivery Method Room Air Weight: 61.377 kg Body Mass Index (BMI) 20.0 Microbiology Past 72 Hours 09/07/18 21:50 Blood Culture - Preliminary Blood Culture (Wb) - Anticubital Left Meth. resistant Staph. aureus 09/07/18 21:55 Blood Culture - Final Blood Culture (Wb) - Anticubital Right Staphylococcus aureus 09/07/18 22:10 Urine Culture - Final Urine Catheter - Daly Staphylococcus aureus Mixed Gram Positive Organisms 09/07/18 22:10 Streptococcus pneumoniae Antigen (M - Final Urine Catheter - Catheter 09/07/18 22:10 Legionella Antigen - Final Urine Catheter - Catheter Laboratory Tests Past 24 Hrs 09/10/18 09/10/18 09/10/18 05:30 05:30 10:30 WBC 5.7 RBC 4.08 L Hgb 11.7 L Hct 37.6 L MCV 92.2 MCH 28.7 MCHC 31.1 L RDW 12.7 RDW Differential 42.1 Plt Count 211 MPV 8.3 Immature Gran % (Auto) 1.700 H Neut % (Auto) 76.9 H Lymph % (Auto) 14.1 L Thayer % (Auto) 5.1 Eos % (Auto) 1.9 Baso % (Auto) 0.3 Absolute Neuts (auto) 4.4 Absolute Lymphs (auto) 0.81 L Total Counted Not Reportable Sodium 145 Potassium 3.7 Chloride 112 H Carbon Dioxide 25.0 Anion Gap 8 BUN 18 Creatinine 0.61 L Estim Creat Clear Calc 52.00 Est GFR (MDRD) Af Amer 164 Est GFR (MDRD) Non-Af 135 BUN/Creatinine Ratio 29.5 H Glucose 86 Calcium 8.4 L Vancomycin Trough Pending - Other Studies Radiology: [] reviewed Other Studies: [] Route of nutrition/ use of supplements: [] Nutritional Intake: [] IV Site: [] Daly Catheter: [] - Physical Exam General: - - eyes open, some intelligible speech, unable to follow commands HEENT: Atraumatic, PERRLA, EOMI Neck: Supple, No Nodes Lungs: Clear to auscultation, Normal air movement Cardiovascular: Regular rate, Regular Rhythm, Murmur Abdomen: Soft, Non Tender, Non-Distended Extremities: No edema Skin: No rashes, - - no splinter hemorrhages Musculoskeletal: No Tenderness to Palpation of Joints or Extremities Neurological: Cranial nerves II-XII grossly intact - Assessment/Plan Antibiotics: [] Assessment/Plan: [] Active and Suspected Problems (Last Updated 09/07/18 @ 23:57 by Ryan Yu MD) Aspiration pneumonia (Acute) UTI (urinary tract infection) (Acute) MRSA bacteremia - cxr clear, ucx neg. Unclear source of mrsa. Has chronic daly. In ECF for dementia. Continue vanc, check TTE and repeat bcx. Will follow, thank you.
[2018-09-10 11:42] LABS: Vancomycin, Trough Level 4.9 ug/mL (5.0-15.0)
--- NOTE | 2018-09-10 12:52 | PCM.RX.CS ---
Consult Pharmacy has been consulted to manage selected antiobiotic: Vancomycin Type of Consult: Follow-up Suspected Infection: Pneumonia Prior Doses of Antibiotics Received/Current Regimen: 3 Labs: Sodium 145 mmol/L (136-145) 09/10/18 05:30 Potassium 3.7 mmol/L (3.5-5.1) 09/10/18 05:30 Chloride 112 mmol/L (98-107) H 09/10/18 05:30 Carbon Dioxide 25.0 mmol/L (21.0-32.0) 09/10/18 05:30 Anion Gap 8 (5-15) 09/10/18 05:30 BUN 18 mg/dL (7-18) 09/10/18 05:30 Creatinine 0.61 mg/dL (0.70-1.30) L 09/10/18 05:30 Est GFR (MDRD) Af Amer 164 mL/min (>60) 09/10/18 05:30 Est GFR (MDRD) Non-Af 135 mL/min (>60) 09/10/18 05:30 BUN/Creatinine Ratio 29.5 RATIO (10-20) H 09/10/18 05:30 Glucose 86 mg/dL (74-106) 09/10/18 05:30 Vancomycin Trough 4.9 ug/mL (5.0-15.0) L 09/10/18 10:30 PRIOR TO 4TH NEW DOSE = 09/12/18 @ 1030 Microbiology: Microbiology 09/07/18 21:50 Blood Culture (Wb) - Anticubital Left Blood Culture - Preliminary Meth. resistant Staph. aureus 09/07/18 21:55 Blood Culture (Wb) - Anticubital Right Blood Culture - Final Staphylococcus aureus 09/07/18 22:10 Urine Catheter - Mullen Urine Culture - Final Staphylococcus aureus Mixed Gram Positive Organisms 09/07/18 22:10 Urine Catheter - Catheter Streptococcus pneumoniae Antigen (M - Final 09/07/18 22:10 Urine Catheter - Catheter Legionella Antigen - Final Weight used for dosin.4 kg Estimated Creatinine Clearance: 52 Goal Trough: 15-20 mcg/mL - INCREASE DOSE TO 1250MG Q12H AND RECHECK TROUGH LEVEL PRIOR TO 4TH NEW DOSE Pharmacy Plan for Drug Dosing: Pharmacy Service will continue to monitor and adjust dosing as required.
--- NOTE | 2018-09-10 13:05 | CASEMGMT ---
Social Work Note Physician is not discharging pt today. SW faxed updated clinicals to [facility]. Plan: [facility] when medically cleared Liz Do FAMILY AND MARRIAGE COUNSELLOR, ADMINISTRATIVE ASSISTANT COORDINATOR
[2018-09-10 15:02] VITALS: BP 153/73; PULSE 75; RESP 18; TEMP 36.2; O2SAT 98
[2018-09-10] MEDS: Tamsulosin HCl 0.4 MG Capsule 0.8 MG PO (17:56)
[2018-09-10] MEDS: traZODone 100 MG Tablet PO (22:02)
[2018-09-10] MEDS: RisperiDONE 0.5 MG Tablet PO (22:03)
[2018-09-10 22:51] VITALS: BP 141/69; PULSE 76; RESP 18; TEMP 36.6; O2SAT 94
[2018-09-11] VITALS (8 sets, daily range): BP systolic 98–145; BP diastolic 53–82; PULSE 74–90; RESP 16–18; TEMP 36.5–37.3; O2SAT 94–97
[2018-09-11] MEDS: LORazepam 0.5 MG Tablet 0.25 MG PO ×2 (00:21→22:09)
[2018-09-11] MEDS: Haloperidol Lactate 5 MG/ML Vial IM ×2 (04:36→22:05)
[2018-09-11] MEDS: Heparin Injection (Vial) 5,000 UNIT/ML VIAL 5000 UNIT SC ×3 (05:31→22:09)
[2018-09-11 06:32] LABS: Hematocrit 37.5 % (40-54); Hemoglobin 11.9 g/dl (13.0-16.5); Mean Corp Hgb Conc 31.7 g/gl (32-36); Mean Corpuscular Hgb 29.2 pg (27.0-32.0); Mean Corpuscular Volume 91.9 fL (80-94); Platelet Count 206 K/mm3 (150-450); RBC Distribution Width CV 12.5 % (11.6-14.6); Red Blood Count 4.08 M/mm3 (4.6-6.2); White Blood Count 6.9 K/mm3 (4.4-11.0)
[2018-09-11 06:42] LABS: Differential Indicated MANUAL DIFF; POSITIVE COUNT YES; POSITIVE DIFFERENTIAL NO; POSITIVE MORPHOLOGY YES
[2018-09-11 06:45] LABS: Anion Gap 8 (5-15); BUN 18 mg/dL (7-18); Calcium,Total 8.6 mg/dL (8.5-10.1); Chloride 109 mmol/L (98-107); Creatinine, Serum 0.58 mg/dL (0.70-1.30); EST Glomerular Filtration Rate 143 mL/min (>60); Est Glom Filt Rate - Afr Amer 173 mL/min (>60); Glucose 89 mg/dL (74-106); Potassium 3.8 mmol/L (3.5-5.1); Sodium Level 142 mmol/L (136-145)
[2018-09-11 07:13] LABS: Eosinophil 1 % (0-5); Lymphocyte 13 % (19-41); Metamyelocyte 4 % (0-1); Monocyte 6 % (0-10); Neutrophil-Segmented 76 % (47-70); Total Cells Counted 100 (MANUAL DIFF)
[2018-09-11 07:14] LABS: Platelet Estimate ADEQUATE (ADEQ); Red Cell Morphology NORM C+C NORMAL (NORM C&C)
[2018-09-11 07:15] LABS: Absolute Neutrophil Count 5.2 X10^3/uL (2.0-7.7)
--- NOTE | 2018-09-11 10:02 | PCM.PN.HOSP ---
Patient Problems: Active and Suspected Problems (Last Updated 09/07/18 @ 23:57 by Ryan Yu MD) Aspiration pneumonia (Acute) UTI (urinary tract infection) (Acute) MRSA bacteremia (Acute) Subjective: Patient seen and examined. He denied any complaints but then would not answer many of my questions. Unable to do complains review of systems on account of patient not really answering questions. Labs and vitals reviewed. TTE done yesterday was negative for any vegetations. Vitals/I&O's: Vital Signs Temp Pulse Resp BP Pulse Ox 97.7 F L 90 18 119/63 95 09/11/18 08:30 09/11/18 08:51 09/11/18 08:30 09/11/18 08:30 09/11/18 07:36 Oxygen Flow Rate (L/min) 3 Oxygen Delivery Method Room Air Weight: 135 lb 5.01 oz Body Mass Index (BMI) 20.0 Intake and Output for Last 24 Hours 09/09/18 09/10/18 09/11/18 23:59 23:59 23:59 Intake Total 3088 / 3088 2064 / 2064 1081 / 1081 Output Total 2400 / 2400 2250 / 2250 1350 / 1350 Balance 688 / 688 -186 / -186 -269 / -269 General: Alert, Cooperative, still mildly confused but able to answer questions. HEENT: Atraumatic, PERRLA, EOMI, Normocephalic Oral: Dry Mucosa Neck: Supple, No JVD, Negative Carotid Bruits Lungs: Clear to auscultation, Normal air movement, No rhonchi, No wheeze, No rales Cardiovascular: Regular rate, Regular Rhythm, Normal S1, Normal S2, No murmurs Abdomen: Bowel Sounds Present, Soft, Non Tender, Non-Distended, No Hepato-splenomegaly Extremities: No clubbing, No cyanosis, No edema, Capillary Refill Less than 3 Seconds Skin: No rashes, No breakdown Musculoskeletal: No Tenderness to Palpation of Joints or Extremities Lymphatic: No Cervical, Supraclavicular, or Inguinal Adenopathy Neurological: Cranial nerves II-XII grossly intact, Neuro grossly intact Psych/Mental Status: Normal Affect, Appropriate Microbiology Past 72 Hours 09/07/18 21:50 Blood Culture (Wb) - Anticubital Left Blood Culture - Preliminary Meth. resistant Staph. aureus 09/07/18 21:55 Blood Culture (Wb) - Anticubital Right Blood Culture - Final Staphylococcus aureus 09/07/18 22:10 Urine Catheter - Mullen Urine Culture - Final Staphylococcus aureus Mixed Gram Positive Organisms Laboratory Results 09/10/18 10:30: Vancomycin Trough 4.9 L 09/11/18 05:50: WBC 6.9, RBC 4.08 L, Hgb 11.9 L, Hct 37.5 L, MCV 91.9, MCH 29.2, MCHC 31.7 L, RDW 12.5, RDW Differential 41.0, Plt Count 206, MPV 8.0, Neut % (Auto) Not Reportable, Absolute Neuts (auto) 5.2, Absolute Lymphs (auto) 0.90, Total Counted 100, Neutrophils % (Manual) 76 H, Lymphocytes % (Manual) 13 L, Monocytes % (Manual) 6, Eosinophils % (Manual) 1, Metamyelocytes % 4 H, Diff Path Review November, Platelet Estimate ADEQUATE, RBC Morphology NORM C+C 09/11/18 05:50: Sodium 142, Potassium 3.8, Chloride 109 H, Carbon Dioxide 25.0, Anion Gap 8, BUN 18, Creatinine 0.58 L, Estim Creat Clear Calc 52.00, Est GFR (MDRD) Af Amer 173, Est GFR (MDRD) Non-Af 143, BUN/Creatinine Ratio 31.0 H, Glucose 89, Calcium 8.6 Current Medications Acetaminophen (Tylenol) 650 mg PO Q6H PRN PRN PRN Reason: FEVER OF 100.4 OR HEADACHE Last Admin: 09/09/18 04:41 Dose: 650 mg Albuterol Sulfate (Ventolin Aerosols) 2.5 mg INHALATION Q2H PRN PRN PRN Reason: SHORTNESS OF BREATH Bisacodyl (Dulcolax) 5 mg PO DAILY PRN PRN PRN Reason: Constipation Finasteride (Proscar) 5 mg PO DAILY [facility] Last Admin: 09/10/18 09:27 Dose: 5 mg Haloperidol Lactate (Haldol) 0.5 mg IM Q4H PRN PRN PRN Reason: AGITATION Last Admin: 09/11/18 04:36 Dose: 0.5 mg Heparin Sodium (Porcine) (Heparin Na) 5,000 unit SC Q8 [facility] Last Admin: 09/11/18 05:31 Dose: 5,000 unit Sodium Chloride () 250 mls @ 15 mls/hr IV .[id number] PRN PRN Reason: SALINE FLUSH Last Admin: 09/10/18 05:25 Dose: 15 mls/hr Vancomycin IV Pharmacy to Dose (1,500 ea/ Sodium Chloride) 500 mls @ 250 mls/hr IV PRN PRN; Protocol PRN Reason: PHARMACY TO DOSE Vancomycin HCl 1,250 mg/ (Sodium Chloride) 275 mls @ 167 mls/hr IV Q12H [facility] Last Admin: 09/10/18 22:02 Dose: 167 mls/hr Lisinopril (Zestril) 2.5 mg PO DAILY [facility] Last Admin: 09/10/18 09:27 Dose: 2.5 mg Lorazepam (Ativan) 0.25 mg PO QHS [facility] Last Admin: 09/11/18 00:21 Dose: 0.25 mg Magnesium Hydroxide (Milk Of Magnesia) 30 ml PO DAILY PRN PRN PRN Reason: Constipation Mupirocin (Bactroban) 1 applic NASAL BID [facility]; Protocol Stop: 09/13/18 22:01 Last Admin: 09/10/18 22:03 Dose: 1 applicatio Nutritional Formula (Lactose Free) (Ensure Enlive) 120 ml PO 4X/DAY [facility] Last Admin: 09/10/18 22:03 Dose: Not Given Ondansetron HCl (Zofran) 4 mg IV Q8H PRN PRN PRN Reason: NAUSEA Risperidone (Risperdal) 0.5 mg PO QHS [facility] Last Admin: 09/10/18 22:03 Dose: 0.5 mg Sodium Chloride () 5 - 15 ml IV UD PRN PRN Reason: SALINE FLUSH Last Admin: 09/10/18 10:31 Dose: 10 ml Tamsulosin HCl (Flomax) 0.8 mg PO DAILY@1730 [facility] Last Admin: 09/10/18 17:56 Dose: 0.8 mg Trazodone HCl (Desyrel) 100 mg PO QHS [facility] Last Admin: 09/10/18 22:02 Dose: 100 mg Valproic Acid (Depakene) 125 mg PO BID [facility] Last Admin: 09/10/18 22:02 Dose: 125 mg Medical Necessity - Tobacco Use Smoking Status: Former smoker Assessment/Plan All Active Problems (Last Updated 09/07/18 @ 23:57 by Ryan Yu MD) Aspiration pneumonia (Acute) UTI (urinary tract infection) (Acute) MRSA bacteremia (Acute) 1. MRSA bacteremia due to UTI and aspiration pneumonia both sets of blood cultured on admission grew Staph, with one growing MRSA. Urine grew Staph aureus and mixed gram positive organisms. ID on board on IV vancomycin 2D echo was negative for any vegetations. Per discussion with ID, o/a of patient's severe dementia and debilitated state, will not do a TORREY to assess further for vegetations as it wont really change the management. repeat blood cultures pending. If negative after at least 48 hours, will get PICC line for prolonged course of IV vancomycin. 2. Acute metabolic encephalopathy due to UTI Resolving. Patient still remains confused but he does have dementia and so he is back to his baseline. will monitor 3. Acute hypoxic respiratory failure due to aspiration pneumonia Resolved. He is now off oxygen. On breathing treatments; on IV vancomycin. 4. Aspiration pneumonia: CXR was negative. now on IV vancomycin o/a of blood cultures. 5. Acute complicated UTI has history of Mullen catheter usage chronically. Had recently been treated on outpatient basis with Macrobid. urine cultured staph aureus and mixed gram-positive organisms. Cultured MRSA on IV Vancomycin. ID on board o/a of MRSA bacteremia. 6. BPH: Status post Mullen catheter. On Proscar and Flomax 7. Dementia with behavioral disturbance Is a resident in the dementia locked unit. On Depakote, Risperdal and trazodone. on ativan 0.25mg qhs. 8. ANNE: resolved. DVT prophylaxis: heparin Code Visit Inpatient E&M: 80442 Subs Hosp L2
--- NOTE | 2018-09-11 10:08 | PN_ITS ---
Patient Problems: Active and Suspected Problems (Last Updated 09/07/18 @ 23:57 by Ryan Yu MD) Aspiration pneumonia (Acute) UTI (urinary tract infection) (Acute) MRSA bacteremia (Acute) Subjective: Patient seen and examined. He denied any complaints but then would not answer many of my questions. Unable to do complains review of systems on account of patient not really answering questions. Labs and vitals reviewed. TTE done yesterday was negative for any vegetations. Vitals/I&O's: Vital Signs Temp Pulse Resp BP Pulse Ox 97.7 F L 90 18 119/63 95 09/11/18 08:30 09/11/18 08:51 09/11/18 08:30 09/11/18 08:30 09/11/18 07:36 Oxygen Flow Rate (L/min) 3 Oxygen Delivery Method Room Air Weight: 135 lb 5.01 oz Body Mass Index (BMI) 20.0 Intake and Output for Last 24 Hours 09/09/18 09/10/18 09/11/18 23:59 23:59 23:59 Intake Total 3088 / 3088 2064 / 2064 1081 / 1081 Output Total 2400 / 2400 2250 / 2250 1350 / 1350 Balance 688 / 688 -186 / -186 -269 / -269 General: Alert, Cooperative, still mildly confused but able to answer questions. HEENT: Atraumatic, PERRLA, EOMI, Normocephalic Oral: Dry Mucosa Neck: Supple, No JVD, Negative Carotid Bruits Lungs: Clear to auscultation, Normal air movement, No rhonchi, No wheeze, No rales Cardiovascular: Regular rate, Regular Rhythm, Normal S1, Normal S2, No murmurs Abdomen: Bowel Sounds Present, Soft, Non Tender, Non-Distended, No Hepato- splenomegaly Extremities: No clubbing, No cyanosis, No edema, Capillary Refill Less than 3 Seconds Skin: No rashes, No breakdown Musculoskeletal: No Tenderness to Palpation of Joints or Extremities Lymphatic: No Cervical, Supraclavicular, or Inguinal Adenopathy Neurological: Cranial nerves II-XII grossly intact, Neuro grossly intact Psych/Mental Status: Normal Affect, Appropriate Microbiology Past 72 Hours 09/07/18 21:50 Blood Culture (Wb) - Anticubital Left Blood Culture - Preliminary Meth. resistant Staph. aureus 09/07/18 21:55 Blood Culture (Wb) - Anticubital Right Blood Culture - Final Staphylococcus aureus 09/07/18 22:10 Urine Catheter - Mullen Urine Culture - Final Staphylococcus aureus Mixed Gram Positive Organisms Laboratory Results 09/10/18 10:30: Vancomycin Trough 4.9 L 09/11/18 05:50: WBC 6.9, RBC 4.08 L, Hgb 11.9 L, Hct 37.5 L, MCV 91.9, MCH 29.2, MCHC 31.7 L, RDW 12.5, RDW Differential 41.0, Plt Count 206, MPV 8.0, Neut % (Auto) Not Reportable, Absolute Neuts (auto) 5.2, Absolute Lymphs (auto) 0.90, Total Counted 100, Neutrophils % (Manual) 76 H, Lymphocytes % (Manual) 13 L, Monocytes % (Manual) 6, Eosinophils % (Manual) 1, Metamyelocytes % 4 H, Diff Path Review November, Platelet Estimate ADEQUATE, RBC Morphology NORM C+C 09/11/18 05:50: Sodium 142, Potassium 3.8, Chloride 109 H, Carbon Dioxide 25.0, Anion Gap 8, BUN 18, Creatinine 0.58 L, Estim Creat Clear Calc 52.00, Est GFR (MDRD) Af Amer 173, Est GFR (MDRD) Non-Af 143, BUN/Creatinine Ratio 31.0 H, Glucose 89, Calcium 8.6 Current Medications Acetaminophen (Tylenol) 650 mg PO Q6H PRN PRN PRN Reason: FEVER OF 100.4 OR HEADACHE Last Admin: 09/09/18 04:41 Dose: 650 mg Albuterol Sulfate (Ventolin Aerosols) 2.5 mg INHALATION Q2H PRN PRN PRN Reason: SHORTNESS OF BREATH Bisacodyl (Dulcolax) 5 mg PO DAILY PRN PRN PRN Reason: Constipation Finasteride (Proscar) 5 mg PO DAILY [facility] Last Admin: 09/10/18 09:27 Dose: 5 mg Haloperidol Lactate (Haldol) 0.5 mg IM Q4H PRN PRN PRN Reason: AGITATION Last Admin: 09/11/18 04:36 Dose: 0.5 mg Heparin Sodium (Porcine) (Heparin Na) 5,000 unit SC Q8 [facility] Last Admin: 09/11/18 05:31 Dose: 5,000 unit Sodium Chloride () 250 mls @ 15 mls/hr IV .[id number] PRN PRN Reason: SALINE FLUSH Last Admin: 09/10/18 05:25 Dose: 15 mls/hr Vancomycin IV Pharmacy to Dose (1,500 ea/ Sodium Chloride) 500 mls @ 250 mls/hr IV PRN PRN; Protocol PRN Reason: PHARMACY TO DOSE Vancomycin HCl 1,250 mg/ (Sodium Chloride) 275 mls @ 167 mls/hr IV Q12H [facility] Last Admin: 09/10/18 22:02 Dose: 167 mls/hr Lisinopril (Zestril) 2.5 mg PO DAILY [facility] Last Admin: 09/10/18 09:27 Dose: 2.5 mg Lorazepam (Ativan) 0.25 mg PO QHS [facility] Last Admin: 09/11/18 00:21 Dose: 0.25 mg Magnesium Hydroxide (Milk Of Magnesia) 30 ml PO DAILY PRN PRN PRN Reason: Constipation Mupirocin (Bactroban) 1 applic NASAL BID [facility]; Protocol Stop: 09/13/18 22:01 Last Admin: 09/10/18 22:03 Dose: 1 applicatio Nutritional Formula (Lactose Free) (Ensure Enlive) 120 ml PO 4X/DAY [facility] Last Admin: 09/10/18 22:03 Dose: Not Given Ondansetron HCl (Zofran) 4 mg IV Q8H PRN PRN PRN Reason: NAUSEA Risperidone (Risperdal) 0.5 mg PO QHS [facility] Last Admin: 09/10/18 22:03 Dose: 0.5 mg Sodium Chloride () 5 - 15 ml IV UD PRN PRN Reason: SALINE FLUSH Last Admin: 09/10/18 10:31 Dose: 10 ml Tamsulosin HCl (Flomax) 0.8 mg PO DAILY@1730 [facility] Last Admin: 09/10/18 17:56 Dose: 0.8 mg Trazodone HCl (Desyrel) 100 mg PO QHS [facility] Last Admin: 09/10/18 22:02 Dose: 100 mg Valproic Acid (Depakene) 125 mg PO BID [facility] Last Admin: 09/10/18 22:02 Dose: 125 mg Medical Necessity - Tobacco Use Smoking Status: Former smoker Assessment/Plan All Active Problems (Last Updated 09/07/18 @ 23:57 by Ryan Yu MD) Aspiration pneumonia (Acute) UTI (urinary tract infection) (Acute) MRSA bacteremia (Acute) 1. MRSA bacteremia due to UTI and aspiration pneumonia * both sets of blood cultured on admission grew Staph, with one growing MRSA. Urine grew Staph aureus and mixed gram positive organisms. * ID on board * on IV vancomycin * 2D echo was negative for any vegetations. Per discussion with ID, o/a of patient's severe dementia and debilitated state, will not do a TORREY to assess further for vegetations as it wont really change the management. * repeat blood cultures pending. If negative after at least 48 hours, will get PICC line for prolonged course of IV vancomycin. 2. Acute metabolic encephalopathy due to UTI * Resolving. Patient still remains confused but he does have dementia and so he is back to his baseline. * will monitor * 3. Acute hypoxic respiratory failure due to aspiration pneumonia * Resolved. He is now off oxygen. * On breathing treatments; on IV vancomycin. 4. Aspiration pneumonia: CXR was negative. now on IV vancomycin o/a of blood cultures. 5. Acute complicated UTI * has history of Mullen catheter usage chronically. Had recently been treated on outpatient basis with Macrobid. * urine cultured staph aureus and mixed gram-positive organisms. * Cultured MRSA * on IV Vancomycin. ID on board o/a of MRSA bacteremia. 6. BPH: Status post Mullen catheter. On Proscar and Flomax 7. Dementia with behavioral disturbance * Is a resident in the dementia locked unit. On Depakote, Risperdal and trazodone. * on ativan 0.25mg qhs. * 8. ANNE: resolved. DVT prophylaxis: heparin Code Visit Inpatient E&M: 93745 Subs Hosp L2
[2018-09-11] MEDS: 0.9% NaCl Peripheral Flush Adult/Peds IV ×2 (11:14→17:54)
[2018-09-11] MEDS: Mupirocin Ointment 22gm Tube 1 APPLIC NASAL ×2 (11:26→22:08)
[2018-09-11] MEDS: Lisinopril 2.5 MG Tablet PO (11:27)
[2018-09-11] MEDS: Finasteride 5 MG Tablet PO (11:29)
--- NOTE | 2018-09-11 13:25 | CASEMGMT ---
Social Work Note Physician is not discharging pt today. MARITZA faxed updated clinicals to Livier at [facility], informed Livier pt is not discharging today. Plan: [facility] once medically cleared Liz Do LANDING WORKER, FRAME RUNNER
--- NOTE | 2018-09-11 13:35 | PCM.PN.ID ---
Patient Problems: Active and Suspected Problems (Last Updated 09/07/18 @ 23:57 by Ryan Yu MD) Aspiration pneumonia (Acute) UTI (urinary tract infection) (Acute) MRSA bacteremia (Acute) Subjective: Stable, no fever, at bedside. - Physical Exam General: Alert, Cooperative, No apparent distress Lungs: Clear to auscultation, Normal air movement Cardiovascular: Regular rate, Regular Rhythm Abdomen: Soft, Non Tender, Non-Distended Skin: No rashes Vital Signs Temp Pulse Resp BP Pulse Ox 97.7 F L 90 18 119/63 95 09/11/18 08:30 09/11/18 08:51 09/11/18 08:30 09/11/18 08:30 09/11/18 07:36 Oxygen Flow Rate (L/min) 3 Oxygen Delivery Method Room Air Weight: 61.377 kg Body Mass Index (BMI) 20.0 Intake and Output for Last 24 Hours 09/09/18 09/10/18 09/11/18 23:59 23:59 23:59 Intake Total 3088 / 3088 2064 / 2064 1731 / 1731 Output Total 2400 / 2400 2250 / 2250 1350 / 1350 Balance 688 / 688 -186 / -186 381 / 381 Microbiology Past 72 Hours 09/07/18 21:50 Blood Culture - Preliminary Blood Culture (Wb) - Anticubital Left Meth. resistant Staph. aureus 09/07/18 21:55 Blood Culture - Final Blood Culture (Wb) - Anticubital Right Staphylococcus aureus 09/07/18 22:10 Urine Culture - Final Urine Catheter - Daly Staphylococcus aureus Mixed Gram Positive Organisms Laboratory Tests Past 24 Hrs 09/11/18 09/11/18 05:50 05:50 WBC 6.9 RBC 4.08 L Hgb 11.9 L Hct 37.5 L MCV 91.9 MCH 29.2 MCHC 31.7 L RDW 12.5 RDW Differential 41.0 Plt Count 206 MPV 8.0 Neut % (Auto) Not Reportable Absolute Neuts (auto) 5.2 Absolute Lymphs (auto) 0.90 Total Counted 100 Neutrophils % (Manual) 76 H Lymphocytes % (Manual) 13 L Monocytes % (Manual) 6 Eosinophils % (Manual) 1 Metamyelocytes % 4 H Diff Path Review May foll Platelet Estimate ADEQUATE RBC Morphology NORM C+C Sodium 142 Potassium 3.8 Chloride 109 H Carbon Dioxide 25.0 Anion Gap 8 BUN 18 Creatinine 0.58 L Estim Creat Clear Calc 52.00 Est GFR (MDRD) Af Amer 173 Est GFR (MDRD) Non-Af 143 BUN/Creatinine Ratio 31.0 H Glucose 89 Calcium 8.6 Medical Necessity - Tobacco Use Smoking Status: Former smoker Route of nutrition/ use of supplements: [] Nutritional Intake: [] IV Site: [] Daly Catheter: [] - Assessment/Plan Antibiotics: [] Assessment/Plan: [] Active and Suspected Problems (Last Updated 09/07/18 @ 23:57 by Ryan Yu MD) Aspiration pneumonia (Acute) UTI (urinary tract infection) (Acute) MRSA bacteremia - cxr clear, ucx neg. Unclear source of mrsa. Has chronic daly. In ECF for dementia. Continue vanc. Echo done. Plan is for picc tomorrow then 4 weeks of iv abx. Will follow
--- NOTE | 2018-09-11 14:38 | NURSING ---
reviewed student nurse Dianelys's charting for educational learning purposes by marin shaw
--- NOTE | 2018-09-11 15:48 | CHAPLAIN ---
Type of Pastoral Visit _x__ Initial Visit ___ Follow-up Visit ___ On-call Visit ___ General Patient Visit ___ Spiritual Assessment ___ Family Conference ___ Bereavement ___ Rapid Response ___ Code Blue ___ Other (describe below) Pastoral Care Referral From ___ Patient _x__ Family ___ Nurse ___ Physician ___ Auto Camp Attendant ___ Radar Systems Engineer ___ Other (describe below) Sacrament/Intervention _x__ Active listening ___ Anointing ___ Episcopalian ___ Bereavement ___ Communion ___ Yi exploration ___ _x__ Life review _x__ Prayer ___ Reconciliation ___ Sacrament of Sick _x__ Supportive presence ___ Wedding ___ Other (describe below) Pastoral Comments spouse is with patient; spouse explains that pt has dementia and is a resident at [facility]; pt does not talk; pt only interaction is to look at relocation associate when speaking but does not attempt to interact otherwise; spouse welcomes presence and prayer
[2018-09-11] MEDS: Tamsulosin HCl 0.4 MG Capsule 0.8 MG PO (17:50)
[2018-09-11] MEDS: traZODone 100 MG Tablet PO (22:08)
[2018-09-11] MEDS: RisperiDONE 0.5 MG Tablet PO (22:11)
[2018-09-12 03:18] VITALS: BP 137/64; PULSE 76; RESP 18; TEMP 36.6; O2SAT 96
[2018-09-12] MEDS: Heparin Injection (Vial) 5,000 UNIT/ML VIAL 5000 UNIT SC ×2 (05:50→13:37)
[2018-09-12 06:29] LABS: Anion Gap 11 (5-15); BUN 22 mg/dL (7-18); BUN/Creat Ratio 36.5 RATIO (10-20); Calcium,Total 8.3 mg/dL (8.5-10.1); Chloride 109 mmol/L (98-107); EST Glomerular Filtration Rate 137 mL/min (>60); Est Glom Filt Rate - Afr Amer 166 mL/min (>60); Estimated Creatinine Clearance 51.15 ml/min; Glucose 91 mg/dL (74-106); Potassium 3.6 mmol/L (3.5-5.1); Sodium Level 142 mmol/L (136-145)
[2018-09-12 06:58] LABS: Hematocrit 38.9 % (40-54); Hemoglobin 11.8 g/dl (13.0-16.5); Mean Corp Hgb Conc 30.3 g/gl (32-36); Mean Corpuscular Hgb 28.4 pg (27.0-32.0); Mean Corpuscular Volume 93.7 fL (80-94); Mean Platelet Vol. 8.3 fl (6.2-12.0); Platelet Count 181 K/mm3 (150-450); RBC Distribution Width CV 13.2 % (11.6-14.6); RBC Distribution Width SD 44.7 fl (35.1-43.9); Red Blood Count 4.15 M/mm3 (4.6-6.2); White Blood Count 8.7 K/mm3 (4.4-11.0)
[2018-09-12 06:59] LABS: Differential Indicated MANUAL DIFF; POSITIVE COUNT YES; POSITIVE DIFFERENTIAL NO; POSITIVE MORPHOLOGY YES
[2018-09-12 08:00] LABS: Eosinophil 2 % (0-5); Lymphocyte 11 % (19-41); Monocyte 12 % (0-10); Myelocyte 2 (0-0); Neutrophil-Segmented 73 % (47-70); Total Cells Counted 100 (MANUAL DIFF)
[2018-09-12 08:02] LABS: Platelet Estimate ADEQUATE (ADEQ); Red Cell Morphology NORM C+C NORMAL (NORM C&C)
[2018-09-12 08:03] LABS: Absolute Lymphocyte Count 0.95 X10^3/ul (0.83-4.51); Absolute Neutrophil Count 6.4 X10^3/uL (2.0-7.7)
[2018-09-12 09:05] LABS: Pathologist Review Reviewed
[2018-09-12 09:44] VITALS: BP 123/64; PULSE 79; RESP 14; TEMP 36.7; O2SAT 98
[2018-09-12] MEDS: Lisinopril 2.5 MG Tablet PO (09:49)
[2018-09-12] MEDS: Finasteride 5 MG Tablet PO (09:49)
[2018-09-12] MEDS: Mupirocin Ointment 22gm Tube 1 APPLIC NASAL (09:50)
[2018-09-12] MEDS: Acetaminophen 325 MG Tablet 650 MG PO (09:58)
--- NOTE | 2018-09-12 10:13 | PCM.PN.ID ---
Patient Problems: Active and Suspected Problems (Last Updated 09/07/18 @ 23:57 by Ryan Yu MD) Aspiration pneumonia (Acute) UTI (urinary tract infection) (Acute) MRSA bacteremia (Acute) Subjective: No events overnight, no fever. - Physical Exam General: No apparent distress Lungs: Clear to auscultation, Normal air movement Cardiovascular: Regular rate, Regular Rhythm, Murmur Abdomen: Soft, Non Tender, Non-Distended Skin: No rashes Vital Signs Temp Pulse Resp BP Pulse Ox 98.0 F 79 14 123/64 H 98 09/12/18 09:44 09/12/18 09:44 09/12/18 09:44 09/12/18 09:44 09/12/18 09:44 Oxygen Flow Rate (L/min) 3 Oxygen Delivery Method Room Air Weight: 61.377 kg Body Mass Index (BMI) 20.0 Intake and Output for Last 24 Hours 09/10/18 09/11/18 09/12/18 23:59 23:59 23:59 Intake Total 2064 / 2064 2211 / 2211 200 / 200 Output Total 2250 / 2250 1850 / 1850 700 / 700 Balance -186 / -186 361 / 361 -500 / -500 Microbiology Past 72 Hours 09/10/18 10:05 Blood Culture - Preliminary Blood Culture (Wb) - Right Forearm No growth in 48 hours. 09/07/18 21:50 Blood Culture - Preliminary Blood Culture (Wb) - Anticubital Left Meth. resistant Staph. aureus 09/07/18 21:55 Blood Culture - Final Blood Culture (Wb) - Anticubital Right Staphylococcus aureus 09/07/18 22:10 Urine Culture - Final Urine Catheter - Daly Staphylococcus aureus Mixed Gram Positive Organisms Laboratory Tests Past 24 Hrs 09/11/18 09/12/18 09/12/18 05:50 05:32 05:32 WBC 8.7 RBC 4.15 L Hgb 11.8 L Hct 38.9 L MCV 93.7 MCH 28.4 MCHC 30.3 L RDW 13.2 RDW Differential 44.7 H Plt Count 181 MPV 8.3 Neut % (Auto) Not Reportable Absolute Neuts (auto) 6.4 Absolute Lymphs (auto) 0.95 Total Counted 100 Neutrophils % (Manual) 73 H Lymphocytes % (Manual) 11 L Monocytes % (Manual) 12 H Eosinophils % (Manual) 2 Myelocytes % 2 H Diff Path Review Reviewed May foll Platelet Estimate ADEQUATE RBC Morphology NORM C+C Sodium 142 Potassium 3.6 Chloride 109 H Carbon Dioxide 22.0 Anion Gap 11 BUN 22 H Creatinine 0.60 L Estim Creat Clear Calc 51.15 Est GFR (MDRD) Af Amer 166 Est GFR (MDRD) Non-Af 137 BUN/Creatinine Ratio 36.5 H Glucose 91 Calcium 8.3 L Vancomycin Trough 09/12/18 09:56 WBC RBC Hgb Hct MCV MCH MCHC RDW RDW Differential Plt Count MPV Neut % (Auto) Absolute Neuts (auto) Absolute Lymphs (auto) Total Counted Neutrophils % (Manual) Lymphocytes % (Manual) Monocytes % (Manual) Eosinophils % (Manual) Myelocytes % Diff Path Review Platelet Estimate RBC Morphology Sodium Potassium Chloride Carbon Dioxide Anion Gap BUN Creatinine Estim Creat Clear Calc Est GFR (MDRD) Af Amer Est GFR (MDRD) Non-Af BUN/Creatinine Ratio Glucose Calcium Vancomycin Trough Pending Medical Necessity - Tobacco Use Smoking Status: Former smoker Route of nutrition/ use of supplements: [] Nutritional Intake: [] IV Site: [] Daly Catheter: [] - Assessment/Plan Antibiotics: [] Assessment/Plan: [] Active and Suspected Problems (Last Updated 09/07/18 @ 23:57 by Ryan Yu MD) Aspiration pneumonia (Acute) UTI (urinary tract infection) (Acute) MRSA bacteremia - cxr clear, ucx with staph. Unclear source of mrsa. Has chronic daly. In ECF for dementia. Continue vanc. Echo done. Plan is for picc today then 4 weeks of iv vanc, stop date 10/07/18, weekly bmp, cbc, vanc trough. Will follow
[2018-09-12 10:52] LABS: Vancomycin, Trough Level 16.5 ug/mL (5.0-15.0)
--- NOTE | 2018-09-12 11:12 | PCM.RX.CS ---
Consult Pharmacy has been consulted to manage selected antiobiotic: Vancomycin Type of Consult: Follow-up Suspected Infection: Bacteremia Prior Doses of Antibiotics Received/Current Regimen: Medications Vancomycin HCl 1,250 mg/ (Sodium Chloride) 275 mls @ 167 mls/hr IV Q12H [facility] Last Admin: 09/11/18 22:31 Dose: 167 mls/hr Labs: Sodium 142 mmol/L (136-145) 09/12/18 05:32 Potassium 3.6 mmol/L (3.5-5.1) 09/12/18 05:32 Chloride 109 mmol/L (98-107) H 09/12/18 05:32 Carbon Dioxide 22.0 mmol/L (21.0-32.0) 09/12/18 05:32 Anion Gap 11 (5-15) 09/12/18 05:32 BUN 22 mg/dL (7-18) H 09/12/18 05:32 Creatinine 0.60 mg/dL (0.70-1.30) L 09/12/18 05:32 Est GFR (MDRD) Af Amer 166 mL/min (>60) 09/12/18 05:32 Est GFR (MDRD) Non-Af 137 mL/min (>60) 09/12/18 05:32 BUN/Creatinine Ratio 36.5 RATIO (10-20) H 09/12/18 05:32 Glucose 91 mg/dL (74-106) 09/12/18 05:32 Vancomycin Trough 16.5 ug/mL (5.0-15.0) H 09/12/18 09:56 Microbiology: Microbiology 09/10/18 10:05 Blood Culture (Wb) - Right Forearm Blood Culture - Preliminary No growth in 48 hours. 09/07/18 21:50 Blood Culture (Wb) - Anticubital Left Blood Culture - Preliminary Meth. resistant Staph. aureus 09/07/18 21:55 Blood Culture (Wb) - Anticubital Right Blood Culture - Final Staphylococcus aureus 09/07/18 22:10 Urine Catheter - Mullen Urine Culture - Final Staphylococcus aureus Mixed Gram Positive Organisms 09/07/18 22:10 Urine Catheter - Catheter Streptococcus pneumoniae Antigen (M - Final 09/07/18 22:10 Urine Catheter - Catheter Legionella Antigen - Final Goal Trough: 15-20 mcg/mL Pharmacy Plan for Drug Dosing: The patient had a trough drawn which resulted in a value of 16.5 (drawn ~11.5hrs from last administered dose). Since this is within the patient's goal of 15-20 for trough values, will continue current dose. Will check a trough in 4 days to reassess dosing at that time. PLAN/RECOMMENDATIONS 1. Continue vancomycin 1250mg IV Q12hrs 2. Trough scheduled for 09/16/18 @ 1030 to reassess dosing regimen 3.Pharmacy Service will continue to monitor and adjust dosing as required.
[2018-09-12] MEDS: 0.9% NaCl Peripheral Flush Adult/Peds IV (13:36)
[2018-09-12 13:45] VITALS: BP 115/61; PULSE 77; RESP 14; TEMP 36.5; O2SAT 98
--- NOTE | 2018-09-12 13:54 | PCM.TXEXTCAR ---
- Diet 09/09/18 16:01 Diet: Regular Diet Food consistency:: Mechanical Soft/Ground Liquid Consistency:: [place] Thick Dietary Modifications:: [place] Thick Liquids Pureed Diet Mechanical Soft Diet Is pt able to select menu?: No Diet Comments: [facility] soft textures w/ PUREED MEATS, supervised intake - Routine Orders/Code Status Enema Type: Fleetz Enema Frequency: Daily PRN Suppository Type: Dulcolax 10mg Suppository Frequency: Daily PRN Routine Lab Work: - - BMP, CBC with diff, Vanco trough weekly while on the Vancomycin - results to Dr. Yonatan Harvey - Problem/Diagnosis (1) Encephalopathy due to infection Status: Acute Current Visit: Yes (2) Dementia with behavioral disturbance Status: Chronic Current Visit: Yes (3) BPH (benign prostatic hyperplasia) Status: Chronic Current Visit: Yes (4) Acute respiratory failure with hypoxemia Status: Ruled-out Current Visit: Yes (5) Acute renal failure Status: Acute Current Visit: Yes (6) Normochromic normocytic anemia Status: Acute Current Visit: Yes (7) Hypertension Status: Chronic Current Visit: Yes (8) Seizure disorder Status: Suspected Comment: he is on Depakote......he does not know why Current Visit: Yes (9) Aspiration pneumonia Status: Acute Current Visit: Yes (10) MRSA bacteremia Status: Acute Current Visit: Yes (11) UTI (urinary tract infection) Status: Acute Current Visit: Yes (12) Mild aortic stenosis Status: Chronic Current Visit: Yes (13) Mitral valve prolapse Status: Chronic Current Visit: Yes - Allergies/Procedures Done in Hospital Allergies/Adverse Reactions: Allergies Penicillins Adverse Reaction (Verified 09/08/18 06:31) Unknown HTN, high heart rate, n/v Procedures: 2-D Echocardiogram - Interpretation Summary Left ventricular systolic function is normal. The estimated ejection fraction is 65 %. Mild diffuse mitral valve thickening. Mild mitral valve prolapse, posterior leaflet Mild (1+) eccentric mitral valve insufficiency. Mild diffuse thickening of the tricuspid valve. Mild tricuspid valve insufficiency. Mild aortic stenosis. Trivial aortic valve insufficiency. Mild (1+) pulmonic valve insufficiency. Trivial pericardial effusion. There are no echocardiographic indications of cardiac tamponade. Right ventricular systolic pressure estimated to be 29 mmHg. No evidence for diastolic dysfunction., PICC line placement - Type of Care/Length of Stay Estimated LOS: More Than 30 Days Type of Care Needed: Skilled Rehab Potential: Poor Prognosis: Fair - Additional Orders/Day of Discharge Additional Orders: CBC with differential, BMP, vancomycin trough weekly while on vancomycin -results to be sent to Dr. Yonatan Harvey H&P will serve as current which was dated: 09/07/18 Day of Discharge: 09/12/18 - Dietary and Speech Recommendations Dietitian Recommendations/Changes: Rec regular diet- consistency per BAR HOST. Continue Ensure Enlive w/ medpass when PO diet appropriate. - Follow Up Care Primary Care Physician: Emanuel Nelson MD [Primary Care Provider] - Please follow up with your Primary Care Physician in: 2 weeks
--- NOTE | 2018-09-12 14:00 | TREXTCAR_ITS ---
- Diet 09/09/18 16:01 Diet: Regular Diet Food consistency:: Mechanical Soft/Ground Liquid Consistency:: [place] Thick Dietary Modifications:: [place] Thick Liquids Pureed Diet Mechanical Soft Diet Is pt able to select menu?: No Diet Comments: [facility] soft textures w/ PUREED MEATS, supervised intake - Routine Orders/Code Status Enema Type: Fleetz Enema Frequency: Daily PRN Suppository Type: Dulcolax 10mg Suppository Frequency: Daily PRN Routine Lab Work: - - BMP, CBC with diff, Vanco trough weekly while on the Vancomycin - results to Dr. Yonatan Harvey - Problem/Diagnosis (1) Encephalopathy due to infection Status: Acute Current Visit: Yes (2) Dementia with behavioral disturbance Status: Chronic Current Visit: Yes (3) BPH (benign prostatic hyperplasia) Status: Chronic Current Visit: Yes (4) Acute respiratory failure with hypoxemia Status: Ruled-out Current Visit: Yes (5) Acute renal failure Status: Acute Current Visit: Yes (6) Normochromic normocytic anemia Status: Acute Current Visit: Yes (7) Hypertension Status: Chronic Current Visit: Yes (8) Seizure disorder Status: Suspected Comment: he is on Depakote......he does not know why Current Visit: Yes (9) Aspiration pneumonia Status: Acute Current Visit: Yes (10) MRSA bacteremia Status: Acute Current Visit: Yes (11) UTI (urinary tract infection) Status: Acute Current Visit: Yes (12) Mild aortic stenosis Status: Chronic Current Visit: Yes (13) Mitral valve prolapse Status: Chronic Current Visit: Yes - Allergies/Procedures Done in Hospital Allergies/Adverse Reactions: Allergies Penicillins Adverse Reaction (Verified 09/08/18 06:31) Unknown HTN, high heart rate, n/v Procedures: 2-D Echocardiogram - Interpretation Summary Left ventricular systolic function is normal. The estimated ejection fraction is 65 %. Mild diffuse mitral valve thickening. Mild mitral valve prolapse, posterior leaflet Mild (1+) eccentric mitral valve insufficiency. Mild diffuse thickening of the tricuspid valve. Mild tricuspid valve insufficiency. Mild aortic stenosis. Trivial aortic valve insufficiency. Mild (1+) pulmonic valve insufficiency. Trivial pericardial effusion. There are no echocardiographic indications of cardiac tamponade. Right ventricular systolic pressure estimated to be 29 mmHg. No evidence for diastolic dysfunction., PICC line placement - Type of Care/Length of Stay Estimated LOS: More Than 30 Days Type of Care Needed: Skilled Rehab Potential: Poor Prognosis: Fair - Additional Orders/Day of Discharge Additional Orders: CBC with differential, BMP, vancomycin trough weekly while on vancomycin -results to be sent to Dr. Yonatan Harvey H&P will serve as current which was dated: 09/07/18 Day of Discharge: 09/12/18 - Dietary and Speech Recommendations Dietitian Recommendations/Changes: Rec regular diet- consistency per AUTOMOTIVE GLASS INSTALLER. Continue Ensure Enlive w/ medpass when PO diet appropriate. - Follow Up Care Primary Care Physician: Emanuel Nelson MD [Primary Care Provider] - Please follow up with your Primary Care Physician in: 2 weeks
--- NOTE | 2018-09-12 14:10 | PCM.DC.SUM ---
Discharge Date and Diagnosis Date of Admission: 09/07/18 Date of Discharge: 09/12/18 - Primary Discharge Diagnosis Active and Suspected Problems (Last Updated 09/07/18 @ 23:57 by Ryan Yu MD) Aspiration pneumonia (Acute) - suspected UTI (urinary tract infection) (Acute) - SA MRSA bacteremia (Acute) - source undetermined Encephalopathy due to infection (Acute) - resolved Acute renal failure (Acute)-resolved Normochromic normocytic anemia (Acute) Dehydration - Secondary Discharge Diagnosis Chronic Problems (Last Updated 09/07/18 @ 23:57 by Ryan Yu MD) Dementia with behavioral disturbance (Chronic) - on Depakote BPH (benign prostatic hyperplasia) (Chronic) Hypertension (Chronic) Mild aortic stenosis (Chronic) Mitral valve prolapse (Chronic) Hospital Course and Treatment Imaging Results: Clinical Impression(s) from Imaging Studies Brain CT 09/07/18 21:39 IMPRESSION: 1. Chronic right basal ganglia lacunar infarct. 2. Microvascular ischemia. Atrophy. 3. 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 ENT evaluation is advised. Electronically Signed: Ruth Barrios MD at 23:01 EST Tel , Service support , Cervical Spine CT 09/07/18 21:39 IMPRESSION: Normal alignment of the cervical spine without acute fracture deformity. Degenerative disc and joint changes as stated above. Bilateral carotid artery calcifications. Electronically Signed: Mavis Peña MD at 23:40 EST , Service support , Chest X-Ray 09/07/18 21:47 IMPRESSION: No acute cardiopulmonary findings or changes. Negative for major consolidation, focal atelectasis, cardiomegaly or pleural effusion. Electronically Signed: Mavis Peña MD at 23:26 EST , Service support , Chest X-Ray 09/09/18 05:55 IMPRESSION: Increased markings at the lung bases suggesting bibasilar atelectasis and/or early infiltrates worse on the right base. Electronically Signed: J Carlos Oliva MD at 11:27 EST , Service support , Laboratory Results - last 24 hr 09/11/18 09/12/18 09/12/18 05:50 05:32 05:32 WBC 8.7 RBC 4.15 L Hgb 11.8 L Hct 38.9 L MCV 93.7 MCH 28.4 MCHC 30.3 L RDW 13.2 RDW Differential 44.7 H Plt Count 181 MPV 8.3 Neut % (Auto) Not Reportable Absolute Neuts (auto) 6.4 Absolute Lymphs (auto) 0.95 Total Counted 100 Neutrophils % (Manual) 73 H Lymphocytes % (Manual) 11 L Monocytes % (Manual) 12 H Eosinophils % (Manual) 2 Myelocytes % 2 H Diff Path Review Reviewed May foll Platelet Estimate ADEQUATE RBC Morphology NORM C+C Sodium 142 Potassium 3.6 Chloride 109 H Carbon Dioxide 22.0 Anion Gap 11 BUN 22 H Creatinine 0.60 L Estim Creat Clear Calc 51.15 Est GFR (MDRD) Af Amer 166 Est GFR (MDRD) Non-Af 137 BUN/Creatinine Ratio 36.5 H Glucose 91 Calcium 8.3 L Vancomycin Trough 09/12/18 09:56 WBC RBC Hgb Hct MCV MCH MCHC RDW RDW Differential Plt Count MPV Neut % (Auto) Absolute Neuts (auto) Absolute Lymphs (auto) Total Counted Neutrophils % (Manual) Lymphocytes % (Manual) Monocytes % (Manual) Eosinophils % (Manual) Myelocytes % Diff Path Review Platelet Estimate RBC Morphology Sodium Potassium Chloride Carbon Dioxide Anion Gap BUN Creatinine Estim Creat Clear Calc Est GFR (MDRD) Af Amer Est GFR (MDRD) Non-Af BUN/Creatinine Ratio Glucose Calcium Vancomycin Trough 16.5 H Microbiology 09/07/18 21:50 Blood Culture (Wb) - Anticubital Left Blood Culture - Final Meth. resistant Staph. aureus 09/10/18 10:05 Blood Culture (Wb) - Right Forearm Blood Culture - Preliminary No growth in 48 hours. 09/07/18 21:55 Blood Culture (Wb) - Anticubital Right Blood Culture - Final Staphylococcus aureus 09/07/18 22:10 Urine Catheter - Mullen Urine Culture - Final Staphylococcus aureus Mixed Gram Positive Organisms 09/07/18 22:10 Urine Catheter - Catheter Streptococcus pneumoniae Antigen (M - Final 09/07/18 22:10 Urine Catheter - Catheter Legionella Antigen - Final Dr. Yonatan Harvey-infectious disease Operations: None Procedures: 2-D Echocardiogram - Interpretation Summary Left ventricular systolic function is normal. The estimated ejection fraction is 65 %. Mild diffuse mitral valve thickening. Mild mitral valve prolapse, posterior leaflet Mild (1+) eccentric mitral valve insufficiency. Mild diffuse thickening of the tricuspid valve. Mild tricuspid valve insufficiency. Mild aortic stenosis. Trivial aortic valve insufficiency. Mild (1+) pulmonic valve insufficiency. Trivial pericardial effusion. There are no echocardiographic indications of cardiac tamponade. Right ventricular systolic pressure estimated to be 29 mmHg. No evidence for diastolic dysfunction. Summary of Care Provided: The patient is a 78 year old M who resides in a locked psychiatric helm at [facility] with a past medical history of hypertension and BPH with chronic indwelling Mullen catheter. He was brought to the emergency department at [facility] on 09/07/2018 because of a fall. He had been started on Macrobid 2 days prior to presenting fever to the emergency room for a urinary tract infection. White blood cell count in the ER was 9.7 with 86% neutrophils. Hemoglobin was 11.9 and platelets were within normal limits. BMP was remarkable for a BUN of 44 with a creatinine of 1.11. Lactic acid was 1.5. The UA showed 0-10 WBCs per high-power field. A chest x-ray showed no infiltrates, pleural effusions or pulmonary vascular congestion. The room air saturation ranged between 84-85% and he was started on supplemental oxygen via a nasal cannula. CT scan of the brain and neck showed no acute findings. He was admitted to the hospital with a diagnosis of urinary tract infection, acute metabolic encephalopathy secondary to urinary tract infection, dehydration and probable aspiration pneumonia with acute respiratory insufficiency with hypoxemia. He also had ARF likely due to dehydration. Zosyn was started in the emergency room and continued at admission. Blood and urine cultures were sent. The blood cultures grew a methicillin-resistant staph aureus and he was started on vancomycin. A surface echocardiogram revealed no evidence of vegetation. The urine also grew staph aureus. On 09/12/2018 the temp was 97.7 and vital signs were stable. Mental status was at baseline with confusion but no severe agitation. Hemoglobin was stable at 11.8 and the white blood cell count was 8.7. He had 73% neutrophils. BUN was down to 22 and his creatinine was 0.6. He was discharged back to the shelter on intravenous vancomycin after PICC line insertion and the stop date for the vancomycin will be 10/07/2018. He needs BMP, CBC and Vanco trough weekly while on vancomycin. The source of the MRSA infection was undetermined at the time of discharge. Results of the weekly lab will be sent to Dr. Harvey. Alert but confused Lungs - CTA H- RRR, no gallop and no rub, no change in MM Abdomen-soft, nontender, nondistended, no guarding with palpation No clubbing, no cyanosis, no edema No splinter hemorrhages This note was generated with [employer] dictation software. It may contain incorrect words, spelling, and punctuation that were not noted in checking the note before signing. - Physical Exam Vital Signs Temp Pulse Resp BP Pulse Ox 97.7 F L 77 14 115/61 98 09/12/18 13:45 09/12/18 13:45 09/12/18 13:45 09/12/18 13:45 09/12/18 13:45 Oxygen Flow Rate (L/min) 3 Oxygen Delivery Method Room Air Weight: 135 lb 5.01 oz Body Mass Index (BMI) 20.0 Intake and Output for Last 24 Hours 09/10/18 09/11/18 09/12/18 23:59 23:59 23:59 Intake Total 2064 / 2064 2211 / 2211 200 / 200 Output Total 2250 / 2250 1850 / 1850 700 / 700 Balance -186 / -186 361 / 361 -500 / -500 Microbiology Past 72 Hours 09/07/18 21:50 Blood Culture - Final Blood Culture (Wb) - Anticubital Left Meth. resistant Staph. aureus 09/10/18 10:05 Blood Culture - Preliminary Blood Culture (Wb) - Right Forearm No growth in 48 hours. 09/07/18 21:55 Blood Culture - Final Blood Culture (Wb) - Anticubital Right Staphylococcus aureus 09/07/18 22:10 Urine Culture - Final Urine Catheter - Mullen Staphylococcus aureus Mixed Gram Positive Organisms Laboratory Tests Past 24 Hrs 09/11/18 09/12/18 09/12/18 05:50 05:32 05:32 WBC 8.7 RBC 4.15 L Hgb 11.8 L Hct 38.9 L MCV 93.7 MCH 28.4 MCHC 30.3 L RDW 13.2 RDW Differential 44.7 H Plt Count 181 MPV 8.3 Neut % (Auto) Not Reportable Absolute Neuts (auto) 6.4 Absolute Lymphs (auto) 0.95 Total Counted 100 Neutrophils % (Manual) 73 H Lymphocytes % (Manual) 11 L Monocytes % (Manual) 12 H Eosinophils % (Manual) 2 Myelocytes % 2 H Diff Path Review Reviewed November foll Platelet Estimate ADEQUATE RBC Morphology NORM C+C Sodium 142 Potassium 3.6 Chloride 109 H Carbon Dioxide 22.0 Anion Gap 11 BUN 22 H Creatinine 0.60 L Estim Creat Clear Calc 51.15 Est GFR (MDRD) Af Amer 166 Est GFR (MDRD) Non-Af 137 BUN/Creatinine Ratio 36.5 H Glucose 91 Calcium 8.3 L Vancomycin Trough 09/12/18 09:56 WBC RBC Hgb Hct MCV MCH MCHC RDW RDW Differential Plt Count MPV Neut % (Auto) Absolute Neuts (auto) Absolute Lymphs (auto) Total Counted Neutrophils % (Manual) Lymphocytes % (Manual) Monocytes % (Manual) Eosinophils % (Manual) Myelocytes % Diff Path Review Platelet Estimate RBC Morphology Sodium Potassium Chloride Carbon Dioxide Anion Gap BUN Creatinine Estim Creat Clear Calc Est GFR (MDRD) Af Amer Est GFR (MDRD) Non-Af BUN/Creatinine Ratio Glucose Calcium Vancomycin Trough 16.5 H Home Medications: Medications to take at Discharge Acetaminophen 1 - 2 tab PO Q4H PRN 08/05/18 Bisacodyl 10 mg RC PRN PRN 08/05/18 Divalproex Sodium [Depakote] 125 mg PO BID 08/05/18 Hydrocortisone Acetate Cream [Anusol Hc] 1 applic RECTAL DAILY PRN PRN 08/05/18 Lisinopril 2.5 mg PO DAILY 08/05/18 Lorazepam [Ativan] 0.5 mg PO Q6H PRN 08/05/18 Mag Hydrox/Aluminum Hyd/Simeth [Antacid Suspension] 355 ml PO Q4H PRN 08/05/18 Risperidone [Risperdal] 0.5 mg PO QHS 08/05/18 Tamsulosin HCl [Flomax] 0.8 mg PO DAILY 08/05/18 traZODone [Desyrel] 100 mg PO QHS 08/05/18 Finasteride [Proscar] 5 mg PO DAILY 09/07/18 Sennosides/Docusate Sodium [Senna-Docusate Sodium Tablet] 1 each PO DINNER 09/08/18 Bisacodyl [Dulcolax] 5 mg PO DAILY PRN PRN tablet 09/12/18 Magnesium Hydroxide [Milk Of Magnesia] 30 ml PO DAILY PRN PRN udc 09/12/18 Vancomycin IV 1,250 mg IV Q12H 26 Days #52 vial 09/12/18 Following Prescrptions Were Given to Patient: Vancomycin IV 1,250 mg IV Q12H 26 Days #52 vial Primary Care Physician: Emanuel Nelson MD [Primary Care Provider] - Please follow up with your Primary Care Physician in: 2 weeks Disposition: Senior Living facility Minutes spent on discharge:: 40 Patient Condition:: Stable Medical Necessity - Tobacco Use Smoking Status: Former smoker Tobacco Use: Non-smoker Meaningful Use Info Meaningful Use Diagnoses (Choose all that apply): None applicable Code Visit Inpatient E&M: 74143 Disch Hosp
--- NOTE | 2018-09-12 14:13 | DS.PCM_ITS ---
Discharge Date and Diagnosis Date of Admission: 09/07/18 Date of Discharge: 09/12/18 - Primary Discharge Diagnosis Active and Suspected Problems (Last Updated 09/07/18 @ 23:57 by Ryan Yu MD) Aspiration pneumonia (Acute) - suspected UTI (urinary tract infection) (Acute) - SA MRSA bacteremia (Acute) - source undetermined Encephalopathy due to infection (Acute) - resolved Acute renal failure (Acute)-resolved Normochromic normocytic anemia (Acute) Dehydration - Secondary Discharge Diagnosis Chronic Problems (Last Updated 09/07/18 @ 23:57 by Ryan Yu MD) Dementia with behavioral disturbance (Chronic) - on Depakote BPH (benign prostatic hyperplasia) (Chronic) Hypertension (Chronic) Mild aortic stenosis (Chronic) Mitral valve prolapse (Chronic) Hospital Course and Treatment Imaging Results: Clinical Impression(s) from Imaging Studies Brain CT 09/07/18 21:39 IMPRESSION: 1. Chronic right basal ganglia lacunar infarct. 2. Microvascular ischemia. Atrophy. 3. 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 ENT evaluation is advised. Electronically Signed: Ruth Barrios MD at 23:01 EST Tel , Service support , Cervical Spine CT 09/07/18 21:39 IMPRESSION: Normal alignment of the cervical spine without acute fracture deformity. Degenerative disc and joint changes as stated above. Bilateral carotid artery calcifications. Electronically Signed: Mavis Peña MD at 23:40 EST , Service support , Chest X-Ray 09/07/18 21:47 IMPRESSION: No acute cardiopulmonary findings or changes. Negative for major consolidation, focal atelectasis, cardiomegaly or pleural effusion. Electronically Signed: Mavis Peña MD at 23:26 EST , Service support , Chest X-Ray 09/09/18 05:55 IMPRESSION: Increased markings at the lung bases suggesting bibasilar atelectasis and/or early infiltrates worse on the right base. Electronically Signed: J Carlos Oliva MD at 11:27 EST , Service support , Laboratory Results - last 24 hr 09/11/18 09/12/18 09/12/18 05:50 05:32 05:32 WBC 8.7 RBC 4.15 L Hgb 11.8 L Hct 38.9 L MCV 93.7 MCH 28.4 MCHC 30.3 L RDW 13.2 RDW Differential 44.7 H Plt Count 181 MPV 8.3 Neut % (Auto) Not Reportable Absolute Neuts (auto) 6.4 Absolute Lymphs (auto) 0.95 Total Counted 100 Neutrophils % (Manual) 73 H Lymphocytes % (Manual) 11 L Monocytes % (Manual) 12 H Eosinophils % (Manual) 2 Myelocytes % 2 H Diff Path Review Reviewed May foll Platelet Estimate ADEQUATE RBC Morphology NORM C+C Sodium 142 Potassium 3.6 Chloride 109 H Carbon Dioxide 22.0 Anion Gap 11 BUN 22 H Creatinine 0.60 L Estim Creat Clear Calc 51.15 Est GFR (MDRD) Af Amer 166 Est GFR (MDRD) Non-Af 137 BUN/Creatinine Ratio 36.5 H Glucose 91 Calcium 8.3 L Vancomycin Trough 09/12/18 09:56 WBC RBC Hgb Hct MCV MCH MCHC RDW RDW Differential Plt Count MPV Neut % (Auto) Absolute Neuts (auto) Absolute Lymphs (auto) Total Counted Neutrophils % (Manual) Lymphocytes % (Manual) Monocytes % (Manual) Eosinophils % (Manual) Myelocytes % Diff Path Review Platelet Estimate RBC Morphology Sodium Potassium Chloride Carbon Dioxide Anion Gap BUN Creatinine Estim Creat Clear Calc Est GFR (MDRD) Af Amer Est GFR (MDRD) Non-Af BUN/Creatinine Ratio Glucose Calcium Vancomycin Trough 16.5 H Microbiology 09/07/18 21:50 Blood Culture (Wb) - Anticubital Left Blood Culture - Final Meth. resistant Staph. aureus 09/10/18 10:05 Blood Culture (Wb) - Right Forearm Blood Culture - Preliminary No growth in 48 hours. 09/07/18 21:55 Blood Culture (Wb) - Anticubital Right Blood Culture - Final Staphylococcus aureus 09/07/18 22:10 Urine Catheter - Mullen Urine Culture - Final Staphylococcus aureus Mixed Gram Positive Organisms 09/07/18 22:10 Urine Catheter - Catheter Streptococcus pneumoniae Antigen (M - Final 09/07/18 22:10 Urine Catheter - Catheter Legionella Antigen - Final Dr. Yonatan Harvey-infectious disease Operations: None Procedures: 2-D Echocardiogram - Interpretation Summary Left ventricular systolic function is normal. The estimated ejection fraction is 65 %. Mild diffuse mitral valve thickening. Mild mitral valve prolapse, posterior leaflet Mild (1+) eccentric mitral valve insufficiency. Mild diffuse thickening of the tricuspid valve. Mild tricuspid valve insufficiency. Mild aortic stenosis. Trivial aortic valve insufficiency. Mild (1+) pulmonic valve insufficiency. Trivial pericardial effusion. There are no echocardiographic indications of cardiac tamponade. Right ventricular systolic pressure estimated to be 29 mmHg. No evidence for diastolic dysfunction. Summary of Care Provided: The patient is a 78 year old M who resides in a locked psychiatric helm at [facility] with a past medical history of hypertension and BPH with chronic indwelling Mullen catheter. He was brought to the emergency department at [facility] on 09/07/2018 because of a fall. He had been started on Macrobid 2 days prior to presenting fever to the emergency room for a urinary tract infection. White blood cell count in the ER was 9.7 with 86% neutrophils. Hemoglobin was 11.9 and platelets were within normal limits. BMP was remarkable for a BUN of 44 with a creatinine of 1.11. Lactic acid was 1.5. The UA showed 0-10 WBCs per high-power field. A chest x-ray showed no infiltrates, pleural effusions or pulmonary vascular congestion. The room air saturation ranged between 84-85% and he was started on supplemental oxygen via a nasal cannula. CT scan of the brain and neck showed no acute findings. He was admitted to the hospital with a diagnosis of urinary tract infection, acute metabolic encephalopathy secondary to urinary tract infection, dehydration and probable aspiration pneumonia with acute respiratory insufficiency with hypoxemia. He also had ARF likely due to dehydration. Zosyn was started in the emergency room and continued at admission. Blood and urine cultures were sent. The blood cultures grew a methicillin-resistant staph aureus and he was started on vancomycin. A surface echocardiogram revealed no evidence of vegetation. The urine also grew staph aureus. On 09/12/2018 the temp was 97.7 and vital signs were stable. Mental status was at baseline with confusion but no severe agitation. Hemoglobin was stable at 11.8 and the white blood cell count was 8.7. He had 73% neutrophils. BUN was down to 22 and his creatinine was 0.6. He was discharged back to the residential on intravenous vancomycin after PICC line insertion and the stop date for the vancomycin will be 10/07/2018. He needs BMP, CBC and Vanco trough weekly while on vancomycin. The source of the MRSA infection was undetermined at the time of discharge. Results of the weekly lab will be sent to Dr. Harvey. Alert but confused Lungs - CTA H- RRR, no gallop and no rub, no change in MM Abdomen-soft, nontender, nondistended, no guarding with palpation No clubbing, no cyanosis, no edema No splinter hemorrhages This note was generated with [employer] dictation software. It may contain incorrect words, spelling, and punctuation that were not noted in checking the note before signing. - Physical Exam Vital Signs Temp Pulse Resp BP Pulse Ox 97.7 F L 77 14 115/61 98 09/12/18 13:45 09/12/18 13:45 09/12/18 13:45 09/12/18 13:45 09/12/18 13:45 Oxygen Flow Rate (L/min) 3 Oxygen Delivery Method Room Air Weight: 135 lb 5.01 oz Body Mass Index (BMI) 20.0 Intake and Output for Last 24 Hours 09/10/18 09/11/18 09/12/18 23:59 23:59 23:59 Intake Total 2064 / 2064 2211 / 2211 200 / 200 Output Total 2250 / 2250 1850 / 1850 700 / 700 Balance -186 / -186 361 / 361 -500 / -500 Microbiology Past 72 Hours 09/07/18 21:50 Blood Culture - Final Blood Culture (Wb) - Anticubital Left Meth. resistant Staph. aureus 09/10/18 10:05 Blood Culture - Preliminary Blood Culture (Wb) - Right Forearm No growth in 48 hours. 09/07/18 21:55 Blood Culture - Final Blood Culture (Wb) - Anticubital Right Staphylococcus aureus 09/07/18 22:10 Urine Culture - Final Urine Catheter - Mullen Staphylococcus aureus Mixed Gram Positive Organisms Laboratory Tests Past 24 Hrs 09/11/18 09/12/18 09/12/18 05:50 05:32 05:32 WBC 8.7 RBC 4.15 L Hgb 11.8 L Hct 38.9 L MCV 93.7 MCH 28.4 MCHC 30.3 L RDW 13.2 RDW Differential 44.7 H Plt Count 181 MPV 8.3 Neut % (Auto) Not Reportable Absolute Neuts (auto) 6.4 Absolute Lymphs (auto) 0.95 Total Counted 100 Neutrophils % (Manual) 73 H Lymphocytes % (Manual) 11 L Monocytes % (Manual) 12 H Eosinophils % (Manual) 2 Myelocytes % 2 H Diff Path Review Reviewed November foll Platelet Estimate ADEQUATE RBC Morphology NORM C+C Sodium 142 Potassium 3.6 Chloride 109 H Carbon Dioxide 22.0 Anion Gap 11 BUN 22 H Creatinine 0.60 L Estim Creat Clear Calc 51.15 Est GFR (MDRD) Af Amer 166 Est GFR (MDRD) Non-Af 137 BUN/Creatinine Ratio 36.5 H Glucose 91 Calcium 8.3 L Vancomycin Trough 09/12/18 09:56 WBC RBC Hgb Hct MCV MCH MCHC RDW RDW Differential Plt Count MPV Neut % (Auto) Absolute Neuts (auto) Absolute Lymphs (auto) Total Counted Neutrophils % (Manual) Lymphocytes % (Manual) Monocytes % (Manual) Eosinophils % (Manual) Myelocytes % Diff Path Review Platelet Estimate RBC Morphology Sodium Potassium Chloride Carbon Dioxide Anion Gap BUN Creatinine Estim Creat Clear Calc Est GFR (MDRD) Af Amer Est GFR (MDRD) Non-Af BUN/Creatinine Ratio Glucose Calcium Vancomycin Trough 16.5 H Home Medications: Medications to take at Discharge Acetaminophen 1 - 2 tab PO Q4H PRN 08/05/18 Bisacodyl 10 mg RC PRN PRN 08/05/18 Divalproex Sodium [Depakote] 125 mg PO BID 08/05/18 Hydrocortisone Acetate Cream [Anusol Hc] 1 applic RECTAL DAILY PRN PRN 08/05/18 Lisinopril 2.5 mg PO DAILY 08/05/18 Lorazepam [Ativan] 0.5 mg PO Q6H PRN 08/05/18 Mag Hydrox/Aluminum Hyd/Simeth [Antacid Suspension] 355 ml PO Q4H PRN 08/05/18 Risperidone [Risperdal] 0.5 mg PO QHS 08/05/18 Tamsulosin HCl [Flomax] 0.8 mg PO DAILY 08/05/18 traZODone [Desyrel] 100 mg PO QHS 08/05/18 Finasteride [Proscar] 5 mg PO DAILY 09/07/18 Sennosides/Docusate Sodium [Senna-Docusate Sodium Tablet] 1 each PO DINNER 09/08/18 Bisacodyl [Dulcolax] 5 mg PO DAILY PRN PRN tablet 09/12/18 Magnesium Hydroxide [Milk Of Magnesia] 30 ml PO DAILY PRN PRN udc 09/12/18 Vancomycin IV 1,250 mg IV Q12H 26 Days #52 vial 09/12/18 Following Prescrptions Were Given to Patient: Vancomycin IV 1,250 mg IV Q12H 26 Days #52 vial Primary Care Physician: Emanuel Nelson MD [Primary Care Provider] - Please follow up with your Primary Care Physician in: 2 weeks Disposition: [facility] facility Minutes spent on discharge:: 40 Patient Condition:: Stable Medical Necessity - Tobacco Use Smoking Status: Former smoker Tobacco Use: Non-smoker Meaningful Use Info Meaningful Use Diagnoses (Choose all that apply): None applicable Code Visit Inpatient E&M: 67203 Disch Hosp
--- NOTE | 2018-09-12 14:20 | CASEMGMT ---
Social Work Note Pt is discharging today back to [facility] today. MARITZA faxed completed discharge paperwork to Livier at [facility] including transfer to extended care facility, signed medication list and any scripts. Originals in SNF folder and copy on pt's chart. MARITZA completed convalescent [facility] in [place]. Original in SNF folder and copy on pt's chart. MARITZA arranged transportation through [facility] via cot for 4:00pm. Transportation form on SNF folder and copy on pt's chart. MARITZA updated pt's , alumnae secretary, RN and Livier at [facility] of transportation time. Plan: Pt to return to [facility] skilled today with [facility] transporting via cot at 4:00pm Liz ROUSE, PROFESSOR OF ART HISTORY
--- NOTE | 2018-09-12 15:10 | NURSING ---
REPORT CALLED TO ALINA AT [facility]. [facility] SCHEDULED FOR DOCUMENT ADVISOR AT 1600
[2018-09-13 13:21] LABS: Pathologist Review Reviewed
== END 2018-09-12 16:45 | disposition skilled nursing facility (03) | DRG 177 ==
LOC: ED 22:35 → MS3 23:09
PROVIDERS: Student in an Organized Health Care Education/Training Program; Admitting Provider Hospitalist; Emergency Provider Emergency Medicine; Family Provider Family Medicine; PCP Family Medicine; Referring Provider Hospitalist; Visit Provider Internal Medicine
DX: J69.0 Pneumonitis due to inhalation of food and vomit (principal); G93.41 Metabolic encephalopathy; J96.01 Acute respiratory failure with hypoxia; T83.511A Infection and inflammatory reaction due to indwelling urethral catheter, initial encounter; N39.0 Urinary tract infection, site not specified; F03.91 Unspecified dementia, unspecified severity, with behavioral disturbance; N17.9 Acute kidney failure, unspecified; R78.81 Bacteremia; N13.8 Other obstructive and reflux uropathy; S20.219A Contusion of unspecified front wall of thorax, initial encounter; W19.XXXA Unspecified fall, initial encounter; Y92.129 Unspecified place in nursing home as the place of occurrence of the external cause; B95.62 Methicillin resistant Staphylococcus aureus infection as the cause of diseases classified elsewhere; G40.909 Epilepsy, unspecified, not intractable, without status epilepticus; D64.9 Anemia, unspecified; I35.0 Nonrheumatic aortic (valve) stenosis; I34.1 Nonrheumatic mitral (valve) prolapse; N40.1 Benign prostatic hyperplasia with lower urinary tract symptoms; Z79.899 Other long term (current) drug therapy; Z87.891 Personal history of nicotine dependence; Z66 Do not resuscitate
CPT/HCPCS: 36415; 36569; 51702; 70450; 71045; 72125; 80048; 80053; 80202; 81001; 83605; 85025; 85610; 85730; 87040; 87077; 87086; 87088; 87186; 87449; 87641; 92526; 92610; 93005; 93306; 94640; 97162; 97166; 97530; 97802; 99285; J7030; J7040; J7050; A4216